=== PATIENT | female | born 1930 | race African-American/Black ===

== ENCOUNTER 2016-11-27 12:55 | Emergency (ER) | payer MEDICARE ==
[~2016-11-27] VITALS: Ht 162.6 cm; Wt 68.0 kg
[~2016-11-27 12:55] MED LIST: AMLO10 PO; ATOR20TA PO; BACT800T5 PO; BISA10SU PR; CEFU1TAB20 PO; GLUCTAB PO; LEVO50TA51 PO; LORA-474 PO; NAME10TA PO; OMEP20TA PO; PLAV75TA PO
[2016-11-27 12:57] VITALS: BP 180/77; PULSE 17; PULSE 96; RESP 17; TEMP 98.2; O2SAT 98
[2016-11-27] MEDS ORDERED: METF1000 PO (16:09)
[2016-11-27] MEDS ORDERED: LORA1TAB12 PO (16:14)
[2016-11-27] MEDS ORDERED: NAME10TA PO (16:14)
[2016-11-27] MEDS ORDERED: OMEP20TA PO (16:14)
[2016-11-27] MEDS ORDERED: AMLO10 PO (16:14)
[2016-11-27] MEDS ORDERED: PLAV75TA29 PO (16:14)
[2016-11-27] MEDS ORDERED: ATOR20TA15 PO (16:14)
[2016-11-27] MEDS ORDERED: LEVO50TA53 PO (16:14)
[2016-11-27] MEDS ORDERED: CIPR-9 PO (16:18)
--- NOTE | 2016-11-27 16:19 | PD ---
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 Patient states that she saw blood clot in her diaper 3 days ago. Patient denies any headache. Patient denies any chest pain or shortness of breath. Patient denies abdominal pain. Patient will denies any pelvic pain. Patient denies any rectal pain. Patient has history of TIA on Plavix. Patient also has history hypertension, diabetes, dyslipidemia. Patient status post hysterectomy. PFSH Past Medical History Hx Anticoagulant Therapy: Yes (PLAVIX) Blood Disorders: No Anxiety: Yes Cancer: No Cardiovascular Problems: Yes (murmer) Cerebrovascular Accident: Yes (TIA) Dementia: Yes Diabetes: Yes Patient Takes Glucophage: Yes Diminished Hearing: No Endocrine: Yes Gastrointestinal Disorders: No Genitourinary: No Hypertension: Yes Immune Disorder: No Musculoskeletal: No Neurologic: No Psychiatric: No Reproductive: No Respiratory: No Thyroid Disease: Yes (hypo) ?: Not Menopausal: Yes Past Surgical History AICD: No Arteriovenous Shunt: No Gynecologic Surgery: Yes (HYSTERECTOMY) Hysterectomy: Yes Insulin Pump: No Joint Replacement: No Oral Surgery: Yes (UPPER TEETH REMOVED) Pacemaker: No Other Surgery: Yes Social History Alcohol Use: No Tobacco Use: No Substance Use: No Allergies-Medications (Allergen,Severity, Reaction): Coded Allergies: No Known Allergies (Verified , 11/15/15) Reported Meds & Prescriptions Reported Meds & Active Scripts Active Bactrim DS (Sulfamethoxazole-Trimethoprim DS) 1 Tab Tab 1 Tab PO BID 5 Days Reported Plavix (Clopidogrel Bisulfate) 75 Mg Tab 75 Mg PO DAILY Atorvastatin 20 mg tab (Atorvastatin Calcium) 20 Mg Tab 20 Mg PO DAILY 30 Days Cefuroxime Axetil 500 Mg Tab 500 Mg PO BID Bisacodyl 10 Mg Sup 10 Mg RI DAILY PRN Metformin (Metformin HCl) 500 Mg Tab 1,000 Mg PO TAKE ONE TAB WITH BREAKFAST AND 2 WITH DINNER, Omeprazole 20 mg (Omeprazole) 20 Mg Tab 20 Mg PO DAILY Namenda (Memantine) 10 Mg Tab 10 Mg PO BIDAC Norvasc (Amlodipine Besylate) 10 Mg Tab 10 Mg PO DAILY Ativan (Lorazepam) 1 Mg Tab 1 Mg PO BIDPRN Levoxyl (Levothyroxine Sodium) 50 Mcg Tab 75 Mcg PO DAILY Review of Systems General / Constitutional: No: Fever Eyes: No: Visual changes HENT: No: Headaches Cardiovascular: No: Chest Pain or Discomfort Respiratory: No: Shortness of Breath Gastrointestinal: No: Abdominal Pain Genitourinary: No: Dysuria Musculoskeletal: No: Pain Skin: No Rash Neurologic: No: Weakness Psychiatric: No: Depression Endocrine: No: Polydipsia Hematologic/Lymphatic: No: Easy Bruising Physical Exam Narrative GENERAL: Well-nourished, well-developed patient. SKIN: Warm and dry. HEAD: Normocephalic. EYES: No scleral icterus. No injection or drainage. NECK: Supple, trachea midline. No JVD or lymphadenopathy. CARDIOVASCULAR: Regular rate and rhythm without murmurs, gallops, or rubs. RESPIRATORY: Breath sounds equal bilaterally. No accessory muscle use. GASTROINTESTINAL: Abdomen soft, non-tender, nondistended. MUSCULOSKELETAL: No cyanosis, or edema. BACK: Nontender without obvious deformity. No CVA tenderness. 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 Patient has a small tear posterior aspect of the rectal without active bleeding. Data Data Last Documented VS Vital Signs Date Time Temp Pulse Resp B/P Pulse Ox O2 Delivery O2 Flow Rate FiO2 11/27/16 12:57 98.2 96 17 180/77 98 MDM Medical Decision Making Medical Screen Exam Complete: Yes Emergency Medical Condition: Yes Differential Diagnosis Differential diagnosis including hemorrhagic cystitis, vaginal bleeding, rectal bleeding. Narrative Course 86-year-old female with rectal tear. Patient is on Plavix. No active bleeding now. Diagnosis Primary Impression: Rectal tear Patient Instructions: General Instructions Additional Instructions: Cipro as directed. Follow-up with personal physician. Return if persistent problem or worse. Med/Other Pt SpecificInfo: Prescription(s) given Scripts Ciprofloxacin (Cipro)500 Mg [id number] Mg PO BID #10 TAB Prov:Aquiles Valdes MD 11/27/16 Disposition: 01 DISCHARGE HOME Condition: Stable Aquiles Valdes MD Nov 27, 2016 16:19
== END 2016-11-27 16:28 | disposition home or self-care (01) ==
LOC: NEPD 12:55
DX: K62.5 Hemorrhage of anus and rectum (principal); Z86.73 Personal history of transient ischemic attack (TIA), and cerebral infarction without residual deficits; I10 Essential (primary) hypertension; E03.9 Hypothyroidism, unspecified; Z79.01 Long term (current) use of anticoagulants
CPT/HCPCS: 99282

== ENCOUNTER 2018-05-07 09:17 | Inpatient (IN) ==
[2018-05-08] MEDS ORDERED: Labetalol HCl Inj 100 MG/20 ML Vial IV.PUSH PRN
[2018-05-08] MEDS ORDERED: LORazepam 1 MG Tablet PO PRN
[2018-05-08] MEDS ORDERED: Dextrose 50% in Water 50 ML Vial IV.PUSH PRN (00:01)
[2018-05-08 03:24] LABS: Free T4 (Free Thyroxine) 1.38 ng/dL (0.76-1.46); Thyroid Stimulating Hormone 0.824 uIU/mL (0.358-3.740); Vitamin B12 140 pg/mL (193-986)
[2018-05-08 04:07] LABS: Creatine Kinase 82 U/L (26-192)
[2018-05-08] MEDS: Levothyroxine 50 MCG Tablet PO SCH (05:35)
[2018-05-08] MEDS: Sod Chloride 0.9% Inj 1,000 ML IV.SIG SCH ×3 (05:39→22:09)
[2018-05-08] MEDS: Insulin NovoLOG Aspart Correctional Sugar Inj SQ SCH ×4 (05:45→22:05)
[2018-05-08 08:55] LABS: Chol/HDL Ratio 6.45 Ratio; HDL Cholesterol 31.3 mg/dL (40.0-60.0)
[2018-05-08] MEDS: amLODIPine 10 MG Tablet PO SCH (10:01)
[2018-05-08] MEDS: Nitrofurantoin Monohydrate-Macrocrystal 100 MG Capsule PO SCH ×2 (10:01→22:06)
--- NOTE | 2018-05-08 11:46 | P.PNNEU ---
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 sr she has worsened overnoc Active Medications: Active Medications Generic Name Dose Route Start Last Admin Trade Name Rocco PRN Reason Stop Dose Admin Amlodipine Besylate 10 mg 05/08/18 09:00 05/08/18 10:01 Norvasc PO Not Given DAILY [facility] Aspirin 300 mg 05/08/18 11:24 Aspirin Supp RECTAL 05/08/18 11:25 ONCE ONE Aspirin 325 mg 05/08/18 09:00 05/08/18 10:00 Ecotrin PO Not Given DAILY [facility] Atorvastatin Calcium 20 mg 05/08/18 12:30 Lipitor PO HS [facility] Clopidogrel Bisulfate 75 mg 05/08/18 09:00 05/08/18 10:01 Plavix PO Not Given DAILY [facility] Dextrose 50 ml 05/08/18 00:01 D50w Vial IV.PUSH UNSCH PRN PER HYPOGLYCEMIA PROTOCOL Enoxaparin Sodium 30 mg 05/08/18 12:30 Lovenox Inj SQ Q24H [facility] Glucagon 1 mg 05/08/18 00:01 Glucagon Inj OTHER PRN PRN for Hypoglycemia Protocol Sodium Chloride 1,000 mls @ 75 mls/hr 05/08/18 00:00 05/08/18 05:39 Ns Inj IV.SIG 75 mls/hr .[id number] [facility] Administration Insulin Aspart 0 unit 05/08/18 00:01 05/08/18 09:23 Novolog Insulin Suppl Scale Inj SQ Not Given ACHS [facility] Protocol Labetalol HCl 10 mg 05/08/18 00:00 Trandate Inj IV.PUSH Q2H PRN SBP >220, DBP >120 Levothyroxine Sodium 50 mcg 05/08/18 06:00 05/08/18 05:35 Synthroid PO 50 mcg DAILY@0600 [facility] Administration Lorazepam 1 mg 05/08/18 00:00 Ativan PO HS PRN ANXIETY AND OR INSOMNIA Memantine 10 mg 05/08/18 09:00 05/08/18 10:01 Namenda PO Not Given BID [facility] Nitrofurantoin Macrocrystals 100 mg 05/08/18 09:00 05/08/18 10:01 [facility] Sodium Chloride 10 ml 05/08/18 09:00 05/08/18 10:01 Ns Flush IV.FLUSH Not Given BID [facility]EN Sodium Chloride 10 ml 05/08/18 00:00 Ns Flush IV.FLUSH UNSCH PRN FLUSH AFTER USING IV ACCESS Allergies/Adverse Reactions: Allergies Allergy/AdvReac Type Severity Reaction Status Date / Time No Known Allergies Allergy Unknown Uncoded 05/07/18 12:40 Physical Exam Vital signs: Vital Signs 05/08/18 00:49 05/08/18 04:40 05/08/18 08:00 Temperature 97.9 F 98 F 97.9 F Pulse Rate 80 87 77 Respiratory Rate 18 18 18 Blood Pressure 148/80 H 156/77 H 174/83 H Pulse Oximetry 98 98 100 05/08/18 09:14 Temperature Pulse Rate Respiratory Rate 18 Blood Pressure Pulse Oximetry Intake & Output 05/07/18 05/08/18 05/08/18 18:59 06:59 18:59 Intake Total 0 / 0 Balance 0 / 0 Intake: Oral 0 / 0 Other: # Incontinent Voids 6 # Bowel Movements 0 Narrative: She is awake but speech is severely dysarthric and now 0 out of 5 on the right upper and lower extremities she can move the left well. There is a right facial droop severe Objective Laboratory Results - last 24 hr 05/07/18 05/07/18 05/07/18 09:30 09:30 09:30 WBC RBC Hgb Hct MCV MCH MCHC RDW Plt Count MPV Neut % (Auto) Lymph % (Auto) [place] % (Auto) Eos % (Auto) Baso % (Auto) Neut # (Auto) Lymph # (Auto) [place] # (Auto) Eos # (Auto) Baso # (Auto) CBC Comment ESR PT 10.3 INR 1.0 APTT 25.9 Sodium 138 Potassium 4.1 Chloride 101 Carbon Dioxide 25.8 Anion Gap 11 BUN 13 Creatinine 0.94 Estimated GFR 68 L POC Glucose Random Glucose 132 H Calcium 8.9 Phosphorus 2.4 L Magnesium 1.7 Total Bilirubin 0.3 AST 31 ALT 36 Alkaline Phosphatase 88 Total Creatine Kinase 52 Troponin I LESS THAN 0.02 L B-Natriuretic Peptide 82 Total Protein 8.3 H Albumin 3.7 Triglycerides Cholesterol LDL Cholesterol, Calc HDL Cholesterol Cholesterol/HDL Ratio Vitamin B12 TSH Free T4 Urine Color Urine Turbidity Urine pH Ur Specific [place] Urine Protein Urine Glucose (UA) Urine Ketones Urine Occult Blood Urine Nitrite Urine Bilirubin Urine Urobilinogen Ur Leukocyte Esterase Urine RBC Urine WBC Ur Squamous Epith Cells Urine Bacteria Micro UA Comment 05/07/18 05/07/18 05/07/18 09:30 10:20 18:00 WBC 10.1 RBC 4.36 Hgb 11.7 Hct 34.9 L MCV 79.9 L MCH 26.8 L MCHC 33.5 RDW 14.6 Plt Count 299 MPV 8.3 Neut % (Auto) 68.3 Lymph % (Auto) 21.0 [place] % (Auto) 7.7 Eos % (Auto) 2.3 Baso % (Auto) 0.7 Neut # (Auto) 6.9 Lymph # (Auto) 2.1 [place] # (Auto) 0.8 Eos # (Auto) 0.2 Baso # (Auto) 0.1 CBC Comment DIFF FINAL ESR PT INR APTT Sodium Potassium Chloride Carbon Dioxide Anion Gap BUN Creatinine Estimated GFR POC Glucose Random Glucose Calcium Phosphorus Magnesium Total Bilirubin AST ALT Alkaline Phosphatase Total Creatine Kinase 90 Troponin I LESS THAN 0.02 L B-Natriuretic Peptide Total Protein Albumin Triglycerides Cholesterol LDL Cholesterol, Calc HDL Cholesterol Cholesterol/HDL Ratio Vitamin B12 TSH Free T4 Urine Color YELLOW Urine Turbidity HAZY H Urine pH 7.0 Ur Specific [place] 1.008 Urine Protein NEG Urine Glucose (UA) NEG Urine Ketones NEG Urine Occult Blood NEG Urine Nitrite POS H Urine Bilirubin NEG Urine Urobilinogen LESS THAN 2 Ur Leukocyte Esterase SMALL H Urine RBC 1 Urine WBC 6 H Ur Squamous Epith Cells 1 Urine Bacteria MANY H Micro UA Comment CATH-CULTURE IND 05/08/18 05/08/18 05/08/18 02:00 06:03 06:03 WBC RBC Hgb Hct MCV MCH MCHC RDW Plt Count MPV Neut % (Auto) Lymph % (Auto) [place] % (Auto) Eos % (Auto) Baso % (Auto) Neut # (Auto) Lymph # (Auto) [place] # (Auto) Eos # (Auto) Baso # (Auto) CBC Comment ESR 38 H PT INR APTT Sodium Potassium Chloride Carbon Dioxide Anion Gap BUN Creatinine Estimated GFR POC Glucose Random Glucose Calcium Phosphorus Magnesium Total Bilirubin AST ALT Alkaline Phosphatase Total Creatine Kinase 82 Troponin I Less than 0.02 L B-Natriuretic Peptide Total Protein Albumin Triglycerides 174 H Cholesterol 202 H LDL Cholesterol, Calc 136 H HDL Cholesterol 31.3 L Cholesterol/HDL Ratio 6.45 Vitamin B12 140 L TSH 0.824 Free T4 1.38 Urine Color Urine Turbidity Urine pH Ur Specific [place] Urine Protein Urine Glucose (UA) Urine Ketones Urine Occult Blood Urine Nitrite Urine Bilirubin Urine Urobilinogen Ur Leukocyte Esterase Urine RBC Urine WBC Ur Squamous Epith Cells Urine Bacteria Micro UA Comment 05/08/18 09:13 WBC RBC Hgb Hct MCV MCH MCHC RDW Plt Count MPV Neut % (Auto) Lymph % (Auto) [place] % (Auto) Eos % (Auto) Baso % (Auto) Neut # (Auto) Lymph # (Auto) [place] # (Auto) Eos # (Auto) Baso # (Auto) CBC Comment ESR PT INR APTT Sodium Potassium Chloride Carbon Dioxide Anion Gap BUN Creatinine Estimated GFR POC Glucose 142 H Random Glucose Calcium Phosphorus Magnesium Total Bilirubin AST ALT Alkaline Phosphatase Total Creatine Kinase Troponin I B-Natriuretic Peptide Total Protein Albumin Triglycerides Cholesterol LDL Cholesterol, Calc HDL Cholesterol Cholesterol/HDL Ratio Vitamin B12 TSH Free T4 Urine Color Urine Turbidity Urine pH Ur Specific [place] Urine Protein Urine Glucose (UA) Urine Ketones Urine Occult Blood Urine Nitrite Urine Bilirubin Urine Urobilinogen Ur Leukocyte Esterase Urine RBC Urine WBC Ur Squamous Epith Cells Urine Bacteria Micro UA Comment Review/Management - Review/Management Plan: Impression 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 Her B12 is low we will give her B12 shot and her LDL is low she needs to be on a statin but appears to be an aspiration risk at this time. I will follow-up her echo and Holter. I would keep her flat for today.
--- NOTE | 2018-05-08 12:55 | P.PNFP ---
<Rina Wick N - Last Filed: 05/08/18 13:18> Subjective Interval history: Vitals stable overnight. MRI showed tiny areas of probably subacute infarction of the bueno radiata. Nurse reports that patient is more lethargic this morning, still not able to take PO. Pt not able to respond to questions this morning and not cooperative with exam, speech was not understandable. Results - Labs Result diagrams: 05/07/18 09:30 05/07/18 09:30 Abnormal lab results 05/07/18 05/07/18 05/07/18 Range/Units 09:30 09:30 10:20 Hct 34.9 L (35.0-46.0) % MCV 79.9 L (80.0-100.0) FL MCH 26.8 L (27.0-34.0) PG ESR (0-30) mm/hr Estimated GFR 68 L (>89) ML/MIN POC Glucose (68-110) mg/dl Random Glucose 132 H (74-106) MG/DL Phosphorus 2.4 L (2.5-4.9) MG/DL Troponin I LESS THAN 0.02 L (0.02-0.05) NG/ML Total Protein 8.3 H (6.4-8.2) GM/DL Triglycerides (42-150) mg/dL Cholesterol (120-200) mg/dL LDL Cholesterol, Calc (0-99) mg/dL HDL Cholesterol (40.0-60.0) mg/dL Vitamin B12 (193-986) pg/mL Urine Turbidity HAZY H (CLEAR) Urine Nitrite POS H (NEG) Ur Leukocyte Esterase SMALL H (NEG) Urine WBC 6 H (0-5) /hpf Urine Bacteria MANY H (NONE) /hpf 05/07/18 05/08/18 05/08/18 Range/Units 18:00 02:00 06:03 Hct (35.0-46.0) % MCV (80.0-100.0) FL MCH (27.0-34.0) PG ESR (0-30) mm/hr Estimated GFR (>89) ML/MIN POC Glucose (68-110) mg/dl Random Glucose (74-106) MG/DL Phosphorus (2.5-4.9) MG/DL Troponin I LESS THAN 0.02 L Less than 0.02 L (0.02-0.05) NG/ML Total Protein (6.4-8.2) GM/DL Triglycerides 174 H (42-150) mg/dL Cholesterol 202 H (120-200) mg/dL LDL Cholesterol, Calc 136 H (0-99) mg/dL HDL Cholesterol 31.3 L (40.0-60.0) mg/dL Vitamin B12 140 L (193-986) pg/mL Urine Turbidity (CLEAR) Urine Nitrite (NEG) Ur Leukocyte Esterase (NEG) Urine WBC (0-5) /hpf Urine Bacteria (NONE) /hpf 05/08/18 05/08/18 05/08/18 Range/Units 06:03 09:13 12:45 Hct (35.0-46.0) % MCV (80.0-100.0) FL MCH (27.0-34.0) PG ESR 38 H (0-30) mm/hr Estimated GFR (>89) ML/MIN POC Glucose 142 H 131 H (68-110) mg/dl Random Glucose (74-106) MG/DL Phosphorus (2.5-4.9) MG/DL Troponin I (0.02-0.05) NG/ML Total Protein (6.4-8.2) GM/DL Triglycerides (42-150) mg/dL Cholesterol (120-200) mg/dL LDL Cholesterol, Calc (0-99) mg/dL HDL Cholesterol (40.0-60.0) mg/dL Vitamin B12 (193-986) pg/mL Urine Turbidity (CLEAR) Urine Nitrite (NEG) Ur Leukocyte Esterase (NEG) Urine WBC (0-5) /hpf Urine Bacteria (NONE) /hpf Short CBC 05/07/18 Range/Units 09:30 WBC 10.1 (4.0-11.0) TH/MM3 Hgb 11.7 (11.6-15.3) GM/DL Hct 34.9 L (35.0-46.0) % Plt Count 299 (150-450) TH/MM3 [facility] 05/07/18 09:30 Sodium 138 Potassium 4.1 Chloride 101 Carbon Dioxide 25.8 BUN 13 Creatinine 0.94 Calcium 8.9 Cardiac Enzymes 05/07/18 05/07/18 05/08/18 Range/Units 09:30 18:00 02:00 Total Creatine Kinase 52 90 82 (26-192) U/L Troponin I LESS THAN 0.02 L LESS THAN 0.02 L Less than 0.02 L (0.02-0.05) NG/ML Liver Function 05/07/18 Range/Units 09:30 Total Bilirubin 0.3 (0.2-1.0) MG/DL AST 31 (15-37) U/L ALT 36 (10-53) U/L Alkaline Phosphatase 88 (45-117) U/L Albumin 3.7 (3.4-5.0) GM/DL Urine 05/07/18 Range/Units 10:20 Urine Color YELLOW (YELLW/STRAW) Urine pH 7.0 (5.0-8.5) Ur Specific [place] 1.008 (1.002-1.035) Urine Protein NEG (NEG-TRACE) mg/dL Urine Glucose (UA) NEG (NEG) mg/dL Physical Exam Vital signs: Vital Signs 05/08/18 00:49 05/08/18 04:40 05/08/18 08:00 Temperature 97.9 F 98 F 97.9 F Pulse Rate 80 87 77 Respiratory Rate 18 18 18 Blood Pressure 148/80 H 156/77 H 174/83 H Pulse Oximetry 98 98 100 05/08/18 09:14 Temperature Pulse Rate Respiratory Rate 18 Blood Pressure Pulse Oximetry Intake & Output 05/07/18 05/08/18 05/08/18 18:59 06:59 18:59 Intake Total 0 / 0 Balance 0 / 0 Intake: Oral 0 / 0 Other: # Incontinent Voids 6 # Bowel Movements 0 Narrative: GENERAL: This is a drowsy, Black woman laying flat in bed. Awakened to initial stimuli on exam, does not respond to most questions. Occasionally gives one word answers that are difficult to understand. SKIN: Warm and dry. HEAD: Normocephalic. EYES: No scleral icterus. No injection or drainage. NECK: Supple, trachea midline. No JVD or lymphadenopathy. CARDIOVASCULAR: Regular rate and rhythm without murmurs, gallops, or rubs. RESPIRATORY: Breath sounds equal bilaterally. No accessory muscle use. GASTROINTESTINAL: Abdomen soft, non-tender, nondistended. MUSCULOSKELETAL: No cyanosis, or edema. BACK: Nontender without obvious deformity. No CVA tenderness. NEURO: Is able to grasp left hand. Not able to lift bilateral legs or hot frame tender with right hand. Right hand remains clasped to chest, is able to be extended but shows a clasp-knife response. Right sided facial droop noted with lack of nasolabial fold. Assessment and Plan - Assessment (1) Facial droop due to stroke Status: Acute (2) Right sided weakness Code(s): R53.1 - Weakness Status: Acute (3) UTI (urinary tract infection) Code(s): N39.0 - Urinary tract infection, site not specified Status: Acute (4) DM2 (diabetes mellitus, type 2) Code(s): E11.9 - Type 2 diabetes mellitus without complications Status: Acute (5) Hypothyroidism Code(s): E03.9 - Hypothyroidism, unspecified Status: Acute (6) History of CVA (cerebrovascular accident) Code(s): Z86.73 - Personal history of transient ischemic attack (TIA), and cerebral infarction without residual deficits Status: Acute (7) HTN (hypertension) Code(s): I10 - Essential (primary) hypertension Status: Acute (8) Anxiety Code(s): F41.9 - Anxiety disorder, unspecified Status: Acute (9) Dementia Code(s): F03.90 - Unspecified dementia without behavioral disturbance Status: Acute - Plan 88-year-old female with a history of Alzheimer's dementia, stroke, diabetes mellitus 2 admitted for right facial droop and right-sided weakness. Currently NPO. Will require treatment w/oral plavix and asa long-term and treatment of UTI when PO. Currently on ASA suppository. Neuro exam worsened today. Follow-up EEG, echo, and neurology recommendations. (1) Facial droop Status: Acute Plan: Neurology consulted MRI shows subacute lesions affecting corpus callosum on the left NPO, on IVF @70 mls/hr Neurology consulted: appreciate recs, plan to HOB flat, add aspirin to plavix ( asa supp for now due to NPO) Speech therapy consulted ACS r/o 2D echo of the heart ordered. Per previous documentation, patient had [place] [address] Chau and Dr[address] 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 Ejection fraction wnl. Had the bed flat for 12 hours, n.p.o. until passes speech eval and/or facial droop resolves Con't BP med when PO PT/OT consulted EEG ordered, f/u results (2) Right sided weakness ICD Codes: R53.1 - Weakness Status: Acute Plan: See above (3) UTI (urinary tract infection) ICD Codes: N39.0 - Urinary tract infection, site not specified Status: Acute Plan: Urine cx growing Gram - rods May need IV ceftriaxone for UTI treatment When no longer NPO, Macrobid 100 mg BID PO for a course of 5 days (4) DM2 (diabetes mellitus, type 2) ICD Codes: E11.9 - Type 2 diabetes mellitus without complications Status: Chronic Plan: Home medication is metformin Sliding scale insulin Accu-Cheks (5) Hypothyroidism ICD Codes: E03.9 - Hypothyroidism, unspecified Status: Chronic Plan: Continue home levothyroxine (6) History of CVA (cerebrovascular accident) ICD Codes: Z86.73 - Personal history of transient ischemic attack (TIA), and cerebral infarction without residual deficits Status: Chronic Plan: Continue home medications of Plavix, atorvastatin, amlodipine (7) HTN (hypertension) ICD Codes: I10 - Essential (primary) hypertension Status: Chronic Plan: See above plan (8) Anxiety ICD Codes: F41.9 - Anxiety disorder, unspecified Status: Chronic Plan: Controlled on lorazepam 1 mg p.o. at bedtime as needed for anxiety/ insomnia (home medication) Hold for now due to lethargy today (9) Dementia ICD Codes: F03.90 - Unspecified dementia without behavioral disturbance Status: Chronic Plan: Continue Namenda (home) (10) FEN Plan: Fluids: 70 MLS an hour IV maintenance Electrolytes: None Nutrition: N.p.o. until passes swallow study with speech DVT prophylaxis: Lovenox, SCDs DC pending clinical improvement, will likely need a SNF. <Scot Foster R - Last Filed: 05/09/18 07:43> Results - Labs Result diagrams: 05/07/18 09:30 05/07/18 09:30 Abnormal lab results 05/08/18 05/08/18 05/08/18 Range/Units 06:03 06:03 09:13 ESR 38 H (0-30) mm/hr ABG O2 Content (12.0-20.0) Vol % Hemoglobin (12.0-16.0) G/DL POC Glucose 142 H (68-110) mg/dl Triglycerides 174 H (42-150) mg/dL Cholesterol 202 H (120-200) mg/dL LDL Cholesterol, Calc 136 H (0-99) mg/dL HDL Cholesterol 31.3 L (40.0-60.0) mg/dL 05/08/18 05/08/18 05/08/18 Range/Units 12:45 17:13 18:36 ESR (0-30) mm/hr ABG O2 Content 21.9 H (12.0-20.0) Vol % Hemoglobin 16.8 H (12.0-16.0) G/DL POC Glucose 131 H 124 H (68-110) mg/dl Triglycerides (42-150) mg/dL Cholesterol (120-200) mg/dL LDL Cholesterol, Calc (0-99) mg/dL HDL Cholesterol (40.0-60.0) mg/dL 05/08/18 Range/Units 20:48 ESR (0-30) mm/hr ABG O2 Content (12.0-20.0) Vol % Hemoglobin (12.0-16.0) G/DL POC Glucose 120 H (68-110) mg/dl Triglycerides (42-150) mg/dL Cholesterol (120-200) mg/dL LDL Cholesterol, Calc (0-99) mg/dL HDL Cholesterol (40.0-60.0) mg/dL - Imaging Impressions Head MRI 05/08/18 00:00 CONCLUSION: Small evolving stroke in the left hemisphere Physical Exam Vital signs: Vital Signs 05/08/18 08:00 05/08/18 09:14 05/08/18 12:00 Temperature 97.9 F 98 F Pulse Rate 79 67 Respiratory Rate 18 18 18 Blood Pressure 174/83 H 179/79 H Pulse Oximetry 100 97 05/08/18 16:00 05/08/18 20:00 05/08/18 22:28 Temperature 98.1 F 98.8 F Pulse Rate 83 82 82 Respiratory Rate 18 19 Blood Pressure 162/79 H 145/80 H Pulse Oximetry 97 98 05/09/18 06:29 Temperature 98 F Pulse Rate 68 Respiratory Rate 17 Blood Pressure 157/74 H Pulse Oximetry 98 Intake & Output 05/08/18 05/09/18 05/09/18 18:59 06:59 18:59 Intake Total 1000 / 1000 200 / 200 Balance 1000 / 1000 200 / 200 Intake: IV 1000 / 1000 NS Inj 1,000 ML @ 75 mls/hr IV. 1000 / 1000 SIG .[id number] CADEN Rx#:[id number] Oral 200 / 200 Other: # Voids 2 # Incontinent Voids 4 # Bowel Movements 0 Assessment and Plan - Assessment (1) Facial droop due to stroke Status: Acute (2) Right sided weakness Code(s): R53.1 - Weakness Status: Acute (3) UTI (urinary tract infection) Code(s): N39.0 - Urinary tract infection, site not specified Status: Acute (4) DM2 (diabetes mellitus, type 2) Code(s): E11.9 - Type 2 diabetes mellitus without complications Status: Acute (5) Hypothyroidism Code(s): E03.9 - Hypothyroidism, unspecified Status: Acute (6) History of CVA (cerebrovascular accident) Code(s): Z86.73 - Personal history of transient ischemic attack (TIA), and cerebral infarction without residual deficits Status: Acute (7) HTN (hypertension) Code(s): I10 - Essential (primary) hypertension Status: Acute (8) Anxiety Code(s): F41.9 - Anxiety disorder, unspecified Status: Acute (9) Dementia Code(s): F03.90 - Unspecified dementia without behavioral disturbance Status: Acute - Attending Attestation The exam, history, and the medical decision-making described in the above note were completed with the assistance of the resident physician. I reviewed and agree with the findings presented. I attest that I had a [id number] encounter with the patient on the same day, and personally performed and documented my assessment and findings in the medical record.
[2018-05-08] MEDS ORDERED: Aspirin 300 MG Supp RECTAL ONE (13:00)
[2018-05-08] MEDS: Enoxaparin Inj 30 MG/0.3 ML Syringe SQ SCH (13:32)
--- NOTE | 2018-05-08 18:08 | MR ---
EXAM DATE: 05/08/2018 5:51 PM EDT AGE/SEX: 88 years / Female INDICATIONS: Right sided weakness. Worsening symptoms. CLINICAL DATA: This is the patient's initial encounter. Patient reports that signs and symptoms have been present for 2 days and indicates a pain score of 0/10. MEDICAL/SURGICAL HISTORY: Diabetes mellitus type II. Hypertension. Hysterectomy. COMPARISON: [facility] [place], MRI BRAIN W/O CONTRAST, 05/07/2018. . TECHNIQUE: Multiplanar, multisequence examination of the brain was performed without contrast. FINDINGS: Small coalescing area of restricted diffusion in the left bueno radiata. No evidence of hemorrhage o r mass. Stable old lacunar infarcts and symmetric atrophic change. Moderate chronic ischemic white ma tter change. Extracranial structures are stable and benign. CONCLUSION: Small evolving stroke in the left hemisphere Electronically signed by: David Pelletier MD 05/08/2018 6:07 PM EDT
[2018-05-08 18:47] LABS: ABG Base Excess 0.6 mmol/L (-2-2); ABG PCO2 38 mmHg (38-42); ABG PO2 80 mmHG (61-120)
--- NOTE | 2018-05-09 07:34 | MG ---
cc: Mulugeta Dial MD EEG NUMBER: [id number] HISTORY: Left-sided stroke, right-sided weakness. MEDICATIONS: Plavix, Lovenox. DESCRIPTION: Some diffuse 6-7 Hz rhythms are noted. A little bit of slowing is seen in the left central head region in addition. No epileptiform or seizure activity is noted. Hyperventilation is not performed. A sharp wave is seen over the left central temporal head region at Epoch 87, about 4 of them, but this appears to be within a normal rhythm and does not appear to be particularly epileptiform, although there is a phase reversing wave again over the left T3 at Epoch 106. No prolonged seizure activity is seen. Photic stimulation performed without significant posterior driving. IMPRESSION: A little bit of sharps on the left side. No prolonged seizure. Clinical correlation is needed. Mulugeta Dial MD DJM/DL , 07:15 AM , 07:33 AM
--- NOTE | 2018-05-09 07:50 | P.PNNEU ---
Subjective Subjective Comments: No acute events reported No headache No chest pain No dyspnea Active Medications: Active Medications Generic Name Dose Route Start Last Admin Trade Name Freq PRN Reason Stop Dose Admin Amlodipine Besylate 10 mg 05/08/18 09:00 05/08/18 10:01 Norvasc PO Not Given DAILY [facility] Aspirin 300 mg 05/09/18 09:00 Aspirin Supp RECTAL DAILY [facility] Aspirin 325 mg 05/08/18 09:00 05/08/18 10:00 Ecotrin PO Not Given DAILY [facility] Atorvastatin Calcium 20 mg 05/08/18 12:30 05/08/18 22:06 Lipitor PO Not Given HS [facility] Clopidogrel Bisulfate 75 mg 05/08/18 09:00 05/08/18 10:01 Plavix PO Not Given DAILY [facility] Dextrose 50 ml 05/08/18 00:01 D50w Vial IV.PUSH UNSCH PRN PER HYPOGLYCEMIA PROTOCOL Enalaprilat 1.25 mg 05/08/18 13:19 Vasotec Inj IV.PUSH Q6H PRN SBP>180, DBP>110 Enoxaparin Sodium 30 mg 05/08/18 12:30 05/08/18 13:32 Lovenox Inj SQ 30 mg Q24H [facility] Administration Glucagon 1 mg 05/08/18 00:01 Glucagon Inj OTHER PRN PRN for Hypoglycemia Protocol Sodium Chloride 1,000 mls @ 75 mls/hr 05/08/18 00:00 05/08/18 22:09 Ns Inj IV.SIG 75 mls/hr .[id number] [facility] Administration Insulin Aspart 0 unit 05/08/18 00:01 05/08/18 22:05 Novolog Insulin Suppl Scale Inj SQ Not Given ACHS [facility] Protocol Labetalol HCl 10 mg 05/08/18 00:00 Trandate Inj IV.PUSH Q2H PRN SBP >220, DBP >120 Levothyroxine Sodium 50 mcg 05/08/18 06:00 05/08/18 05:35 Synthroid PO 50 mcg DAILY@0600 [facility] Administration Memantine 10 mg 05/08/18 09:00 05/08/18 22:06 Namenda PO Not Given BID [facility] Nitrofurantoin Macrocrystals 100 mg 05/08/18 09:00 05/08/18 22:06 [facility] S[facility] Chlor[facility] 10 ml 05/08/18 09:00 05/08/18 22:07 Ns Flush IV.FLUSH Not Given BID [facility] Sodium Chloride 10 ml 05/08/18 00:00 Ns Flush IV.FLUSH UNSCH PRN FLUSH AFTER USING IV ACCESS Allergies/Adverse Reactions: Allergies Allergy/AdvReac Type Severity Reaction Status Date / Time No Known Allergies Allergy Unknown Uncoded 05/07/18 12:40 Physical Exam Vital signs: Vital Signs 05/08/18 08:00 05/08/18 09:14 05/08/18 12:00 Temperature 97.9 F 98 F Pulse Rate 79 67 Respiratory Rate 18 18 18 Blood Pressure 174/83 H 179/79 H Pulse Oximetry 100 97 05/08/18 16:00 05/08/18 20:00 05/08/18 22:28 Temperature 98.1 F 98.8 F Pulse Rate 83 82 82 Respiratory Rate 18 19 Blood Pressure 162/79 H 145/80 H Pulse Oximetry 97 98 05/09/18 06:29 Temperature 98 F Pulse Rate 68 Respiratory Rate 17 Blood Pressure 157/74 H Pulse Oximetry 98 Intake & Output 05/08/18 05/09/18 05/09/18 18:59 06:59 18:59 Intake Total 1000 / 1000 200 / 200 Balance 1000 / 1000 200 / 200 Intake: IV 1000 / 1000 NS Inj 1,000 ML @ 75 mls/hr IV. 1000 / 1000 SIG .[id number] [facility] Rx#:[id number] Oral 200 / 200 Other: # Voids 2 # Incontinent Voids 4 # Bowel Movements 0 Narrative: much more awake dysarthric can withdraw rle marked inc tone rue not moving can stick out tongue for me r droop severe Objective Laboratory Results - last 24 hr 05/08/18 05/08/18 05/08/18 06:03 06:03 09:13 ESR 38 H Puncture Site Patient Temperature O2 Saturation ABG pH ABG pCO2 ABG pO2 ABG HCO3 ABG O2 Content ABG Base Excess ABG Methemoglobin Jaleel Test Cap Carboxyhemoglobin Hemoglobin Inspired O2 Critical Value POC Glucose 142 H Triglycerides 174 H Cholesterol 202 H LDL Cholesterol, Calc 136 H HDL Cholesterol 31.3 L Cholesterol/HDL Ratio 6.45 05/08/18 05/08/18 05/08/18 12:45 17:13 18:36 ESR Puncture Site Right radial Patient Temperature 98.6 O2 Saturation 93 ABG pH 7.42 ABG pCO2 38 ABG pO2 80 ABG HCO3 25 ABG O2 Content 21.9 H ABG Base Excess 0.6 ABG Methemoglobin 1.2 Jaleel Test Present Cap Carboxyhemoglobin 1.0 Hemoglobin 16.8 H Inspired O2 21 Critical Value No POC Glucose 131 H 124 H Triglycerides Cholesterol LDL Cholesterol, Calc HDL Cholesterol Cholesterol/HDL Ratio 05/08/18 20:48 ESR Puncture Site Patient Temperature O2 Saturation ABG pH ABG pCO2 ABG pO2 ABG HCO3 ABG O2 Content ABG Base Excess ABG Methemoglobin Jaleel Test Cap Carboxyhemoglobin Hemoglobin Inspired O2 Critical Value POC Glucose 120 H Triglycerides Cholesterol LDL Cholesterol, Calc HDL Cholesterol Cholesterol/HDL Ratio Review/Management - Review/Management Plan: Impression 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 Her B12 is low we will give her B12 shot and her LDL is low she needs to be on a statin but appears to be an aspiration risk at this time. I will follow-up her echo and Holter. I would keep her flat for today. 05/09/18 looks beter unclear if got ativan few noc ago i dced it mri no major change eeg some slight left sharps but considering lethargy recently no aed no clinical sz oob today ok
[2018-05-09] MEDS ORDERED: Aspirin 300 MG Supp RECTAL PRN (09:00)
[2018-05-09] MEDS: amLODIPine 10 MG Tablet PO SCH (09:19)
[2018-05-09] MEDS: Nitrofurantoin Monohydrate-Macrocrystal 100 MG Capsule PO SCH ×2 (09:19→18:03)
[2018-05-09] MEDS: Levothyroxine 50 MCG Tablet PO SCH (09:20)
[2018-05-09] MEDS: Insulin NovoLOG Aspart Correctional Sugar Inj SQ SCH ×4 (09:36→23:39)
--- NOTE | 2018-05-09 09:46 | P.PN ---
Subjective Interval history: This patient was seen at bedside this morning and reports to be doing "good". Overnight she presented with regressive mental status. The patient was seen by the call team and neurology was contacted, an MRI and ABG were ordered. This morning the patient is more interactive than yesterday and although she cannot speak clearly is still able to answer questions. She told the team to have a great day as well asked where her was. Nurse reported speaking with who reported that she is currently at baseline. I spoke with the personally via phone and he confirmed that her motor function is significantly impacted by her recent stroke but her mental status is very close to baseline. She denies any pain, nausea, or vomiting. Physical Exam Vital signs: Vital Signs 05/08/18 12:00 05/08/18 16:00 05/08/18 20:00 Temperature 98 F 98.1 F Pulse Rate 67 83 82 Respiratory Rate 18 18 Blood Pressure 179/79 H 162/79 H Pulse Oximetry 97 97 05/08/18 22:28 05/09/18 06:29 05/09/18 08:51 Temperature 98.8 F 98 F 98.2 F Pulse Rate 82 68 79 Respiratory Rate 19 17 20 Blood Pressure 145/80 H 157/74 H 159/83 H Pulse Oximetry 98 98 98 Intake & Output 05/08/18 05/09/18 05/09/18 18:59 06:59 18:59 Intake Total 1000 / 1000 200 / 200 Balance 1000 / 1000 200 / 200 Intake: IV 1000 / 1000 NS Inj 1,000 ML @ 75 mls/hr IV. 1000 / 1000 SIG .[id number] [facility] Rx#:[id number] Oral 200 / 200 Other: # Voids 2 # Incontinent Voids 4 # Bowel Movements 0 - Constitutional no acute distress, cooperative - Routine HEENT Exam Head: Present: normocephalic, atraumatic - Routine Respiratory Exam Present: prolonged expiratory phase, wheezes. Absent: accessory muscle use, respiratory distress, rhonchi, stridor Comments: Wheezing in upper left lung - Routine Cardiovascular Exam Present: RRR, S1, S2. Absent: murmur, gallop, rubs - Routine Abdominal Exam Present: soft, normoactive bowel sounds. Absent: tenderness, distended, rebound , guarding, organomegaly - Detailed Abdominal Exam Palpation/Percussion: Absent: hepatomegaly, splenomegaly - Routine Extremities Exam Present: pulses intact. Absent: clubbing, edema, tenderness - Routine Skin Exam Present: intact, dry. Absent: erythema - Routine Neurological Exam Present: alert, motor deficit, altered mental status, hearing grossly intact, facial asymmetry. Absent: moving all extremities, normal speech Right facial droop with loss of nasolabial fold - Detailed Neurological Exam Brainstem reflexes: Present decorticate posturing (Right upper extremity. Right fist closed and held to chest at rest.) Cranial nerves: Abnormal CN II (Patient agreed to track with her eyes but could not in any direction. ) Speech: Present: expressive aphasia, slurred Neuro motor strength exam: LLE 3/5 (Able to raise leg a couple inches off of bed against gravity but not against resistance. 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 ), RUE 1/5 - Detailed Neurological Exam: Coma Scale Eye Opening: Spontaneous Verbal Response: Sounds Motor Response: Obey commands [place] Coma Scale Total: 12 - Routine Psychiatric Exam Present: unable to assess Results - Labs CBC & Chem 7: 05/10/18 09:16 05/10/18 09:16 Laboratory Results - last 24 hr 05/08/18 05/08/18 05/08/18 06:03 12:45 17:13 ESR 38 H Puncture Site Patient Temperature O2 Saturation ABG pH ABG pCO2 ABG pO2 ABG HCO3 ABG O2 Content ABG Base Excess ABG Methemoglobin Jaleel Test Cap Carboxyhemoglobin Hemoglobin Inspired O2 Critical Value POC Glucose 131 H 124 H 05/08/18 05/08/18 05/09/18 18:36 20:48 07:54 ESR Puncture Site Right radial Patient Temperature 98.6 O2 Saturation 93 ABG pH 7.42 ABG pCO2 38 ABG pO2 80 ABG HCO3 25 ABG O2 Content 21.9 H ABG Base Excess 0.6 ABG Methemoglobin 1.2 Jaleel Test Present Cap Carboxyhemoglobin 1.0 Hemoglobin 16.8 H Inspired O2 21 Critical Value No POC Glucose 120 H 120 H - Imaging Impressions Head MRI 05/08/18 00:00 CONCLUSION: Small evolving stroke in the left hemisphere Head MRI 05/09/18 Conclusion: No notable changes from previous MRI. EEG 05/09/18 IMPRESSION: Per neurology a small amount of "sharps" on the left side. No prolonged seizure. - ABG Attestation: I personally reviewed and interpreted this ABG as follows: Assessment and Plan - Assessment (1) Facial droop due to stroke Status: Acute (2) Right sided weakness Code(s): R53.1 - Weakness Status: Acute (3) UTI (urinary tract infection) Code(s): N39.0 - Urinary tract infection, site not specified Status: Acute Plan: Patient was diagnosed with UTI via urinalysis. - Continue Macrobid (4) DM2 (diabetes mellitus, type 2) Code(s): E11.9 - Type 2 diabetes mellitus without complications Status: Acute Plan: This patients bedside POC glucose levels have been between 142 to 120 with a glucose level of 133 this morning. - Continue sliding scale insulin (5) Hypothyroidism Code(s): E03.9 - Hypothyroidism, unspecified Status: Acute Plan: - Continue Levothyroxine 50 mcg (6) History of CVA (cerebrovascular accident) Code(s): Z86.73 - Personal history of transient ischemic attack (TIA), and cerebral infarction without residual deficits Status: Acute (7) HTN (hypertension) Code(s): I10 - Essential (primary) hypertension Status: Acute Plan: This patient has exhibited increasing blood pressure over the last 24 hours with the last reading being at 178/ 81. - If BP is greater than or equal to 180/ 100 administer clonidine PRN - Continue Amlodipine (8) Anxiety Code(s): F41.9 - Anxiety disorder, unspecified Status: Acute (9) Dementia Code(s): F03.90 - Unspecified dementia without behavioral disturbance Status: Acute Plan: Spoke with patient's who believes that the patient is at or very close to baseline mental status. - Continue Namenda - Attending Attestation CASE DISCUSSED WITH RESIDENT PHYSICIANS. I HAVE READ AND AGREE WITH ABOVE NOTE AND PLAN DISCUSSED WITH ME.
[2018-05-09] MEDS: Enoxaparin Inj 30 MG/0.3 ML Syringe SQ SCH (12:00)
[2018-05-09 13:51] LABS: Anti-Nuclear Antibody Screen Neg (Neg)
--- NOTE | 2018-05-09 15:03 | ECHRPT ---
Indication: CVA/TIA CONCLUSIONS Normal left ventricular size. Moderate concentric left ventricular hypertrophy. The left ventricular systolic function is hyperdynamic with an estimated ejection fraction in the ra nge of 65- 70%. Mitral annular calcification is present. Trace mitral valve regurgitation. Aortic valve sclerosis is present. The estimated pulmonary arterial pressure is 37mmHg. A small to moderate sized posterior pericardial effusion. BP: / HR: Rhythm: MEASUREMENTS (Male / Female) Normal Values Technical Quality: 2D ECHO LV Diastolic Diameter PLAX 3.0 cm 4.2 - 5.9 / 3.9 - 5.3 cm LV Systolic Diameter PLAX 2.0 cm IVS Diastolic Thickness 2.0 cm 0.6 - 1.0 / 0.6 - 0.9 cm LVPW Diastolic Thickness 1.0 cm 0.6 - 1.0 / 0.6 - 0.9 cm LV Relative Wall Thickness 1.0 RV Internal Dim ED PLAX 1.9 cm LA Systolic Diameter LX 3.8 cm 3.0 - 4.0 / 2.7 - 3.8 cm M-MODE Aortic Root Diameter MM 3.0 cm AV Cusp Separation MM 1.9 cm DOPPLER Mitral E Point Velocity 78.4 cm/s Mitral A Point Velocity 109.0 cm/s Mitral E to A Ratio 0.7 TR Peak Velocity 261.0 cm/s TR Peak Gradient 27.2 mmHg Right Atrial Pressure 10.0 mmHg Pulmonary Artery Systolic Pressu 37.2 mmHg Right Ventricular Systolic Press 37.2 mmHg FINDINGS LEFT VENTRICLE Normal left ventricular size. Moderate concentric left ventricular hypertrophy. The left ventricular systolic function is hyperdynamic with an estimated ejection fraction in the ra nge of 65- 70%. RIGHT VENTRICLE Normal right ventricular size and systolic function. LEFT ATRIUM The left atrial size is normal. RIGHT ATRIUM The right atrial size is normal. ATRIAL SEPTUM Normal atrial septal thickness without atrial level shunting by limited color doppler interrogation. AORTA The aortic root and proximal ascending aorta are normal in size on limited imaging. MITRAL VALVE Mitral annular calcification is present. Trace mitral valve regurgitation. AORTIC VALVE Aortic valve sclerosis is present. TRICUSPID VALVE The estimated pulmonary arterial pressure is 37mmHg. PULMONARY VALVE No pulmonary valve regurgitation or stenosis. VESSELS The inferior vena cava is normal in size. PERICARDIUM A small to moderate sized posterior pericardial effusion. Dwight Barnett MD, FACC (Electronically Signed) Final Date:09 May 2018 15:02
[2018-05-09] MEDS: Sod Chloride 0.9% Inj 1,000 ML IV.SIG SCH ×2 (18:02→23:33)
[2018-05-10] MEDS: Sod Chloride 0.9% Inj 1,000 ML IV.SIG SCH ×2 (06:28→10:00)
[2018-05-10] MEDS: Levothyroxine 50 MCG Tablet PO SCH (06:29)
--- NOTE | 2018-05-10 08:09 | P.PNNEU ---
Subjective Subjective Comments: No acute events reported No headache No chest pain No dyspnea Active Medications: Active Medications Generic Name Dose Route Start Last Admin Trade Name Freq PRN Reason Stop Dose Admin Amlodipine Besylate 10 mg 05/08/18 09:00 05/09/18 09:19 Norvasc PO 10 mg DAILY [facility] Administration Aspirin 325 mg 05/08/18 09:00 05/09/18 09:18 Ecotrin PO 325 mg DAILY [facility] Administration Atorvastatin Calcium 20 mg 05/08/18 12:30 05/09/18 23:39 Lipitor PO 20 mg HS [facility] Administration Clonidine HCl 0.1 mg 05/09/18 14:00 Catapres PO Q6H PRN SEE LABEL COMMENTS Clopidogrel Bisulfate 75 mg 05/08/18 09:00 05/09/18 09:18 Plavix PO 75 mg DAILY [facility] Administration Dextrose 50 ml 05/08/18 00:01 D50w Vial IV.PUSH UNSCH PRN PER HYPOGLYCEMIA PROTOCOL Enalaprilat 1.25 mg 05/08/18 13:19 Vasotec Inj IV.PUSH Q6H PRN SBP>180, DBP>110 Enoxaparin Sodium 30 mg 05/08/18 12:30 05/09/18 12:00 Lovenox Inj SQ 30 mg Q24H [facility] Administration Glucagon 1 mg 05/08/18 00:01 Glucagon Inj OTHER PRN PRN for Hypoglycemia Protocol Sodium Chloride 1,000 mls @ 75 mls/hr 05/08/18 00:00 05/10/18 06:28 Ns Inj IV.SIG Not Given .[id number] [facility] Insulin Aspart 0 unit 05/08/18 00:01 05/09/18 23:39 Novolog Insulin Suppl Scale Inj SQ 1 unit ACHS [facility] Administration Protocol Levothyroxine Sodium 50 mcg 05/08/18 06:00 05/10/18 06:29 Synthroid PO 50 mcg DAILY@0600 [facility] Administration Memantine 10 mg 05/08/18 09:00 05/09/18 23:38 Namenda PO 10 mg BID [facility] Administration Nitrofurantoin Macrocrystals 100 mg 05/08/18 09:00 05/09/18 18:03 Macrobid PO 100 mg BIDPC [facility] Administration Sodium Chloride 10 ml 05/08/18 09:00 05/09/18 23:39 Ns Flush IV.FLUSH 10 ml BID [facility] Administration Sodium Chloride 10 ml 05/08/18 00:00 Ns Flush IV.FLUSH UNSCH PRN FLUSH AFTER USING IV ACCESS Allergies/Adverse Reactions: Allergies Allergy/AdvReac Type Severity Reaction Status Date / Time No Known Allergies Allergy Unknown Uncoded 05/07/18 12:40 Physical Exam Vital signs: Vital Signs 05/09/18 08:51 05/09/18 12:25 05/09/18 16:00 Temperature 98.2 F 98.8 F 97.8 F Pulse Rate 79 81 88 Respiratory Rate 20 20 20 Blood Pressure 159/83 H 178/81 H 149/75 H Pulse Oximetry 98 97 98 05/09/18 20:00 05/10/18 00:00 05/10/18 04:00 Temperature 98.3 F 97.9 F 97.9 F Pulse Rate 82 93 H 81 Respiratory Rate 18 18 18 Blood Pressure 163/79 H 184/85 H 160/80 H Pulse Oximetry 97 98 99 Intake & Output 05/09/18 05/10/18 05/10/18 18:59 06:59 18:59 Intake Total 1000 / 1000 1820 / 1820 Balance 1000 / 1000 1820 / 1820 Weight 68.7 kg Intake: IV 1000 / 1000 1000 / 1000 NS Inj 1,000 ML @ 75 mls/hr IV. 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 Her B12 is low we will give her B12 shot and her LDL is low she needs to be on a statin but appears to be an aspiration risk at this time. I will follow-up her echo and Holter. I would keep her flat for today. 7/2/18 looks beter unclear if got ativan few noc ago i dced it mri no major change eeg some slight left sharps but considering lethargy recently no aed no clinical sz oob today ok 05/10/18 stable neuro she will do well and look a lot better in one month after rehab oob still await echo and holter result ow ready for rehab
[2018-05-10] MEDS: amLODIPine 10 MG Tablet PO SCH (09:29)
[2018-05-10] MEDS: Nitrofurantoin Monohydrate-Macrocrystal 100 MG Capsule PO SCH ×2 (09:30→17:58)
[2018-05-10] MEDS: Insulin NovoLOG Aspart Correctional Sugar Inj SQ SCH ×3 (09:31→17:58)
[2018-05-10 10:02] LABS: Hematocrit 38.3 % (35.0-46.0); Hemoglobin 13.1 gm/dL (11.6-15.3); Mean Corpuscular HGB Conc 34.1 % (32.0-36.0); Mean Corpuscular Hemoglobin 27.2 pg (27.0-34.0); Mean Corpuscular Volume 79.6 fL (80.0-100.0); Mean Platelet Volume 8.3 fL (7.0-11.0); Platelet Count 285 th/mm3 (150-450); Red Blood Count 4.82 mil/mm3 (4.00-5.30); Red Cell Distribution Width 14.5 % (11.6-17.2); White Blood Count 8.7 th/mm3 (4.0-11.0)
[2018-05-10 10:16] LABS: Calcium 8.9 mg/dL (8.5-10.1); Carbon Dioxide 23.9 meq/L (21.0-32.0); Potassium 3.3 meq/L (3.5-5.1)
--- NOTE | 2018-05-10 10:20 | P.PNFP ---
Subjective Interval history: Patient was seen at bedside this morning and reports do being "good". This patient had no overnight events. Patient is much more conversational this morning and spoke much more clearly than she did yesterday. She was appropriate and conversational. She denies any pain, nausea, or vomiting. She had no questions at the time of the exam. <Pratik Holcomb O - 05/10/18 17:46> Results - Labs Result diagrams: 05/10/18 09:16 05/11/18 04:25 <Scot Foster R - 05/11/18 12:50> Abnormal lab results 05/10/18 05/10/18 05/11/18 Range/Units 17:18 20:37 04:25 Carbon Dioxide 19.0 L (21.0-32.0) meq/L Estimated GFR 79 L (>89) mL/min POC Glucose 176 H 194 H (68-110) mg/dl Random Glucose 151 H (74-106) mg/dL 05/11/18 05/11/18 Range/Units 08:09 11:46 Carbon Dioxide (21.0-32.0) meq/L Estimated GFR (>89) mL/min POC Glucose 138 H 173 H (68-110) mg/dl Random Glucose (74-106) mg/dL BMP 05/11/18 04:25 Sodium 139 Potassium 5.1 D Chloride 107 Carbon Dioxide 19.0 L BUN 7 Creatinine 0.83 Calcium 8.9 <Scot Foster R - 05/11/18 12:50> Abnormal lab results 05/09/18 05/09/18 05/09/18 Range/Units 12:00 18:02 23:27 MCV (80.0-100.0) fL POC Glucose 133 H 130 H 189 H (68-110) mg/dl 05/10/18 05/10/18 Range/Units 07:45 09:16 MCV 79.6 L (80.0-100.0) fL POC Glucose 171 H (68-110) mg/dl Short CBC 05/10/18 Range/Units 09:16 WBC 8.7 (4.0-11.0) th/mm3 Hgb 13.1 (11.6-15.3) gm/dL Hct 38.3 (35.0-46.0) % Plt Count 285 (150-450) th/mm3 <Pratik Holcomb O - 05/10/18 10:20> - Imaging Echocardiogram 05/09/18: CONCLUSIONS Normal left ventricular size. Moderate concentric left ventricular hypertrophy. The left ventricular systolic function is hyperdynamic with an estimated ejection fraction in the range of 65- 70%. Mitral annular calcification is present. Trace mitral valve regurgitation. Aortic valve sclerosis is present. The estimated pulmonary arterial pressure is 37mmHg. A small to moderate sized posterior pericardial effusion. <Pratik Holcomb Paul - 05/10/18 10:54> Physical Exam Vital signs: Vital Signs 05/10/18 16:00 05/10/18 20:00 05/11/18 00:00 Temperature 98.4 F 98.8 F 97.6 F Pulse Rate 72 83 88 Respiratory Rate 16 16 16 Blood Pressure 170/80 H 175/83 H 155/75 H Pulse Oximetry 100 99 99 05/11/18 04:00 05/11/18 08:00 Temperature 97.7 F 98.5 F Pulse Rate 82 Respiratory Rate 18 18 Blood Pressure 165/86 H 181/82 H Pulse Oximetry 98 98 Intake & Output 05/10/18 05/11/18 05/11/18 18:59 06:59 18:59 Intake Total 1000 / 1000 1000 / 1000 Output Total 500 / 500 Balance 1000 / 1000 500 / 500 Weight 68.2 kg Intake: IV 1000 / 1000 1000 / 1000 NS Inj 1,000 ML @ 75 mls/hr IV. 1000 / 1000 1000 / 1000 SIG .[id number] CADEN Rx#:[id number] Output: Urine 500 / 500 Other: # Voids 1 <Scot Foster R - 05/11/18 12:50> Vital Signs 05/09/18 12:25 05/09/18 16:00 05/09/18 20:00 Temperature 98.8 F 97.8 F 98.3 F Pulse Rate 81 88 82 Respiratory Rate 20 20 18 Blood Pressure 178/81 H 149/75 H 163/79 H Pulse Oximetry 97 98 97 05/10/18 00:00 05/10/18 04:00 05/10/18 08:00 Temperature 97.9 F 97.9 F 97.9 F Pulse Rate 93 H 81 81 Respiratory Rate 18 18 16 Blood Pressure 184/85 H 160/80 H 167/81 H Pulse Oximetry 98 99 99 Intake & Output 05/09/18 05/10/18 05/10/18 18:59 06:59 18:59 Intake Total 1000 / 1000 1820 / 1820 1000 / 1000 Balance 1000 / 1000 1820 / 1820 1000 / 1000 Weight 68.7 kg Intake: IV 1000 / 1000 1000 / 1000 1000 / 1000 NS Inj 1,000 ML @ 75 mls/hr IV. 1000 / 1000 1000 / 1000 1000 / 1000 SIG .[id number] CADEN Rx#:[id number] Oral 120 / 120 Other 700 / 700 Other: # Incontinent Voids 3 # Bowel Movements 1 <Pratik Holcomb 05/10/18 10:54> - Constitutional no acute distress, cooperative <Pratik Holcomb 05/10/18 10:54> - Routine HEENT Exam Head: Present: normocephalic, atraumatic <Pratik Holcomb 05/10/18 10:54> Eye: Present: EOMI (Some difficulty tracking to the right but is able to track with time.) <AichaPratik Paul 05/10/18 10:54> - Routine Respiratory Exam Present: CTA bilaterally. Absent: respiratory distress, rhonchi, stridor, wheezes, crackles <Pratik Holcomb 05/10/18 10:54> - Routine Cardiovascular Exam Present: RRR, S1, S2. Absent: murmur, gallop, rubs <Pratik Holcomb 05/10/18 10:54> - Routine Abdominal Exam Present: soft, normoactive bowel sounds. Absent: tenderness, distended, rebound , guarding, organomegaly <HolcombPratik Paul 05/10/18 10:54> - Detailed Abdominal Exam Bowel sounds: hypoactive <Pratik Holcomb 05/10/18 10:54> - Routine Extremities Exam Present: pulses intact (DP pulses 2+ on the left 1+ on the right). Absent: cyanosis, clubbing, edema <Pratik Holcomb 05/10/18 10:54> - Routine Neurological Exam Present: alert, motor deficit (Little to no motor movement in upper and lower extremeties), facial asymmetry (Right sided facial droop with loss of nasalabial fold). Absent: oriented X3 (Oriented X2 to self and place), CN II- XII intact (CN 11 could not be assessed) <Pratik Holcomb 05/10/18 10:54> - Detailed Neurological Exam: Coma Scale Eye Opening: Spontaneous <Pratik Holcomb 05/10/18 10:54> Verbal Response: Oriented <Pratik Holcomb 05/10/18 10:54> Motor Response: Obey commands <Pratik Holcomb 05/10/18 10:54> [place] Coma Scale Total: 15 <Pratik Holcomb 05/10/18 17:46> - Routine Psychiatric Exam Present: normal affect. Absent: normal thought process <Pratik Holcomb 05/10 10:54> Assessment and Plan - Assessment (1) CVA (cerebral vascular accident) Code(s): I63.9 - Cerebral infarction, unspecified Status: Acute (2) UTI (urinary tract infection) Code(s): N39.0 - Urinary tract infection, site not specified Status: Acute (3) DM2 (diabetes mellitus, type 2) Code(s): E11.9 - Type 2 diabetes mellitus without complications Status: Chronic (4) Hypothyroidism Code(s): E03.9 - Hypothyroidism, unspecified Status: Chronic (5) History of CVA (cerebrovascular accident) Code(s): Z86.73 - Personal history of transient ischemic attack (TIA), and cerebral infarction without residual deficits Status: Chronic (6) HTN (hypertension) Code(s): I10 - Essential (primary) hypertension Status: Acute (7) Anxiety Code(s): F41.9 - Anxiety disorder, unspecified Status: Chronic (8) Dementia Code(s): F03.90 - Unspecified dementia without behavioral disturbance Status: Chronic <Scot Foster R - 05/11/18 12:50> (1) CVA (cerebral vascular accident) Code(s): I63.9 - Cerebral infarction, unspecified Status: Acute Plan: 88-year-old female with a history of Alzheimer's dementia, stroke, diabetes mellitus 2 admitted for right facial droop and right-sided weakness. This patient has had significant loss of motor function on the right side of her body post recent CVA but is improving in ability to speak as compared to yesterday. She is currently being followed by Neuro who are awaiting echo and holter monitor results. The echo showed no acute pathology requiring intervention and the holter monitor has not been read yet by cardiology. Upon results we will establish appropriate anticoagulation and pursue discharge with outpatient rehabilitation. (2) UTI (urinary tract infection) Code(s): N39.0 - Urinary tract infection, site not specified Status: Acute Plan: Patient was diagnosed with UTI via urinalysis. - Continue Macrobid for total of 5 days (3) DM2 (diabetes mellitus, type 2) Code(s): E11.9 - Type 2 diabetes mellitus without complications Status: Chronic Plan: This patients bedside POC glucose levels have been between 142 to 120 with a glucose level of 171 this morning. HA1C from 05/07/18 was 7.6. - Continue sliding scale insulin - Follow up with outpatient provider (4) Hypothyroidism Code(s): E03.9 - Hypothyroidism, unspecified Status: Chronic Plan: - Continue Levothyroxine 50 mcg and follow up with outpatient PCP (5) History of CVA (cerebrovascular accident) Code(s): Z86.73 - Personal history of transient ischemic attack (TIA), and cerebral infarction without residual deficits Status: Chronic Plan: Personal history of transient ischemic attack (TIA), and cerebral infarction in 2010 without residual deficits (6) HTN (hypertension) Code(s): I10 - Essential (primary) hypertension Status: Acute Plan: This patient has exhibited increasing blood pressure over the last 24 hours with the last reading being at 178/ 81. - If BP is greater than or equal to 180/ 100 administer clonidine PRN - Continue Amlodipine (7) Anxiety Code(s): F41.9 - Anxiety disorder, unspecified Status: Chronic Plan: Home medication is 1mg ativan at night. Due to CVA and fall risk hold while inpatient. (8) Dementia Code(s): F03.90 - Unspecified dementia without behavioral disturbance Status: Chronic Plan: Spoke with patient's who believes that the patient is at or very close to baseline mental status. - Continue Namenda <Pratik Holcomb O - 05/10/18 17:43> - Attending Attestation The evaluation, assessment and plan was discussed with the resident physician and I am in agreement with continued medical care as documented in this encounter. <Scot Foster R - 05/11/18 12:50> <Pratik Holcomb Filed: 05/10/18 17:43> (8) Dementia Qualifiers: Dementia type: Alzheimer's disease <Pratik Holcomb Emmanuel Filed: 05/10/18 17:43> (8) Dementia Qualifiers: Dementia type: Alzheimer's disease
[2018-05-10] MEDS: Enoxaparin Inj 30 MG/0.3 ML Syringe SQ SCH (12:37)
[2018-05-10] MEDS ORDERED: Potassium Chloride 20 MEQ Pwd Pkt NG/OG ONE (13:24)
--- NOTE | 2018-05-10 16:08 | P.DIET ---
Nutritional Evaluation Type of nutrition evaluation: initial Nutrition screening: Poor PO Intake Screening comments: Ht obtained from previous admission: 64 inches Subjective Subjective Comments: Eating ~25%. Objective - Objective % IBW: 126 Body Weight Used for Calculations: Actual (68.7) Energy Needs - Lower Range (kCal/kg): 25 Energy Needs - Upper Range (kCal/kg): 30 Lower Limit kCal/kg (kCals): 1,718 Upper Limit kCal/kg (kCals): 2,061 Lower Limit Protein Factor (Grams per Kg): 1.0 Upper Limit Protein Factor (Grams per Kg): 1.5 Lower Protein Needs (Protein): 69 Upper Protein Needs (Protein): 103 Fluid Factor (ml/kg): 30 Estimated Fluid Needs (ml): 2,061 Dietitian Reviewed in Medical Record: Current diet, Curent medications, Intake & Output, Labs, Medical history Diet Order: Pureed, Honey thickened liquids, Heart Healthy Oral Diet Intake Amount: Poor <50% Speech Therapy Recommendations: Yes (ST Following for dysphagia) Objective Comments: Hx includes Alzheimers Dementia, Stroke, DM2 Meds include synthroid Labs: HgA1c 7.6 Assessment Assessment: Pt is at high nutrition risk 2' to poor po intake, advanced age and the need for altered textured foods. Pt presents at 126% of her IBW but is only eating ~ 25%. Will send Glucerna N[place]es on trays; each 8 oz serving provides 220 kcals and 10 gms protien. If a CHO controlled diet is warranted 2' to hx of DM with a HgA1c of 7.6, recommend 1800 ADA. Recommendations: 1. D/C Heart Healthy restriction 2. Glucerna Shakes tid. RD will onitor acceptance. Dietitian to Monitor: Lab values, Glucose level, Supplement acceptance, Intake & Output, Diet tolerance, Weight change, PO Intake, Swallow recommendations, Medical course
[2018-05-11] MEDS: Sod Chloride 0.9% Inj 1,000 ML IV.SIG SCH ×2 (00:28→08:22)
[2018-05-11] MEDS: Insulin NovoLOG Aspart Correctional Sugar Inj SQ SCH ×3 (00:29→13:06)
[2018-05-11 05:19] LABS: Calcium 8.9 mg/dL (8.5-10.1); Potassium 5.1 meq/L (3.5-5.1)
[2018-05-11] MEDS: Levothyroxine 50 MCG Tablet PO SCH (06:11)
[2018-05-11] MEDS: Nitrofurantoin Monohydrate-Macrocrystal 100 MG Capsule PO SCH (08:12)
[2018-05-11] MEDS: amLODIPine 10 MG Tablet PO SCH (08:13)
--- NOTE | 2018-05-11 09:32 | P.PNNEU ---
Subjective Subjective Comments: No acute events reported No headache No chest pain No dyspnea Active Medications: Active Medications Generic Name Dose Route Start Last Admin Trade Name Freq PRN Reason Stop Dose Admin Amlodipine Besylate 10 mg 05/08/18 09:00 05/11/18 08:13 Norvasc PO 10 mg DAILY CADEN Administration Aspirin 325 mg 05/08/18 09:00 05/11/18 08:12 Ecotrin PO 325 mg DAILY CADEN Administration Atorvastatin Calcium 20 mg 05/08/18 12:30 05/11/18 00:27 Lipitor PO 20 mg HS CADEN Administration Clonidine HCl 0.1 mg 05/09/18 14:00 Catapres PO Q6H PRN SEE LABEL COMMENTS Clopidogrel Bisulfate 75 mg 05/08/18 09:00 05/11/18 08:12 Plavix PO 75 mg DAILY CADEN Administration Dextrose 50 ml 05/08/18 00:01 D50w Vial IV.PUSH UNSCH PRN PER HYPOGLYCEMIA PROTOCOL Enalaprilat 1.25 mg 05/08/18 13:19 Vasotec Inj IV.PUSH Q6H PRN SBP>180, DBP>110 Enoxaparin Sodium 30 mg 05/08/18 12:30 05/10/18 12:37 Lovenox Inj SQ 30 mg Q24H CADEN Administration Glucagon 1 mg 05/08/18 00:01 Glucagon Inj OTHER PRN PRN for Hypoglycemia Protocol Sodium Chloride 1,000 mls @ 75 mls/hr 05/08/18 00:00 05/11/18 08:22 Ns Inj IV.SIG Not Given .[id number] [facility] Insulin Aspart 0 unit 05/08/18 00:01 05/11/18 08:16 Novolog Insulin Suppl Scale Inj SQ Not Given ACHS [facility] Protocol Levothyroxine Sodium 50 mcg 05/08/18 06:00 05/11/18 06:11 Synthroid PO 50 mcg DAILY@0600 CADEN Administration Memantine 10 mg 05/08/18 09:00 05/11/18 08:12 Namenda PO 10 mg BID CADEN Administration Nitrofurantoin Macrocrystals 100 mg 05/08/18 09:00 05/11/18 08:12 Macrobid PO 05/13/18 23:59 100 mg BIDPC CADEN Administration Sodium Chloride 10 ml 05/08/18 09:00 05/11/18 08:13 Ns Flush IV.FLUSH 10 ml BID CADEN Administration Sodium Chloride 10 ml 05/08/18 00:00 Ns Flush IV.FLUSH UNSCH PRN FLUSH AFTER USING IV ACCESS Allergies/Adverse Reactions: Allergies Allergy/AdvReac Type Severity Reaction Status Date / Time No Known Allergies Allergy Unknown Uncoded 05/07/18 12:40 Physical Exam Vital signs: Vital Signs 05/10/18 12:00 05/10/18 16:00 05/10/18 20:00 Temperature 98.7 F 98.4 F 98.8 F Pulse Rate 81 72 83 Respiratory Rate 16 16 16 Blood Pressure 165/78 H 170/80 H 175/83 H Pulse Oximetry 98 100 99 05/11/18 00:00 05/11/18 04:00 05/11/18 08:00 Temperature 97.6 F 97.7 F 98.5 F Pulse Rate 88 86 Respiratory Rate 16 18 18 Blood Pressure 155/75 H 165/86 H 181/82 H Pulse Oximetry 99 98 98 Intake & Output 05/10/18 05/11/18 05/11/18 18:59 06:59 18:59 Intake Total 1000 / 1000 1000 / 1000 Output Total 500 / 500 Balance 1000 / 1000 500 / 500 Weight 68.2 kg Intake: IV 1000 / 1000 1000 / 1000 NS Inj 1,000 ML @ 75 mls/hr IV. 1000 / 1000 1000 / 1000 SIG .[id number] CADEN Rx#:[id number] Output: Urine 500 / 500 Other: # Voids 1 Narrative: r droop not aphasic notwiggle r fingers today but can r foot some Objective Laboratory Results - last 24 hr 05/10/18 05/10/18 05/10/18 09:16 09:16 11:47 WBC 8.7 RBC 4.82 Hgb 13.1 Hct 38.3 MCV 79.6 L MCH 27.2 MCHC 34.1 RDW 14.5 Plt Count 285 MPV 8.3 Sodium 139 Potassium 3.3 L Chloride 104 Carbon Dioxide 23.9 Anion Gap 11 BUN 8 Creatinine 0.79 Estimated GFR 83 L POC Glucose 166 H Random Glucose 135 H Calcium 8.9 05/10/18 05/10/18 05/11/18 17:18 20:37 04:25 WBC RBC Hgb Hct MCV MCH MCHC RDW Plt Count MPV Sodium 139 Potassium 5.1 D Chloride 107 Carbon Dioxide 19.0 L Anion Gap 13 BUN 7 Creatinine 0.83 Estimated GFR 79 L POC Glucose 176 H 194 H Random Glucose 151 H Calcium 8.9 05/11/18 08:09 WBC RBC Hgb Hct MCV MCH MCHC RDW Plt Count MPV Sodium Potassium Chloride Carbon Dioxide Anion Gap BUN Creatinine Estimated GFR POC Glucose 138 H Random Glucose Calcium Review/Management - Review/Management Plan: 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 Her B12 is low we will give her B12 shot and her LDL is low she needs to be on a statin but appears to be an aspiration risk at this time. I will follow-up her echo and Holter. I would keep her flat for today. 05/09/18 looks beter unclear if got ativan few noc ago i dced it mri no major change eeg some slight left sharps but considering lethargy recently no aed no clinical sz oob today ok 05/10/18 stable neuro she will do well and look a lot better in one month after rehab oob still await echo and holter result ow ready for rehab 05/11/18 r hand not moving this am but suspect it is on and off ready for rehab oob echo neg holter pend plavix and asa and statin
--- NOTE | 2018-05-11 12:35 | P.PNFP ---
Subjective Interval history: Patient was seen at bedside this morning and reports to be doing "good". This patient had no acute events overnight. Patient continues to show improvement in both alertness and interactive. She was seen this morning lying in bed and watching TV which is in mark contrast to her affect 2 days ago where she was minimally verbally responsive and appeared to stare off with no purposeful verbal responses. She denies any pain, nausea, or vomiting. She had no questions at the time of the exam. <Pratik Holcomb - 05/11/18 13:02> Results - Labs Result diagrams: 05/10/18 09:16 05/11/18 04:25 <Scot Foster - 05/12/18 14:07> Abnormal lab results 05/10/18 05/10/18 05/11/18 Range/Units 17:18 20:37 04:25 Carbon Dioxide 19.0 L (21.0-32.0) meq/L Estimated GFR 79 L (>89) mL/min POC Glucose 176 H 194 H (68-110) mg/dl Random Glucose 151 H (74-106) mg/dL 05/11/18 05/11/18 Range/Units 08:09 11:46 Carbon Dioxide (21.0-32.0) meq/L Estimated GFR (>89) mL/min POC Glucose 138 H 173 H (68-110) mg/dl Random Glucose (74-106) mg/dL BMP 05/11/18 04:25 Sodium 139 Potassium 5.1 D Chloride 107 Carbon Dioxide 19.0 L BUN 7 Creatinine 0.83 Calcium 8.9 <Pratik Holcomb - 05/11/18 12:35> - Imaging Echocardiogram 05/09/18: CONCLUSIONS Normal left ventricular size. Moderate concentric left ventricular hypertrophy. The left ventricular systolic function is hyperdynamic with an estimated ejection fraction in the range of 65- 70%. Mitral annular calcification is present. Trace mitral valve regurgitation. Aortic valve sclerosis is present. The estimated pulmonary arterial pressure is 37mmHg. A small to moderate sized posterior pericardial effusion. <Pratik Holcomb - 05/11/18 12:35> Physical Exam Vital signs: Vital Signs 05/10/18 16:00 05/10/18 20:00 05/11/18 00:00 Temperature 98.4 F 98.8 F 97.6 F Pulse Rate 72 83 88 Respiratory Rate 16 16 16 Blood Pressure 170/80 H 175/83 H 155/75 H Pulse Oximetry 100 99 99 05/11/18 04:00 05/11/18 08:00 Temperature 97.7 F 98.5 F Pulse Rate 82 Respiratory Rate 18 18 Blood Pressure 165/86 H 181/82 H Pulse Oximetry 98 98 Intake & Output 05/10/18 05/11/18 05/11/18 18:59 06:59 18:59 Intake Total 1000 / 1000 1000 / 1000 Output Total 500 / 500 Balance 1000 / 1000 500 / 500 Weight 68.2 kg Intake: IV 1000 / 1000 1000 / 1000 NS Inj 1,000 ML @ 75 mls/hr IV. 1000 / 1000 1000 / 1000 SIG .[id number] CADEN Rx#:[id number] Output: Urine 500 / 500 Other: # Voids 1 <HolcombPratik [facility] 05/11/18 12:35> - Constitutional no acute distress, cooperative <HolcombPratik [facility] 05/11/18 12:35> - Routine HEENT Exam Head: Present: normocephalic, atraumatic <HolcombPratik [facility] 05/11/18 12:35> Eye: Present: EOMI, PERRL. Absent: conjunctival icterus, scleral injection < HolcombPratik [facility] 05/11/18 12:35> - Routine Respiratory Exam Present: CTA bilaterally. Absent: accessory muscle use, decreased breath sounds , rhonchi, stridor, wheezes, crackles [facility] 12:35> - Routine Cardiovascular Exam Present: RRR, S1, S2. Absent: murmur, gallop, rubs [facility] 05/11/18 12:35> - Routine Abdominal Exam Present: soft. Absent: tenderness, distended, rebound, guarding <HolcombPratik [facility] 05/11/18 12:35> - Routine Extremities Exam Absent: cyanosis, clubbing, edema <HolcombPratik [facility] 05/11/18 12:35> - Routine Skin Exam Present: intact, dry. Absent: cyanosis, erythema, jaundice <Pratik Holcomb [facility] 05/11/18 12:35> - Routine Neurological Exam Present: alert, motor deficit, altered mental status (Patient suffers from alzheimers dementia ), facial asymmetry. Absent: oriented X3 (Oriented X2 to self and location), CN II-XII intact, moving all extremities, normal tone < Pratik Holcomb 05/11/18 12:35> - Detailed Neurological Exam Cranial nerves: Normal CN II, Normal CN III, Normal CN IV, Normal CN , Normal CN XII, Abnormal right CN V (Right sided facial droop), Abnormal right CN VII <Pratik Holcomb 05/11/18 12:35> - Detailed Neurological Exam: Coma Scale Eye Opening: Spontaneous <Pratik Holcomb 05/11/18 12:35> Verbal Response: Oriented <Pratik Holcomb 05/11/18 12:35> Motor Response: Obey commands <Pratik Holcomb 05/11/18 12:35> [place] Coma Scale Total: 15 <Pratik Holcomb 05/11/18 19:02> Assessment and Plan - Assessment (1) CVA (cerebral vascular accident) Code(s): I63.9 - Cerebral infarction, unspecified Status: Acute (2) UTI (urinary tract infection) Code(s): N39.0 - Urinary tract infection, site not specified Status: Acute (3) DM2 (diabetes mellitus, type 2) Code(s): E11.9 - Type 2 diabetes mellitus without complications Status: Chronic (4) Hypothyroidism Code(s): E03.9 - Hypothyroidism, unspecified Status: Chronic (5) History of CVA (cerebrovascular accident) Code(s): Z86.73 - Personal history of transient ischemic attack (TIA), and cerebral infarction without residual deficits Status: Chronic (6) HTN (hypertension) Code(s): I10 - Essential (primary) hypertension Status: Acute (7) Anxiety Code(s): F41.9 - Anxiety disorder, unspecified Status: Chronic (8) Dementia Code(s): F03.90 - Unspecified dementia without behavioral disturbance Status: Chronic <Scot Foster - 05/12/18 14:07> (1) CVA (cerebral vascular accident) Code(s): I63.9 - Cerebral infarction, unspecified Status: Acute Plan: 88-year-old female with a history of Alzheimer's dementia, stroke, diabetes mellitus 2 admitted for right facial droop and right-sided weakness. This patient has had significant loss of motor function on the right side of her body post recent CVA but is improving in ability to speak as compared to yesterday. She is currently being followed by Neuro who has cleared her for discharge. Patient will be discharge to rehabilitation. - Discharge as planned to rehabilitation - Per Neurology - DC ASA - Continue Plavix and Lovenox - Follow up with neuro in 4 weeks outpatient (2) UTI (urinary tract infection) Code(s): N39.0 - Urinary tract infection, site not specified Status: Acute Plan: Patient was diagnosed with UTI via urinalysis. Culture positive for E. Coli. - Continue Macrobid until May 13 for a total course of 5 days (3) DM2 (diabetes mellitus, type 2) Code(s): E11.9 - Type 2 diabetes mellitus without complications Status: Chronic Plan: This patients bedside POC glucose levels have been between 120 to 194 with a glucose level of 173 at 11:59 this morning. HA1C from 05/07/18 was 7.6. - Continue home medications upon discharge (4) Hypothyroidism Code(s): E03.9 - Hypothyroidism, unspecified Status: Chronic Plan: - Continue Levothyroxine 50 mcg and follow up with outpatient PCP (5) History of CVA (cerebrovascular accident) Code(s): Z86.73 - Personal history of transient ischemic attack (TIA), and cerebral infarction without residual deficits Status: Chronic Plan: Personal history of transient ischemic attack (TIA), and cerebral infarction in 2010 without residual deficits (6) HTN (hypertension) Code(s): I10 - Essential (primary) hypertension Status: Acute Plan: This patient has exhibited increasing blood pressure over the last 24 hours with the last reading being at 178/ 81. - If BP is greater than or equal to 180/ 100 administer clonidine PRN - Continue outpatient medications upon discharge (7) Anxiety Code(s): F41.9 - Anxiety disorder, unspecified Status: Chronic Plan: Home medication is 1mg ativan at night. Due to CVA and fall risk hold while inpatient. - Continue home medications when discharged. (8) Dementia Code(s): F03.90 - Unspecified dementia without behavioral disturbance Status: Chronic Plan: Spoke with patient's who believes that the patient is at or very close to baseline mental status. - Continue Namenda <Pratik Holcomb - 05/11/18 18:54> - Attending Attestation Case reviewed and discussed with the resident team. Agree with plan of care as discussed with me and documented in the resident note. <Scot Foster - 05/12/18 14:07> <Pratik Holcomb Filed: 05/11/18 18:54> (8) Dementia Qualifiers: Dementia type: Alzheimer's disease <Scot Foster Filed: 05/12/18 14:07> (8) Dementia Qualifiers: Dementia type: Alzheimer's disease <Pratik Holcomb Filed: 05/11/18 18:54> (8) Dementia Qualifiers: Dementia type: Alzheimer's disease <Scot Foster Filed: 05/12/18 14:07> (8) Dementia Qualifiers: Dementia type: Alzheimer's disease
[2018-05-11] MEDS: Enoxaparin Inj 30 MG/0.3 ML Syringe SQ SCH (13:04)
--- NOTE | 2018-05-11 19:42 | P.DS ---
Date of admission: 05/07/18 14:29 Primary care physician: No Primary Care Physician Attending physician on discharge: Scot Foster Anticipated date of discharge: 05/11/18 Brief History from admission: This patient is an 88 year old F with a history of Alzheimer's dementia, stroke , diabetes mellitus 2 admitted for right facial droop and right-sided weakness on 05/07/18. On the morning of admission the patient was found on the ground by . At the time it was noted that she was weaker on the right side w/right sided facial droop and speech slurring +urinary incontinence, no tongue biting, numbness or tingling, headache, dysphagia, or signs of injury/trauma. No seizure was observed DS: Diagnosis - Discharge Diagnosis (1) CVA (cerebral vascular accident) Status: Acute (2) UTI (urinary tract infection) Status: Acute (3) DM2 (diabetes mellitus, type 2) Status: Chronic (4) Hypothyroidism Status: Chronic (5) History of CVA (cerebrovascular accident) Status: Chronic (6) HTN (hypertension) Status: Acute (7) Anxiety Status: Chronic (8) Dementia Status: Chronic DS: Medications - Discharge Medications Prescriptions: clopidogrel [Plavix] 75 mg PO DAILY 30 Days #30 tab metformin 1,000 mg PO BID #60 tab DS: Summary Hospital Course: This patient is an 88 year old F with a history of Alzheimer's dementia, stroke , diabetes mellitus 2 admitted for right facial droop and right-sided weakness on and admitted for CVA on 05/07/18. In the ED neurology was consulted and she received aspirin 325 mg x1 and was started on plavix. Of note patient did not receive TPA and was last seen at baseline motor function the night prior to event. While inpatient the patient has been followed by Dr. Dial. Troponins were less than 0.02 serially. Over the course of her hospital stay the patients mental status continued to improve as well as her ability to speak and communicate. During her hospital stay she was found to have positive urine nitrites and leukocyte esterase as well as a urine culture that grew gram negative rods and was started on a 5 day course of macrobid. Patient to follow up outpatient with Dr. Dial in 4 weeks. Patient was hemodynamically stable at discharge and was discharged to rehab facility. Imaging: CT head showed no internal bleeding. Carotid ultrasound was negative. Cervical CT negative. MRA [place] of [place] was interpreted as normal. MRI showed small infarcts, left periventricular slightly hyperintense Echocardiogram that showed an EF of 65-70%. Mitral annular calcification is present. Trace mitral valve regurgitation. Aortic valve sclerosis is present. A small to moderate sized posterior pericardial effusion. EEG showed no prolonged seizure activity. - Time Spent with Patient Total time spent providing and/or coordinating discharge services: Exam Vital signs: Vital Signs 05/10/18 20:00 05/11/18 00:00 05/11/18 04:00 Temperature 98.8 F 97.6 F 97.7 F Pulse Rate 83 88 Respiratory Rate 16 16 18 Blood Pressure 175/83 H 155/75 H 165/86 H Pulse Oximetry 99 99 98 05/11/18 08:00 05/11/18 12:00 Temperature 98.5 F 97.6 F Pulse Rate 82 77 Respiratory Rate 18 18 Blood Pressure 181/82 H 149/70 H Pulse Oximetry 98 98 Intake & Output 05/11/18 05/11/18 05/12/18 06:59 18:59 06:59 Intake Total 1000 / 1000 Output Total 500 / 500 Balance 500 / 500 Weight 68.2 kg Intake: IV 1000 / 1000 NS Inj 1,000 ML @ 75 mls/hr IV. 1000 / 1000 SIG .[id number] CADEN Rx#:[id number] Output: Urine 500 / 500 Other: # Voids 1 - Constitutional no acute distress, obese, cooperative - Routine HEENT Exam Head: Present: normocephalic, atraumatic Eye: Present: EOMI, PERRL. Absent: conjunctival icterus - Routine Respiratory Exam Present: CTA bilaterally. Absent: decreased breath sounds, rales, respiratory distress, rhonchi, stridor, wheezes, crackles - Routine Cardiovascular Exam Present: RRR, S1, S2. Absent: murmur, gallop, rubs - Routine Abdominal Exam Present: soft, normoactive bowel sounds. Absent: tenderness, distended, rebound , guarding - Routine Extremities Exam Absent: cyanosis, clubbing, edema - Routine Neurological Exam Present: alert, altered mental status. Absent: oriented X3, CN II-XII intact, motor deficit, moving all extremities Oriented X2 to self and location, Patient suffers from alzheimers dementia - Detailed Neurological Exam Cranial nerves: Normal CN II, Normal CN III, Normal CN IV, Normal CN , Normal CN XII, Abnormal CN V (Right sided facial droop), Abnormal CN VII Speech: Present: slurred Neuro motor strength exam: LLE 5/5, RLE 0/5 Cerebellar function: Abnormal finger to nose - Detailed Neurological Exam: Coma Scale Eye Opening: Spontaneous Verbal Response: Oriented Motor Response: Obey commands Sophy Coma Scale Total: 15 - Routine Psychiatric Exam Present: normal affect, unable to assess - Detailed Psychiatric Exam Speech and movement: Present: slurred speech Results Procedures completed during hospitalization: No procedure completed during inpatient stay Labs on day of discharge: Labs from last 24 hours 05/11/18 05/11/18 05/11/18 11:46 08:09 04:25 Sodium 139 Potassium 5.1 D Chloride 107 Carbon Dioxide 19.0 L Anion Gap 13 BUN 7 Creatinine 0.83 Estimated GFR 79 L POC Glucose 173 H 138 H Random Glucose 151 H Calcium 8.9 Methylmalonic Acid 05/10/18 05/08/18 20:37 06:03 Sodium Potassium Chloride Carbon Dioxide Anion Gap BUN Creatinine Estimated GFR POC Glucose 194 H Random Glucose Calcium Methylmalonic Acid 0.21 - Impressions ITS Impressions Head MRI 05/08/18 00:00 CONCLUSION: Small evolving stroke in the left hemisphere 05/07 CT head showed no internal bleeding. Carotid ultrasound was negative. Cervical CT negative. MRA [place] was interpreted as normal. 05/08 MRI showed small infarcts, left periventricular slightly hyperintense 05/09 Echocardiogram that showed an EF of 65-70%. Mitral annular calcification is present. Trace mitral valve regurgitation. Aortic valve sclerosis is present. A small to moderate sized posterior pericardial effusion. EEG showed no prolonged seizure activity. Discharge Plan - Discharge Disposition Patient Disposition: 62 Rehab Inpatient - Discharge Condition Condition: Stable - Discharge Order Discharge Orders: Discharge Order (Routine); Ordered 05/11/18 Ordered By: Kami Grey - Discharge Details Anticipated Discharge Date: 05/11/18 - Physicians Team Primary Care Provider: Primary Care Melissai,Marlys Attending Provider: Scot Foster Other Providers: Mulugeta Dial MD ; Rina Wick MD, R1 ; Bebo Casanova MD - Rxs /Orders / Referrals /Forms Prescriptions: New amlodipine [Norvasc] 10 mg Tablet 10 mg PO DAILY Qty: 0 RF: 0 atorvastatin 20 mg Tablet 20 mg PO HS Qty: 0 RF: 0 clopidogrel [Plavix] 75 mg Tablet 75 mg PO DAILY 30 Days Qty: 30 RF: 0 enoxaparin [Lovenox] 30 mg/0.3 mL Syringe 30 mg Sub-Q Q24H Qty: 0 RF: 0 levothyroxine [Synthroid] 50 mcg Tablet 50 mcg PO DAILY@0600 RF: 0 memantine [Namenda] 10 mg Tablet 10 mg PO BID RF: 0 metformin 1,000 mg Tablet 1,000 mg PO BID Qty: 60 RF: 0 Referrals: Mulugeta Dial MD [Physician] - 06/08/18 (f/u with neurology in 4 wks) Primary Care Marlys Toth [Primary Care Provider] - 05/18/18 (f/u with pcp within 1 wk) - Post Discharge Care Plan Care Plan Goals: Discharge Care Plan Goals for Stroke You have been diagnosed with or have a high risk for a stroke, or a TIA ( transient ischemic attack). During a stroke, blood stops flowing to part of your brain. This can damage areas in the brain that control other parts of the body. Symptoms after a stroke depend on which part of the brain has been affected. Directions to Meet your Goals: 1. Diet: Based on your situation, your doctor will direct you to make changes in your diet. Some of the changes may include: * Reducing the amount of fat and cholesterol you eat * Don't add salt to your food. * Eat more fresh vegetables and fruits * Eat more lean proteins, such as fish, poultry, and beans and peas (legumes). Cut down on red meat & processed meats * Use low-fat dairy products * Limit vegetable oils and nut oils. Avoid any food that has hydrogenated listed in its ingredients. * Limit sweets and processed foods such as chips, cookies, and baked goods 2. Prevent Falls/Injury: You may be at risk of falling. Activity: * Keep your surrounding clutter free to help you walk more easily. * Your doctor and therapist may decide if you need an assistive device to walk safely. Shower/Bathing: * Test the water temperature with a hand or foot that was not affected by the stroke. * Use grab bars, a shower seat, a hand-held showerhead, and a long-handled brush. Getting Dressed: * Dress while sitting, starting with the affected side or limb. * Wear shirts that pull easily over your head. Wear pants or skirts with elastic waistbands. * Use zippers with loops attached to the pull tabs. 3. Lifestyle Modifications: * Take your medicines exactly as prescribed. Dont skip doses. * Begin an exercise program as directed by your doctor. You can benefit from simple activities such as walking or gardening. * Limit how much alcohol you drink. Men should have no more than 2 alcoholic drinks a day. Women should limit themselves to 1 alcoholic drink per day. * Know your cholesterol level. Follow your doctor's recommendations about how to keep cholesterol under control. * If you are a smoker, quit now. Joining a stop-smoking program will improve your chances of success. Ask your doctor for medicines or other methods to help you quit. * Learn stress management techniques to help you deal with stress in your home and work life. 4. Stroke Risk Factors: Once youve had a stroke, youre at greater risk for another one. Listed below are some other factors that can increase your risk for a stroke: * High blood pressure and High Cholesterol * Cigarette or cigar smoking * Diabetes * Carotid or other artery disease * Atrial fibrillation, atrial flutter, or other heart disease * Not being physically active * Obesity * Certain blood disorders such as sickle cell anemia * Drinking too much alcohol * Abusing street drugs * Race * Gender * Family history of stroke * Diet high in salty, fried, or greasy foods 5. Follow-up: * Keep your medical appointments. Close follow-up is important to stroke rehabilitation and recovery. * Some medicines require blood tests to check for progress or problems. Keep follow-up appointments for any blood tests ordered by your providers. Call 911 right away if you have: Weakness, tingling, or loss of feeling on one side of your face or body Sudden double vision or trouble seeing in one or both eyes Sudden trouble talking or slurred speech Trouble understanding others Sudden, severe headache Dizziness, loss of balance, or a sense of falling Blackouts or seizures F.A.S.T. is an easy way to remember the signs of stroke. When you see these signs, you know that you need to call 911 fast. F.A.S.T. stands for: * F is for face drooping. One side of the face is drooping or numb. When the person smiles, the smile is uneven. * A is for arm weakness. One arm is weak or numb. When the person lifts both arms at the same time, one arm may drift downward. * S is for speech difficulty. You may notice slurred speech or trouble speaking. The person can't repeat a simple sentence correctly when asked. * T is for time to call 911. If someone shows any of these symptoms, even if they go away, call 911 right away. Make note of the time the symptoms first appeared.
--- NOTE | 2018-05-13 09:33 | HM ---
Date Performed: 05/08/2018 Time Performed: 15:21:00 HOOKUP DATE: 05/08/18 03:21:00 PM Sun ANALYSIS START TIME: 05/08/2018 3:26:00 PM ANALYSIS END TIME: 05/09/2018 2:15:06 PM PATIENT AGE: 88 PATIENT HEIGHT PATIENT WEIGHT DRUG LIST PATIENT DIAGNOSIS: stroke TEST NARRATIVE: The patient's average heart rate was 79 BPM. Heart rates greater than 120 B PM were noted < 1% of the time. No episodes of bradycardia were noted. No pauses exceeding 2.0 s econds were noted. 399 ventricular ectopics, which represented < 1% of the total beat count, were noted. The highest ventricular ectopic frequency occurred from 04:00 AM to 05:00 AM Mon. During th is time 141 VE(s) occurred. Ventricular ectopics were observed as 395 isolated beat(s) and as 2 coup let(s). No runs were noted. 8355 supraventricular ectopics, which represented 8% of the total be at count, were noted. The highest supraventricular ectopic frequency occurred from 03:00 AM to 04:00 AM Mon. During this time 1174 SVE(s) occurred. No episodes of ST depression (defined as -1.0 mm or more) were noted in channel 1. No episodes of ST depression (defined as -1.0 mm or more) were no gokul in channel 2. No episodes of ST depression (defined as -1.0 mm or more) were noted in channel 3. TEST INTERPRETATION: Sinus rhythm Frequent PACs Multiple runs of nonsustained atrial tachycardia Frequent PVCs Signed by : Louie Chau
== END 2018-05-11 14:41 ==
LOC: NEDA 14:29 → N05 16:21
PROVIDERS: ADMIT Family Medicine; ATTEND Family Medicine

== ENCOUNTER 2018-05-18 14:03 | Inpatient (IN) ==
[2018-05-18] MEDS: Sod Chloride 0.9% Inj 1,000 ML IV.CONT SCH (15:00)
--- NOTE | 2018-05-18 15:09 | ED ---
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 The states the patient recently suffered a stroke and was seen at [facility] at the beginning of May for her stroke. The patient was discharged to the retirement on May 12. The patient was able to swallow and tolerate oral intake at that time, however, the states the patient will no longer swallow. The patient states she will place food in her mouth, however, will not swallow it and it pulls on the left side of the mouth. He states the patient has had poor intake for the last 2 days. The patient is a somewhat limited historian, appears to have receptive aphasia, has difficulty follow commands, does not respond appropriately to questioning. She has obvious right-sided deficits and right-sided facial droop. Home Medications Medication Instructions Recorded Confirmed bisacodyl [Dulcolax (bisacodyl)] 10 mg VT DAILY PRN 05/18/18 05/18/18 insulin lispro [Humalog U-100 1 sliding scale dose SUB-Q UD 05/18/18 05/18/18 Insulin] Previous Rx's Medication Instructions Recorded amlodipine [Norvasc] 10 mg PO DAILY #0 tab 05/11/18 atorvastatin 20 mg PO HS #0 tab 05/11/18 clopidogrel [Plavix] 75 mg PO DAILY 30 Days #30 tab 05/11/18 enoxaparin [Lovenox] 30 mg SUB-Q Q24H #0 ml 05/11/18 levothyroxine [Synthroid] 50 mcg PO DAILY@0600 tab 05/11/18 memantine [Namenda] 10 mg PO BID tab 05/11/18 metformin 1,000 mg PO BID #60 tab 05/11/18 Allergies Allergy/AdvReac Type Severity Reaction Status Date / Time No Known Allergies Allergy Verified 05/18/18 14:14 Review of Systems ROS Unobtainable unobtainable due to mental status and other Except as stated in HPI: all other systems reviewed are negative Gastrointestinal Reports dysphagia PMFSH Medical History Medical History Anxiety (Acute) Cerebral infarct (Acute) Constipation (Acute) Dementia (Acute) Diabetes (Acute) History of hysterectomy (Acute) Hyperlipidemia (Acute) Hypothyroidism (Acute) TIA (transient ischemic attack) (Acute) Social History Social History Substance History: No History of Abuse Smoking Status: Never smoker How Often Do You Have a Drink Containing Alcohol: Never Recent Travel in [facility] within the Last 8 Weeks: No Recent Out of Country Travel within the Last 8 Weeks: No Immunization History Tetanus Immunization: Unsure Hx Influenza Vaccine This Season: Unable to Assess Exam Narrative Exam Narrative: GENERAL: Awake, alert, nontoxic-appearing 88-year-old female who appears her stated age and is in no acute respiratory distress. SKIN: Focused skin assessment warm/dry. HEAD: Atraumatic. Normocephalic. EYES: No injection or drainage. ENT: No nasal bleeding or discharge. Mucous membranes pink and moist. NECK: Trachea midline. No JVD. CARDIOVASCULAR: Regular rate and rhythm. No murmur appreciated. RESPIRATORY: No accessory muscle use. Clear to auscultation. Breath sounds equal bilaterally. GASTROINTESTINAL: Abdomen soft, non-tender, nondistended. MUSCULOSKELETAL: No obvious deformities. No clubbing. No cyanosis. No edema. NEUROLOGICAL: Awake and alert. Right facial droop. Response no, but does not respond appropriately to verbal communication. Is able to move the left upper extremity and the left lower extremity. Does not move the right lower extremity or right upper extremity. PSYCHIATRIC: Appropriate mood and affect; insight and judgment normal. Course Initial Documented Vital Signs Temperature 97.9 F 05/18/18 14:11 Pulse Rate 90 05/18/18 14:11 Respiratory Rate 20 05/18/18 14:11 Blood Pressure 183/81 H 05/18/18 14:11 Pulse Oximetry 99 05/18/18 14:11 Last Documented Vital Signs Temperature 97.9 F 05/18/18 14:11 Pulse Rate 96 H 05/18/18 15:19 Respiratory Rate 18 05/18/18 15:19 Blood Pressure 163/77 H 05/18/18 15:19 Pulse Oximetry 96 05/18/18 15:19 Medical Decision Making MDM Narrative Medical decision making narrative: IV was established, labs are drawn and sent, and the patient was placed on cardiac telemetry monitoring and continuous pulse oximetry monitoring. EKG was ordered and interpreted. UA was sent to lab. I had a discussion with the patient's at bedside regarding possible swallow eval and the possibility of poor nutritional intake. I had a discussion with the patient's and the patient regarding possible gastrostomy tube placement. We did have a discussion and I did state that the patient may not improve with a gastrostomy tube and it may not improve the quality of her life or prolong her life. However, the states he would want a gastrostomy tube if indicated. Therefore, the patient will be a 23-hour observation for formal speech eval and evaluation for possible gastrostomy tube placement if warranted and indicated. I discussed the patient with Dr. Arredondo who agrees with admission. Differential Diagnosis Differential Diagnosis: Differential diagnosis includes dysphagia, aspiration, CVA sequela, poor nutritional intake, failure to thrive, dehydration, electrolyte abnormality, hypoalbuminemia. Lab Data Lab results reviewed: Yes I reviewed the patient's lab results. Lab results narrative: The patient's BUN is elevated at 28, creatinine 0.69, prerenal azotemia associated with dehydration. White count is mildly elevated at 15.4, most likely secondary to hemoconcentration. UA reveals ketones, consistent with dehydration. Result diagrams: 05/18/18 15:00 05/18/18 15:00 Lab Results 05/18/18 05/18/18 05/18/18 Range/Units 15:00 15:00 15:00 WBC 15.4 H (4.0-11.0) th/mm3 RBC 4.45 (4.00-5.30) mil/mm3 Hgb 12.0 (11.6-15.3) gm/dL Hct 35.7 (35.0-46.0) % MCV 80.1 (80.0-100.0) fL MCH 26.8 L (27.0-34.0) pg MCHC 33.5 (32.0-36.0) % RDW 14.4 (11.6-17.2) % Plt Count 300 (150-450) th/mm3 MPV 8.9 (7.0-11.0) fL Neut % (Auto) 81.8 H (16.0-70.0) % Lymph % (Auto) 10.9 (9.0-44.0) % [place] % (Auto) 6.1 (0.0-8.0) % Eos % (Auto) 0.9 (0.0-4.0) % Baso % (Auto) 0.3 (0.0-2.0) % Neut # (Auto) 12.6 H (1.8-7.7) th/mm3 Lymph # (Auto) 1.7 (1.0-4.8) th/mm3 [place] # (Auto) 0.9 (0.0-0.9) th/mm3 Eos # (Auto) 0.1 (0.0-0.4) th/mm3 Baso # (Auto) 0.0 (0.0-0.2) th/mm3 WBC Differential . Differential Comment Auto diff final PT 10.9 (9.8-11.6) sec INR 1.1 Ratio APTT 25.7 (24.3-30.1) sec Sodium 143 (136-145) meq/L Potassium 3.2 L (3.5-5.1) meq/L Chloride 105 (98-107) meq/L Carbon Dioxide 25.9 (21.0-32.0) meq/L Anion Gap 12 (5-15) meq/L BUN 28 H (7-18) mg/dL Creatinine 0.69 (0.50-1.00) mg/dL Estimated GFR Greater than 89 (>89) mL/min POC Glucose (68-110) mg/dl Random Glucose 153 H (74-106) mg/dL Calcium 9.7 (8.5-10.1) mg/dL Total Bilirubin 0.4 (0.2-1.0) mg/dL AST 28 (15-37) U/L ALT 35 (10-53) U/L Alkaline Phosphatase 81 (45-117) U/L Total Creatine Kinase 86 (26-192) U/L Total Protein 8.3 H (6.4-8.2) g/dL Albumin 3.6 (3.4-5.0) g/dL Urine Color (Yellw/Straw) Urine Clarity (Clear) Urine pH (5.0-8.5) Ur Specific [place] (1.002-1.035) Urine Protein (Neg-Trace) mg/dL Urine Glucose (UA) (Negative) mg/dL Urine Ketones (Negative) mg/dL Urine Occult Blood (Negative) Urine Nitrate (Negative) Urine Bilirubin (Negative) Urine Urobilinogen (Less than 2) mg/dL Ur Leukocyte Esterase (Negative) Urine RBC (0-3) /hpf Urine WBC (0-5) /hpf Micro UA Comment Urine Culture Comments 05/18/18 05/18/18 Range/Units 15:17 15:30 WBC (4.0-11.0) th/mm3 RBC (4.00-5.30) mil/mm3 Hgb (11.6-15.3) gm/dL Hct (35.0-46.0) % MCV (80.0-100.0) fL MCH (27.0-34.0) pg MCHC (32.0-36.0) % RDW (11.6-17.2) % Plt Count (150-450) th/mm3 MPV (7.0-11.0) fL Neut % (Auto) (16.0-70.0) % Lymph % (Auto) (9.0-44.0) % [place] % (Auto) (0.0-8.0) % Eos % (Auto) (0.0-4.0) % Baso % (Auto) (0.0-2.0) % Neut # (Auto) (1.8-7.7) th/mm3 Lymph # (Auto) (1.0-4.8) th/mm3 [place] # (Auto) (0.0-0.9) th/mm3 Eos # (Auto) (0.0-0.4) th/mm3 Baso # (Auto) (0.0-0.2) th/mm3 WBC Differential Differential Comment PT (9.8-11.6) sec INR Ratio APTT (24.3-30.1) sec Sodium (136-145) meq/L Potassium (3.5-5.1) meq/L Chloride (98-107) meq/L Carbon Dioxide (21.0-32.0) meq/L Anion Gap (5-15) meq/L BUN (7-18) mg/dL Creatinine (0.50-1.00) mg/dL Estimated GFR (>89) mL/min POC Glucose 151 H (68-110) mg/dl Random Glucose (74-106) mg/dL Calcium (8.5-10.1) mg/dL Total Bilirubin (0.2-1.0) mg/dL AST (15-37) U/L ALT (10-53) U/L Alkaline Phosphatase (45-117) U/L Total Creatine Kinase (26-192) U/L Total Protein (6.4-8.2) g/dL Albumin (3.4-5.0) g/dL Urine Color Yellow (Yellw/Straw) Urine Clarity Hazy H (Clear) Urine pH 6.0 (5.0-8.5) Ur Specific [place] 1.024 (1.002-1.035) Urine Protein 100 H (Neg-Trace) mg/dL Urine Glucose (UA) 50 (Negative) mg/dL Urine Ketones Trace H (Negative) mg/dL Urine Occult Blood Negative (Negative) Urine Nitrate Negative (Negative) Urine Bilirubin Negative (Negative) Urine Urobilinogen 4 or greater (Less than 2) mg/dL Ur Leukocyte Esterase Negative (Negative) Urine RBC 1 (0-3) /hpf Urine WBC 1 (0-5) /hpf Micro UA Comment Cath-culture not ind Urine Culture Comments Cath-cult not ind ECG Data EKG Prior to Arrival: No Attestation: I personally reviewed and interpreted this ECG as follows: Interpretation: EKG reveals sinus rhythm with frequent supraventricular premature complex. Nonspecific T-wave changes. Left axis deviation. Discharge Plan Discharge Disposition Patient Disposition: 30 Still Patient Discharge Condition Condition: Stable Discharge Details Diagnosis: Adult failure to thrive, Acute dehydration, Dysphagia Physicians Team ED Provider: Jbo Urias Primary Care Provider: Otis Huston Rxs /Orders / Referrals /Forms Prescriptions: No Action clopidogrel [Plavix] 75 mg Tablet 75 mg PO DAILY 30 Days Qty: 30 RF: 0 atorvastatin 20 mg Tablet 20 mg PO HS Qty: 0 RF: 0 amlodipine [Norvasc] 10 mg Tablet 10 mg PO DAILY Qty: 0 RF: 0 levothyroxine [Synthroid] 50 mcg Tablet 50 mcg PO DAILY@0600 RF: 0 enoxaparin [Lovenox] 30 mg/0.3 mL Syringe 30 mg Sub-Q Q24H Qty: 0 RF: 0 memantine [Namenda] 10 mg Tablet 10 mg PO BID RF: 0 metformin 1,000 mg Tablet 1,000 mg PO BID Qty: 60 RF: 0 bisacodyl [Dulcolax (bisacodyl)] 10 mg Suppository 10 mg VT DAILY PRN (Reason: Constipation) RF: 0 insulin lispro [Humalog U-100 Insulin] 100 unit/mL Cartridge 1 sliding scale dose SUB-Q UD RF: 0 Status ED Status: Admitted Observation Patient
[2018-05-18 15:29] LABS: Baso % (Auto) 0.3 % (0.0-2.0); Eos # (Auto) 0.1 th/mm3 (0.0-0.4); Eos % (Auto) 0.9 % (0.0-4.0); Hematocrit 35.7 % (35.0-46.0); Lymph # (Auto) 1.7 th/mm3 (1.0-4.8); Lymph % (Auto) 10.9 % (9.0-44.0); Mean Corpuscular HGB Conc 33.5 % (32.0-36.0); Mean Corpuscular Hemoglobin 26.8 pg (27.0-34.0); Mean Corpuscular Volume 80.1 fL (80.0-100.0); Mean Platelet Volume 8.9 fL (7.0-11.0); Mono # (Auto) 0.9 th/mm3 (0.0-0.9); Mono % (Auto) 6.1 % (0.0-8.0); Neut # (Auto) 12.6 th/mm3 (1.8-7.7); Neut % (Auto) 81.8 % (16.0-70.0); Platelet Count 300 th/mm3 (150-450); Red Blood Count 4.45 mil/mm3 (4.00-5.30); Red Cell Distribution Width 14.4 % (11.6-17.2); White Blood Count 15.4 th/mm3 (4.0-11.0)
[2018-05-18 15:38] LABS: Activated Partial Thrombo Time 25.7 sec (24.3-30.1); INR 1.1 Ratio; Prothrombin Time 10.9 sec (9.8-11.6)
[2018-05-18 15:49] LABS: Alanine Aminotransferase 35 U/L (10-53); Albumin 3.6 g/dL (3.4-5.0); Anion Gap 12 meq/L (5-15); Aspartate Aminotransferase 28 U/L (15-37); Blood Urea Nitrogen 28 mg/dL (7-18); Calcium 9.7 mg/dL (8.5-10.1); Carbon Dioxide 25.9 meq/L (21.0-32.0); Chloride 105 meq/L (98-107); Glomerular Filtration Rate Greater Than 89 mL/min (>89); Glucose,Random 153 mg/dL (74-106); Potassium 3.2 meq/L (3.5-5.1); Sodium 143 meq/L (136-145)
[2018-05-18 15:52] LABS: Alkaline Phosphatase 81 U/L (45-117); Total Protein 8.3 g/dL (6.4-8.2)
[2018-05-18 15:54] LABS: Creatine Kinase 86 U/L (26-192)
[2018-05-18 15:55] LABS: Bilirubin,Urine Negative (Negative); Clarity,Urine Hazy (Clear); Color,Urine Yellow (Yellw/Straw); Glucose,Urine (UA) 50 mg/dL (Negative); Leukocyte Esterase,Urine Negative (Negative); Nitrite,Urine Negative (Negative); Specific Gravity,Urine 1.024 (1.002-1.035); Urobilinogen,Urine 4 or Greater mg/dL (Less than 2)
[2018-05-18] MEDS ORDERED: Sodium Chlor 0.9% Inj 500 ML IV.SIG ONE (15:55)
[2018-05-18] MEDS ORDERED: Bisacodyl 10 MG Supp RECTAL PRN ×2 (18:01→18:45)
[2018-05-18] MEDS ORDERED: Dextrose 50% in Water 50 ML Vial IV.PUSH PRN (18:51)
--- NOTE | 2018-05-18 18:57 | P.HP ---
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 The patient is very drowsy, only awakens for a few questions, and answers with "okay". History supplemented from the EMR and the patient's sister Lisa Rodriguez at bedside. The patient's sister reports that the patient was actually doing better when she was discharged from the hospital on 05/12. She states the patient was able to tolerate pured diet with honey thickened liquids at that time, and was more awake/alert. She states upon her arrival to SNF, they advanced her diet to mechanical soft, and was noticing that the patient was holding the food in her mouth, and choking on her food. Patient was put back on pured diet, however still had minimal intake and the patient appeared to have some pain with swallowing. Patient sister reports that she has been more drowsy and fatigued. Denies any recent fevers or chills. She reports recurrent UTIs, however UA here has been negative. She also reports chronic constipation, however believes she had a small BM yesterday. Discussed the patient's CODE STATUS and goals of care with the patient's sister, however she is uncertain on CODE STATUS. She believes that the patient's would want full code and would want her to get stronger at rehab, however she is uncertain. Patient's sister agrees to palliative care consultation. Review of systems limited as the patient falls asleep throughout conversation/exam and has expressive aphasia and slurred speech. Plans for Post Hospital Care: SNF Review of Systems unobtainable due to mental status PMFSH - History History Provided By: Family Member, Medical Record - Medical History Medical History: Medical History (Last Updated 05/18/18 @ 18:39 by Lili De La Cruz) History of hysterectomy (Acute) Anxiety Cerebral infarct Constipation Dementia Diabetes History of hysterectomy Hyperlipidemia Hypertension Hypothyroidism TIA (transient ischemic attack) - Tobacco History Smoking Status: Never smoker - Alcohol History How Often Do You Have a Drink Containing Alcohol: Never - Substance Use History Substance History: No History of Abuse - Travel History Recent Travel in the [place] Within the Last 8 Weeks: No Recent Travel Out of the Country Within the Last 8 Weeks: No - Immunization History Tetanus Immunization: Unsure Hx Influenza Vaccine This Season: Unable to Assess Medications and Allergies Active Medications: Active Medications Acetaminophen (Tylenol) 650 mg PO Q4H PRN PRN Reason: headache/fever/pain1-5 Al Hydroxide/Mg Hydroxide (Milk Of Magnesia Liq) 30 ml PO Q12H PRN PRN Reason: Mild Constipation Bisacodyl (Dulcolax Supp) 10 mg RECTAL DAILY PRN PRN Reason: SEVERE CONSITIPATION Sodium Chloride (Ns Inj) 1,000 mls @ 125 mls/hr IV.CONT .Q8H CADEN Last Infusion: 05/18/18 16:43 Dose: 125 mls/hr Potassium Chloride/Dextrose/Sod Cl (D5w/1/2ns + Kcl 20 Meq Inj) 1,000 mls @ 70 mls/hr IV.CONT .[id number] CADEN Lactulose (Lactulose Liq) 30 ml PO DAILY PRN PRN Reason: SEVERE CONSITIPATION Senna/Docusate Sodium ([place]-Colace) 1 tab PO BID CADEN Sennosides (Senokot) 17.2 mg PO Q12H PRN PRN Reason: Moderate Constipation Sodium Chloride (Ns Flush) 2 ml IV.FLUSH PRN PRN PRN Reason: FLUSH AFTER USING IV ACCESS Allergies Allergy/AdvReac Type Severity Reaction Status Date / Time No Known Allergies Allergy Verified 05/18/18 14:14 Home Medications Medication Instructions Recorded Confirmed Type bisacodyl [Dulcolax (bisacodyl)] 10 mg OH DAILY PRN 05/18/18 05/18/18 History insulin lispro [Humalog U-100 1 sliding scale dose SUB-Q UD 05/18/18 05/18/18 History Insulin] Exam Vital signs: Vital Signs 05/18/18 14:11 05/18/18 14:40 05/18/18 15:11 Temperature 97.9 F Pulse Rate 90 98 H Respiratory Rate 20 18 Blood Pressure 183/81 H 175/86 H Pulse Oximetry 99 98 98 05/18/18 15:19 Temperature Pulse Rate 96 H Respiratory Rate 18 Blood Pressure 163/77 H Pulse Oximetry 96 Intake & Output 05/17/18 05/18/18 05/18/18 18:59 06:59 18:59 Intake Total 500 / 500 Output Total 250 / 250 Balance 250 / 250 Weight 68.039 kg Intake: IV 500 / 500 NS Inj 500 ML @ Wide Open IV. 500 / 500 SIG BOLUS ONE Rx#:[id number] Output: Urine Amount (Catheter) 250 / 250 Straight 250 / 250 Narrative: GENERAL: Well-nourished, well-developed elderly female patient in [facility]. SKIN: Warm and dry. No rash. HEAD: Normocephalic. Atraumatic. EYES: Pupils equal and round. No scleral icterus. No injection or drainage. ENT: No nasal bleeding or discharge. Mucous membranes pink and moist. NECK: Supple. Trachea midline. CARDIOVASCULAR: Regular rate and rhythm. No murmur appreciated. RESPIRATORY: No accessory muscle use. Clear to auscultation. Breath sounds equal bilaterally. GASTROINTESTINAL: Abdomen soft, non-tender, nondistended. Normoactive bowel sounds x4. MUSCULOSKELETAL: No obvious deformities. Extremities without clubbing, cyanosis , or edema. NEUROLOGICAL: Awake and alert. No obvious cranial nerve deficits. Motor grossly within normal limits. 1/5 strength RUE, 2/5 strength RLE, 4/5 strength LUE/LLE. Slurred speech. Expressive aphasia. Right sided facial droop. PSYCHIATRIC: Calm mood; insight and judgment poor. Results - Labs CBC & Chem 7: 05/18/18 15:00 05/18/18 15:00 Labs: Laboratory Results - last 24 hr 05/18/18 05/18/18 05/18/18 15:00 15:00 15:00 WBC 15.4 H RBC 4.45 Hgb 12.0 Hct 35.7 MCV 80.1 MCH 26.8 L MCHC 33.5 RDW 14.4 Plt Count 300 MPV 8.9 Neut % (Auto) 81.8 H Lymph % (Auto) 10.9 [place] % (Auto) 6.1 Eos % (Auto) 0.9 Baso % (Auto) 0.3 Neut # (Auto) 12.6 H Lymph # (Auto) 1.7 [place] # (Auto) 0.9 Eos # (Auto) 0.1 Baso # (Auto) 0.0 WBC Differential . Differential Comment Auto diff final PT 10.9 INR 1.1 APTT 25.7 Sodium 143 Potassium 3.2 L Chloride 105 Carbon Dioxide 25.9 Anion Gap 12 BUN 28 H Creatinine 0.69 Estimated GFR Greater than 89 POC Glucose Random Glucose 153 H Calcium 9.7 Total Bilirubin 0.4 AST 28 ALT 35 Alkaline Phosphatase 81 Total Creatine Kinase 86 Total Protein 8.3 H Albumin 3.6 Urine Color Urine Clarity Urine pH Ur Specific [place] Urine Protein Urine Glucose (UA) Urine Ketones Urine Occult Blood Urine Nitrate Urine Bilirubin Urine Urobilinogen Ur Leukocyte Esterase Urine RBC Urine WBC Micro UA Comment Urine Culture Comments 05/18/18 05/18/18 15:17 15:30 WBC RBC Hgb Hct MCV MCH MCHC RDW Plt Count MPV Neut % (Auto) Lymph % (Auto) [place] % (Auto) Eos % (Auto) Baso % (Auto) Neut # (Auto) Lymph # (Auto) [place] # (Auto) Eos # (Auto) Baso # (Auto) WBC Differential Differential Comment PT INR APTT Sodium Potassium Chloride Carbon Dioxide Anion Gap BUN Creatinine Estimated GFR POC Glucose 151 H Random Glucose Calcium Total Bilirubin AST ALT Alkaline Phosphatase Total Creatine Kinase Total Protein Albumin Urine Color Yellow Urine Clarity Hazy H Urine pH 6.0 Ur Specific [place] 1.024 Urine Protein 100 H Urine Glucose (UA) 50 Urine Ketones Trace H Urine Occult Blood Negative Urine Nitrate Negative Urine Bilirubin Negative Urine Urobilinogen 4 or greater Ur Leukocyte Esterase Negative Urine RBC 1 Urine WBC 1 Micro UA Comment Cath-culture not ind Urine Culture Comments Cath-cult not ind Caprini VTE Risk Assessment Caprini VTE Risk Assessment: Moderate/High Risk (score >= 2) Caprini Risk Assessment Model: Point Value = 1 Point Value = 2 Point Value = 3 Point Value = 5 Age 41-60 Minor surgery BMI > 25 kg/m2 Swollen legs Varicose veins or History of unexplained or recurrent spontaneous Oral contraceptives or hormone replacement Sepsis (< 1 month) Serious lung disease, including pneumonia (< 1 month) Abnormal pulmonary function Acute myocardial infarction Congestive heart failure (< 1 month) History of inflammatory bowel disease Medical patient at bed rest Age 61-74 Arthroscopic surgery Major open surgery (> 45 min) Laparoscopic surgery (> 45 min) Malignancy Confined to bed (> 72 hours) Immobilizing plaster cast Central venous access Age >= 75 History of VTE Family history of VTE Factor V Leiden Prothrombin [id number] Lupus anticoagulant Anticardiolipin antibodies Elevated serum homocysteine Heparin-induced thrombocytopenia Other congenital or acquired thrombophilia Stroke (< 1 month) Elective arthroplasty Hip, pelvis, or leg fracture Acute spinal cord injury (< 1 month) Prophylaxis Regimen: Total Risk Factor Score Risk Level Prophylaxis Regimen 0-1 Low Early ambulation 2 Moderate Order ONE of the following: *Sequential Compression Device (SCD) *Heparin 5000 units SQ BID 3-4 Higher Order ONE of the following medications: *Heparin 5000 units SQ TID *Enoxaparin/Lovenox 40 mg SQ daily (WT < 150 kg, CrCl > 30 mL/min) *Enoxaparin/Lovenox 30 mg SQ daily (WT < 150 kg, CrCl > 10-29 mL/min) *Enoxaparin/Lovenox 30 mg SQ BID (WT < 150 kg, CrCl > 30 mL/min) AND/OR *Sequential Compression Device (SCD) 5 or more Highest Order ONE of the following medications: *Heparin 5000 units SQ TID (Preferred with Epidurals) *Enoxaparin/Lovenox 40 mg SQ daily (WT < 150 kg, CrCl > 30 mL/min) *Enoxaparin/Lovenox 30 mg SQ daily (WT < 150 kg, CrCl > 10-29 mL/min) *Enoxaparin/Lovenox 30 mg SQ BID (WT < 150 kg, CrCl > 30 mL/min) AND *Sequential Compression Device (SCD) Assessment and Plan - Plan 88-year-old female with history of Alzheimer's dementia, diabetes, hypothyroidism, recurrent UTIs, hypertension, chronic constipation, and recent admission 05/07-05/12 for 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 Failure to Thrive: suspect secondary to recent CVA and hospitalization in combination with dementia and chronic deconditioning. -UA reviewed and unremarkable -Consult PT/OT/ST -Consult palliative care Dysphagia: acute on chronic. Secondary to recent stroke. -Consult ST for swallow eval -Keep NPO for now -Give IVF hydration -Consider GI consult for EGD as patient's sister reports noticing odynophagia -Podiatrist Orthopedic consulted Recent CVA: with residual right facial droop, slurred speech, aphasia, and right sided weakness. -continue medications including plavix, statin -continue rehab efforts Diabetes Mellitus: chronic -hold patient's metformin -Monitor accu-checks and cover with SSI Hypertension: chronic -continue patient's norvasc -monitor BP, adjust antihypertensives as needed Dementia: chronic -continue patient's Namenda Hypothyroidism: chronic -continue patient's synthroid -check TSH and T4 Chronic Constipation: last reported small BM on 05/17 -continue patient's dulcolax suppository daily -constipation protocol meds prn DVT Prophylaxis: lovenox sq Code Status: Full Code for now; patient's sister unaware of any DNR and believes her would want full code. Discussed Condition With: Patient, Patient's Sister Lisa Rodriguez
[2018-05-18] MEDS: KCL 20 mEq/D5W/NaCl 0.45% Inj 1,000 ML IV.CONT SCH (19:02)
[2018-05-18] MEDS: Senna/Docusate Sodium 8.6/50 MG Tablet PO SCH (20:37)
[2018-05-18] MEDS: Enoxaparin Inj 40 MG/0.4 ML Syringe SQ SCH (20:42)
[2018-05-18] MEDS: Insulin NovoLOG Aspart Correctional Sugar Inj SQ SCH (21:26)
[2018-05-19] MEDS: Sod Chloride 0.9% Inj 1,000 ML IV.CONT SCH ×2 (00:28→08:10)
[2018-05-19] MEDS: Levothyroxine 50 MCG Tablet PO SCH (06:39)
[2018-05-19] MEDS: Insulin NovoLOG Aspart Correctional Sugar Inj SQ SCH ×4 (07:43→20:33)
--- NOTE | 2018-05-19 08:55 | P.PN ---
Subjective Interval history: Follow-up for dysphagia, fatigue, failure to thrive. The patient is seen with her at bedside. He reports some mild improvement in her mentation today , however still drowsy and fatigued. He states that she has been having a lot of trouble swallowing her food, and has noticed the patient grimace with swallowing. The patient herself is unable to provide any reliable history. Physical Exam Vital signs: Vital Signs 05/18/18 14:11 05/18/18 14:40 05/18/18 15:11 Temperature 97.9 F Pulse Rate 90 98 H Respiratory Rate 20 18 Blood Pressure 183/81 H 175/86 H Pulse Oximetry 99 98 98 05/18/18 15:19 05/18/18 19:21 05/18/18 19:23 Temperature Pulse Rate 96 H 98 H Respiratory Rate 18 17 Blood Pressure 163/77 H 178/85 H Pulse Oximetry 96 98 96 05/18/18 20:00 05/18/18 23:22 05/19/18 00:00 Temperature 98.3 F 100 F H 99.6 F Pulse Rate 103 H 109 H Respiratory Rate 15 20 Blood Pressure 193/95 H 188/93 H Pulse Oximetry 96 05/19/18 04:00 05/19/18 08:00 05/19/18 08:31 Temperature 99.6 F 98.9 F Pulse Rate 92 H 83 92 H Respiratory Rate 15 17 Blood Pressure 181/84 H 174/79 H Pulse Oximetry 96 97 Intake & Output 05/18/18 05/19/18 05/19/18 18:59 06:59 18:59 Intake Total 500 / 500 300 / 300 700 / 700 Output Total 250 / 250 Balance 250 / 250 300 / 300 700 / 700 Weight 68.039 kg Intake: IV 500 / 500 300 / 300 700 / 700 NS Inj 1,000 ML @ 125 mls/hr IV 300 / 300 700 / 700 .CONT .Q8H CADEN Rx#:[id number] NS Inj 500 ML @ Wide Open IV. 500 / 500 SIG BOLUS ONE Rx#:[id number] Output: Urine Amount (Catheter) 250 / 250 Straight 250 / 250 Narrative: GENERAL: Well-nourished, well-developed elderly female patient in [facility]. SKIN: Warm and dry. No rash. HEAD: Normocephalic. Atraumatic. EYES: Pupils equal and round. No scleral icterus. No injection or drainage. ENT: No nasal bleeding or discharge. Mucous membranes pink and moist. Buccal mucosa with right patchy exudate. CARDIOVASCULAR: Regular rate and rhythm. No murmur appreciated. RESPIRATORY: No accessory muscle use. Clear to auscultation. Breath sounds equal bilaterally. GASTROINTESTINAL: Abdomen soft, non-tender, nondistended. Normoactive bowel sounds x4. MUSCULOSKELETAL: No obvious deformities. Extremities without clubbing, cyanosis , or edema. NEUROLOGICAL: Awake and alert. No obvious cranial nerve deficits. Motor grossly within normal limits. 1/5 strength RUE, 2/5 strength RLE, 4/5 strength LUE/LLE. Slurred speech. Expressive aphasia. Right sided facial droop. PSYCHIATRIC: Calm mood; insight and judgment poor. - Urinary Catheter Management Straight Cath placed during this visit: no Results - Labs CBC & Chem 7: 05/18/18 15:00 05/18/18 15:00 Laboratory Results - last 24 hr 05/18/18 05/18/18 05/18/18 15:00 15:00 15:00 WBC 15.4 H RBC 4.45 Hgb 12.0 Hct 35.7 MCV 80.1 MCH 26.8 L MCHC 33.5 RDW 14.4 Plt Count 300 MPV 8.9 Neut % (Auto) 81.8 H Lymph % (Auto) 10.9 [place] % (Auto) 6.1 Eos % (Auto) 0.9 Baso % (Auto) 0.3 Neut # (Auto) 12.6 H Lymph # (Auto) 1.7 [place] # (Auto) 0.9 Eos # (Auto) 0.1 Baso # (Auto) 0.0 WBC Differential . Differential Comment Auto diff final PT 10.9 INR 1.1 APTT 25.7 Sodium 143 Potassium 3.2 L Chloride 105 Carbon Dioxide 25.9 Anion Gap 12 BUN 28 H Creatinine 0.69 Estimated GFR Greater than 89 POC Glucose Random Glucose 153 H Calcium 9.7 Total Bilirubin 0.4 AST 28 ALT 35 Alkaline Phosphatase 81 Total Creatine Kinase 86 Total Protein 8.3 H Albumin 3.6 Urine Color Urine Clarity Urine pH Ur Specific [place] Urine Protein Urine Glucose (UA) Urine Ketones Urine Occult Blood Urine Nitrate Urine Bilirubin Urine Urobilinogen Ur Leukocyte Esterase Urine RBC Urine WBC Micro UA Comment Urine Culture Comments 05/18/18 05/18/18 05/19/18 15:17 15:30 07:40 WBC RBC Hgb Hct MCV MCH MCHC RDW Plt Count MPV Neut % (Auto) Lymph % (Auto) [place] % (Auto) Eos % (Auto) Baso % (Auto) Neut # (Auto) Lymph # (Auto) [place] # (Auto) Eos # (Auto) Baso # (Auto) WBC Differential Differential Comment PT INR APTT Sodium Potassium Chloride Carbon Dioxide Anion Gap BUN Creatinine Estimated GFR POC Glucose 151 H 180 H Random Glucose Calcium Total Bilirubin AST ALT Alkaline Phosphatase Total Creatine Kinase Total Protein Albumin Urine Color Yellow Urine Clarity Hazy H Urine pH 6.0 Ur Specific [place] 1.024 Urine Protein 100 H Urine Glucose (UA) 50 Urine Ketones Trace H Urine Occult Blood Negative Urine Nitrate Negative Urine Bilirubin Negative Urine Urobilinogen 4 or greater Ur Leukocyte Esterase Negative Urine RBC 1 Urine WBC 1 Micro UA Comment Cath-culture not ind Urine Culture Comments Cath-cult not ind Assessment and Plan - Plan 88-year-old female with history of Alzheimer's dementia, diabetes, hypothyroidism, recurrent UTIs, hypertension, chronic constipation, and recent admission 05/07-05/12 for 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 Failure to Thrive: suspect secondary to recent CVA and hospitalization in combination with dementia and chronic deconditioning. -UA reviewed and unremarkable -Consult PT/OT/ST -Consult palliative care, appreciate recommendations Dysphagia: acute on chronic. Secondary to recent stroke. -Consult ST for swallow eval, patient failed swallow, will need to stay NPO -Give IVF hydration with D5 1/2 NS w/KCl -Patient with oral candidiasis, concern for esophagitis, will consult GI for further evaluation -Plasma Processing Centrifuge Operator consulted Oropharyngeal Candidiasis: concern for esophagitis. -unable to start po Nystatin due to NPO status -start IV Diflucan 100mg qd -consult GI for EGD Recent CVA: with residual right facial droop, slurred speech, aphasia, and right sided weakness. -holding patient's plavix/statin while NPO, given lovenox -continue rehab efforts Diabetes Mellitus: chronic -hold patient's metformin -Monitor accu-checks and cover with SSI Hypertension: acute on chronic, BP elevated likely secondary to not receiving po meds while NPO -norvasc on hold while NPO -continue IV Vasotec prn -monitor BP, adjust antihypertensives as needed Dementia: chronic -patient's Namenda on hold while NPO Hypothyroidism: chronic -synthroid on hold while NPO -check TSH and T4 Chronic Constipation: last reported small BM on 05/17 -continue patient's dulcolax suppository daily -constipation protocol meds prn DVT Prophylaxis: lovenox sq Discharge Planning: Await evaluation by GI and palliative care.
--- NOTE | 2018-05-19 09:52 | P.CONPAL ---
Consult Service: Palliative Care Requesting Physician: Lili De La Cruz Reason for Consult: a. To assist with evaluation and management of symptoms including: Dysphagia, debility b. To assist medical decision maker(s) with: better understanding of current medical conditions; weighing benefits/burdens of medical treatment options; making medical treatment decisions. Primary Care Provider: Otis Huston MD History of Present Illness History of Present Illness: Mrs. Tristan is a 88-year-old patient with a past medical history significant for stroke with right sided deficits, multiple TIAs, hypertension, heart murmur , hypothyroidism, dementia, diabetes mellitus type 2, depression, anxiety and urinary tract infection. Patient presented to the ER on 05/18/18 via EMS from a [facility] for further evaluation of dysphagia with failure to thrive. Patient was recently admitted in April of this year for a stroke and has had another stroke in 2006. Patient`s family reported that patient has had poor oral intake for the past 2 days prior to presenting to the ER. Family reported that patient was doing well after discharge from the hospital. She was able to tolerate pured diet with honey thickened fluids at that time. Family stated that patient`s diet was advanced to mechanical soft diet at the fci and due to patient holding food in her mouth and having difficulty with swallowing, diet had been changed back to pureed diet. ER course: * Vital signs: Temperature 97.9, pulse 90, respirations 20, blood pressure 183/ 81, O2 saturation 99% on room * Laboratory workup revealed WBC 15.4, hemoglobin 12.0, hematocrit 35.7, platelet count 300, PT 10.9, INR 1.1, sodium 143, potassium 3.2, BUN/creatinine 28/0.69, random glucose 153, total protein 8.3, albumin 3.6 * Urinalysis negative Chest x-ray today revealing cardiomegaly. No acute pulmonary disease. palliative care consulted to assist with symptom management and establishing goals of care. Speech therapy consulted and patient failed swallow evaluation. GI consulted for evaluation and management of dysphagia with possible placement of PEG tube. Patient seen and examined in her room in the emergency room. Present during visit is he has been on Alexis Tristan, sister Leigh Rodriguez and patient's niece. Introduced role of palliative care in regards to symptom management as well as goals of care. Obtained patient's past medical history, psychosocial history and events leading to this hospitalization. According to patient's patient never completed advanced directives when she was able to. Explained to patient's that according to [place] statute healthcare proxy would fall to him. Addressed CODE STATUS, discussed limitations and complications given ongoing multiple comorbidities. Patient's elected full code at this time. He would like to continue with aggressive treatment at this time and is agreeable to any intervention that can be done to keep patient alive. Family concerned with the patient's dysphagia is from progression of dementia or from a previous stroke. Discussed patient's comorbidities at length mostly complications associated with stroke as well as progression of dementia. Broached hospice topic, and patient's mentioned that if patient continues to decline or deteriorate that is something that he will consider in the future. Patient's would want to progress with PEG tube placement. According to patient's prior to patient having a stroke in May, she needed assistance with ambulation and has been patient's primary caregiver. Patient's intentions are to send patient back to rehab for a short time and then take her home. Patient's sister and niece expressed concern that the patient will probably need total care and patient's will not be able to provide that. After further explanation to the care patient will most likely require he then mentioned that patient may need to be in a long-term care facility. Function/Cognitive Trajectory: Patient lived at home with her until May, when she was admitted in the hospital for a stroke and then transferred to rehab for a week before coming back to the hospital this time. At home patient had difficulty with ambulation and required assistance from a . According to patient's she was only able to ambulate a few steps to the wheelchair or table with his assistance. She also had periods of incontinence though most of the times she was able to ask to use the toilet. According to patient's , patient has not been out of bed to ambulate at the fci for 1 week and he has required feeding. According to family patient can verbalize his needs at times and sometimes he needs have to be made. Review of Systems ROS obtained from EMR, family and clinical observation. Constitutional: Reports fatigue, Reports weight loss Eyes: Denies bulging eyes Ears, Nose, Mouth, and Throat: Reports difficulty swallowing, Reports pain with swallowing, Denies mouth lesions, Denies nasal congestion, Denies tongue swelling Cardiovascular: Denies foot swelling, Denies shortness of breath Respiratory: Denies chest congestion, Denies coughing up blood, Denies shortness of breath Gastrointestinal: Reports constipation, Reports difficulty swallowing, Denies abdominal pain, Denies nausea, Denies vomiting Genitourinary: Reports urinary incontinence Musculoskeletal: Reports abnormal walking Skin/Breast: Denies redness, Denies sores Neurologic: Reports abnormal speech (slurred speech at times per family), Reports localized weakness (right upper extremity) Psychiatric: Reports confusion Endocrine: Denies excessive sweating Hematologic/Lymphatic: Reports easy bruising PMFSH - History History Provided By: Family Member, Medical Record - Medical History Medical History: Medical History (Last Updated 05/19/18 @ 10:13 by Mauricio Breen) Anxiety Cerebral infarct Constipation Dementia Depression Diabetes Hyperlipidemia Hypertension Hypothyroidism TIA (transient ischemic attack) Fracture of olecranon process, right, closed (Resolved) - Surgical History Surgical History: Surgical History (Last Updated 05/19/18 @ 09:47 by Mauricio Breen) H/O: hysterectomy (Resolved) - Family History Family History: Family History (Last Updated 05/19/18 @ 10:19 by Mauricio Breen) Mother Breast cancer - Tobacco History Second Hand Smoke Exposure: No Smoking Status: Never smoker - Alcohol History How Often Do You Have a Drink Containing Alcohol: Never - Substance Use History Substance History: No History of Abuse - Travel History Recent Travel in the [place] Within the Last 8 Weeks: No Recent Travel Out of the Country Within the Last 8 Weeks: No - Immunization History Tetanus Immunization: Unsure Hx Influenza Vaccine This Season: Unable to Assess Medications and Allergies Active Medications: Active Medications Acetaminophen (Tylenol) 650 mg PO Q4H PRN PRN Reason: headache/fever/pain1-5 Al Hydroxide/Mg Hydroxide (Milk Of Magnesia Liq) 30 ml PO Q12H PRN PRN Reason: Mild Constipation Amlodipine Besylate (Norvasc) 10 mg PO DAILY [facility] Atorvastatin Calcium (Lipitor) 20 mg PO HS [facility] Last Admin: 05/18/18 21:25 Dose: Not Given Bisacodyl (Dulcolax Supp) 10 mg RECTAL DAILY PRN PRN Reason: SEVERE CONSITIPATION Clopidogrel Bisulfate (Plavix) 75 mg PO DAILY [facility] Dextrose (D50w Vial) 50 ml IV.PUSH UNSCH PRN PRN Reason: PER HYPOGLYCEMIA PROTOCOL Enalaprilat (Vasotec Inj) 1.25 mg IV.PUSH Q6H PRN PRN Reason: HYPERTENSION Last Admin: 05/18/18 21:44 Dose: 1.25 mg Enoxaparin Sodium (Lovenox Inj) 40 mg SQ HS [facility] Last Admin: 05/18/18 20:42 Dose: 40 mg Glucagon (Glucagon Inj) 1 mg OTHER PRN PRN PRN Reason: for Hypoglycemia Protocol Sodium Chloride (Ns Inj) 1,000 mls @ 125 mls/hr IV.CONT .Q8H [facility] Last Admin: 05/19/18 08:10 Dose: 125 mls/hr Potassium Chloride/Dextrose/Sod Cl (D5w/1/2ns + Kcl 20 Meq Inj) 1,000 mls @ 70 mls/hr IV.CONT .[id number] [facility] Last Infusion: 05/19/18 00:29 Dose: 70 mls/hr Insulin Aspart (Novolog Insulin Suppl Scale Inj) 0 unit SQ [facility]; Protocol Last Admin: 05/19/18 07:43 Dose: Not Given Lactulose (Lactulose Liq) 30 ml PO DAILY PRN PRN Reason: SEVERE CONSITIPATION Levothyroxine Sodium (Synthroid) 50 mcg PO DAILY@0600 [facility] Last Admin: 05/19/18 06:39 Dose: Not Given Memantine (Namenda) 10 mg PO BID [facility] Last Admin: 05/18/18 21:25 Dose: Not Given Senna/Docusate Sodium (Kelsea-Colace) 1 tab PO BID [facility] Last Admin: 05/18/18 20:37 Dose: Not Given Sennosides (Senokot) 17.2 mg PO Q12H PRN PRN Reason: Moderate Constipation Sodium Chloride (Ns Flush) 2 ml IV.FLUSH PRN PRN PRN Reason: FLUSH AFTER USING IV ACCESS Allergies Allergy/AdvReac Type Severity Reaction Status Date / Time No Known Allergies Allergy Verified 05/18/18 14:14 Home Medications Medication Instructions Recorded Confirmed Type bisacodyl [Dulcolax (bisacodyl)] 10 mg NM DAILY PRN 05/18/18 05/18/18 History insulin lispro [Humalog U-100 1 sliding scale dose SUB-Q UD 05/18/18 05/18/18 History Insulin] Advance Directives Living Will: No Healthcare Surrogate: No Health Care Surrogate Name and Number: HCP: Alexis Tristan [phone] Power of Energy Specialist: No Family/friends goals: Patient's would want to proceed with aggressive treatment including PEG tube placement. Ethical and Legal Issues: None identified at this time. Physical Exam Vital Signs: Vital Signs - 24 hr 05/18/18 14:11 05/18/18 14:40 05/18/18 15:11 Temperature 97.9 F Pulse Rate 90 98 H Respiratory Rate 20 18 Blood Pressure 183/81 H 175/86 H Pulse Oximetry 99 98 98 05/18/18 15:19 05/18/18 19:21 05/18/18 19:23 Temperature Pulse Rate 96 H 98 H Respiratory Rate 18 17 Blood Pressure 163/77 H 178/85 H Pulse Oximetry 96 98 96 05/18/18 20:00 05/18/18 23:22 05/19/18 00:00 Temperature 98.3 F 100 F H 99.6 F Pulse Rate 103 H 109 H Respiratory Rate 15 20 Blood Pressure 193/95 H 188/93 H Pulse Oximetry 96 05/19/18 04:00 05/19/18 08:00 05/19/18 08:31 Temperature 99.6 F 98.9 F Pulse Rate 92 H 83 92 H Respiratory Rate 15 17 Blood Pressure 181/84 H 174/79 H Pulse Oximetry 96 97 I&O: Intake & Output 05/17/18 05/18/18 05/19/18 05/20/18 06:59 06:59 06:59 06:59 Intake Total 800 / 800 700 / 700 Output Total 250 / 250 Balance 550 / 550 700 / 700 Weight 68.039 kg Physical Exam: CONSTITUTIONAL/GENERAL: This is an elderly patient, lethargic in no apparent distress. TUBES/LINES/DRAINS: PIV SKIN: No jaundice, rashes, or lesions. Ecchymoses on upper extremities. Normothermic HEAD: Atraumatic. Normocephalic. EYES: Pupils equal and round and reactive. Extraocular motions intact. No scleral icterus. No injection or drainage. Fundi not examined. ENT: Hearing grossly normal. No nasal bleeding or drainage. Moist oral mucosa NECK: Trachea midline. Supple, nontender. CARDIOVASCULAR: Regular rate and rhythm with a murmurs, gallops, or rubs. No JVD. Peripheral pulses symmetric. RESPIRATORY/CHEST: Symmetric, unlabored respirations. Clear to auscultation. Diminished in the bases. No wheezes, rales, or rhonchi. GASTROINTESTINAL: Abdomen soft, non-tender, nondistended. No guarding. Bowel sounds present. GENITOURINARY: Without palpable bladder distension. MUSCULOSKELETAL: Extremities without clubbing, cyanosis, or edema. No joint tenderness or effusion noted. No calf tenderness. No mottling or clubbing. NEUROLOGICAL: Awake, lethargic, nonverbal during visit. Patient not following simple commands. Slight withdrawal noted to bilateral lower extremities. PSYCHIATRIC: Calm. Diagnostic Tests Laboratory: Laboratory Results - last 72 hr 05/18/18 05/18/18 05/18/18 15:00 15:00 15:00 WBC 15.4 H RBC 4.45 Hgb 12.0 Hct 35.7 MCV 80.1 MCH 26.8 L MCHC 33.5 RDW 14.4 Plt Count 300 MPV 8.9 Neut % (Auto) 81.8 H Lymph % (Auto) 10.9 [place] % (Auto) 6.1 Eos % (Auto) 0.9 Baso % (Auto) 0.3 Neut # (Auto) 12.6 H Lymph # (Auto) 1.7 [place] # (Auto) 0.9 Eos # (Auto) 0.1 Baso # (Auto) 0.0 WBC Differential . Differential Comment Auto diff final PT 10.9 INR 1.1 APTT 25.7 Sodium 143 Potassium 3.2 L Chloride 105 Carbon Dioxide 25.9 Anion Gap 12 BUN 28 H Creatinine 0.69 Estimated GFR Greater than 89 POC Glucose Random Glucose 153 H Calcium 9.7 Total Bilirubin 0.4 AST 28 ALT 35 Alkaline Phosphatase 81 Total Creatine Kinase 86 Total Protein 8.3 H Albumin 3.6 Urine Color Urine Clarity Urine pH Ur Specific [place] Urine Protein Urine Glucose (UA) Urine Ketones Urine Occult Blood Urine Nitrate Urine Bilirubin Urine Urobilinogen Ur Leukocyte Esterase Urine RBC Urine WBC Micro UA Comment Urine Culture Comments 05/18/18 05/18/18 05/19/18 15:17 15:30 07:40 WBC RBC Hgb Hct MCV MCH MCHC RDW Plt Count MPV Neut % (Auto) Lymph % (Auto) [place] % (Auto) Eos % (Auto) Baso % (Auto) Neut # (Auto) Lymph # (Auto) [place] # (Auto) Eos # (Auto) Baso # (Auto) WBC Differential Differential Comment PT INR APTT Sodium Potassium Chloride Carbon Dioxide Anion Gap BUN Creatinine Estimated GFR POC Glucose 151 H 180 H Random Glucose Calcium Total Bilirubin AST ALT Alkaline Phosphatase Total Creatine Kinase Total Protein Albumin Urine Color Yellow Urine Clarity Hazy H Urine pH 6.0 Ur Specific [place] 1.024 Urine Protein 100 H Urine Glucose (UA) 50 Urine Ketones Trace H Urine Occult Blood Negative Urine Nitrate Negative Urine Bilirubin Negative Urine Urobilinogen 4 or greater Ur Leukocyte Esterase Negative Urine RBC 1 Urine WBC 1 Micro UA Comment Cath-culture not ind Urine Culture Comments Cath-cult not ind Result Diagrams: 05/18/18 15:00 05/19/18 15:28 Imaging: Chest X-Ray 05/19/18 00:00 CONCLUSION: Cardiomegaly. No acute pulmonary disease. Patient/Family Conference Family Conference Location: Bedside Issues Discussed: * Palliative care role, purpose, approach * Additional medical, psychosocial, and spiritual history * Patients general health, functional status, and cognitive changes in the months leading up to the current hospitalization * Patient/family understanding of the current medical problems * Patient/family understanding of prognosis * Patients goals of care as best understood from advance directives and/or conversations and/or values * Current medical treatment options and benefits/burdens of those options * Likely scenarios comparing ongoing aggressive care with a transition to comfort measures only * Questions answered to the best of my ability * Introduced hospice philosophy and benefits * Palliative care contact information provided Assessment and Plan - Disease Oriented Problem List (1) CVA (cerebral vascular accident) (2) Adult failure to thrive (3) Dysphagia (4) History of CVA (cerebrovascular accident) (5) Dementia (6) Hypothyroidism (7) DM2 (diabetes mellitus, type 2) (8) Hypothyroidism (9) HTN (hypertension) - Symptom Scale (1) Decreased oral intake 0-10 Scale: Unable to quantify (Came in with complaints of dysphagia decreased oral intake) (2) Debility 0-10 Scale: Unable to quantify (Progressive) Pertinent Non-Medical Issues: Psychosocial: Patient was born in [place], [place] and raised in [place]. 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 Patient also served in the [employer]. Patient has been once to a Alexis of 50 years. Patient had a stepson who is now . Spiritual:Patient is Roman Catholic Legal: Never completed advanced directive Ethical issues impacting care: None identified at this time Important Contacts: Spouse- Alexis Tristan Jr- [phone] Prognosis: Mrs. Tristan is a 88-year-old patient with a past medical history significant for stroke with right sided deficits, multiple TIAs, hypertension, heart murmur , hypothyroidism, dementia, diabetes mellitus type 2, depression, anxiety and urinary tract infection. Patient presented to the ER on 05/18/18 via EMS from a [facility]ci for further evaluation of dysphagia with failure to thrive. Given ongoing multiple comorbidities, patient remains at risk for further complications, deterioration and decline. Code Status: Full Code Plan: PLAN: Legal decision maker: Patient has a history of dementia and is not able to participate in medical decision making. According to [place] statute, he Alexis Tristan who would serve as her healthcare proxy. Goals: Aggressive. Patient's would want to progress with PEG tube placement CODE STATUS: Full code Patient seen and examined in her room in the emergency room. Present during visit is he has been on Alexis Tristan, sister Leigh Rodriguez and patient's niece. Introduced role of palliative care in regards to symptom management as well as goals of care. Obtained patient's past medical history, psychosocial history and events leading to this hospitalization. According to patient's patient never completed advanced directives when she was able to. Explained to patient's that according to [place] statute healthcare proxy would fall to him. Addressed CODE STATUS, discussed limitations and complications given ongoing multiple comorbidities. Patient's elected full code at this time. He would like to continue with aggressive treatment at this time and is agreeable to any intervention that can be done to keep patient alive. Family concerned with the patient's dysphagia is from progression of dementia or from a previous stroke. Discussed patient's comorbidities at length mostly complications associated with stroke as well as progression of dementia. Broached hospice topic, and patient's mentioned that if patient continues to decline or deteriorate that is something that he will consider in the future. Patient's would want to progress with PEG tube placement. SYMPTOMS: * Dysphagia: Patient has a history of stroke and multiple TIAs in the past with the most recent stroke in May, which left her with right-sided hemiparesis. Patient was discharged to a SNF on pured diet. She came in with complaints of dysphagia, pocketing food. Patient failed swallow eval. GI consulted and family are agreeable with proceeding with placement of PEG tube. Currently n.p.o. * Debility: Progressive. Patient has a history of stroke with residual right- sided weakness. Prior to recent stroke patient only ambulated short distances with assistance and mostly used a wheelchair. Speech therapy, Occupational Therapy and physical therapy consulted. PT recommended PT at rehab. Unsure if patient will be able to participate effectively in physical therapy given his cognitive and physical limitations. Palliative care will continue to follow the patient during hospital course as condition evolves, to assist patient/decision-maker with understanding of their medical conditions, weighing benefits/burdens of treatment options, for clarification of goals of treatment. Additionally will assist with any symptoms of palliative concern Appreciation Thank you for the opportunity to participate in the care of Leilani Tristan. Attestation Attestation: To help prompt me to consider important information that might be impacting today's encounter and assessment, information from prior notes written by myself or my colleagues may have been "brought forward" into today's note. My signature on this note, however, is an attestation that I personally performed the exam, history, and/or decision-making noted today, and, unless otherwise indicated, the interactions with patient, family, and staff as well as the review of records all occurred today. I also attest that the listed assessment and stated plan reflect my best clinical judgment today based on the combination of historical information, prior notes, and today's exam/ interactions. When time spent is documented, it refers only to time spent today by the signer, or if indicated, combined time spent today by collaborating physician/nurse practitioner.
[2018-05-19] MEDS: Senna/Docusate Sodium 8.6/50 MG Tablet PO SCH ×2 (10:34→20:30)
[2018-05-19] MEDS: amLODIPine 10 MG Tablet PO SCH (10:34)
[2018-05-19] MEDS: KCL 20 mEq/D5W/NaCl 0.45% Inj 1,000 ML IV.CONT SCH (11:17)
--- NOTE | 2018-05-19 13:18 | ECG ---
Date Performed: 05/18/2018 Time Performed: 16:25:09 PTAGE: 88 years EKG: Sinus rhythm WITH FREQUENT SUPRAVENTRICULAR PREMATURE COMPLEXES BORDERLINE LEFT AXIS DEVIATION NONSPECIFIC ST & T -WAVE ABNORMALITY ABNORMAL RHYTHM ECG Since the PREVIOUS TRACING , no significant change noted PREVIOUS TRACIN05/07/2018 09.39 DOCTOR: Cipriano Bridges Interpretating Date/Time 05/19/2018 13:15:34
--- NOTE | 2018-05-19 14:32 | XR ---
EXAM DATE: 05/19/2018 2:23 PM EDT AGE/SEX: 88 years / Female INDICATIONS: Cough. CLINICAL DATA: This is the patient's initial encounter. Patient reports that signs and symptoms have been present for 1 day and indicates a pain score of 0/10. MEDICAL/SURGICAL HISTORY: Diabetes mellitus type II. Hypertension. Hysterectomy. COMPARISON: [facility] [place], CHEST SINGLE AP, 05/07/2018. . FINDINGS: The cardiac silhouette is enlarged in transverse diameter. The lungs are free of acute parenchymal op acity. No effusions are identified. CONCLUSION: Cardiomegaly. No acute pulmonary disease. Electronically signed by: Mulugeta Palacios MD 05/19/2018 2:31 PM EDT
--- NOTE | 2018-05-19 14:41 | P.CONGI ---
History of Present Illness Consult date: 05/19/18 Consult reason: Dysphagia Chief complaint: DYSPHAGIA;DEHYDRATION;RECENT CVA;FAIL TO THRIVE History of Present Illness: This is a 88 yo F with PMH significant for dementia who suffered from recent CVA and was discharged to a rehab facility. Pt does not participate in history taking, therefore all history has been obtained through chart review and discussion with patient's sister at bedside and pts Alexis on the phone. Per pts sister pt has not been swallowing any food since Wednesday. She reports that when pt was recently discharged from the hospital she was advised to be on a pureed diet, according to her the PR advanced pt to a mechanical soft diet and the pt was having issues with this. She request the diet be back to mechanical soft, however pt was still holding the food in her mouth and not swallowing. She is unsure if the pt has had any vomiting or if she was just spitting out retained food in her mouth. Pt in no apparent distress during my exam. Unsure if she has had a previous EGD or colonoscopy. Discussed with pts Alexis on the phone, he states he would like to proceed with aggressive care including PEG tube placement. <Georgina Goyal - Last Filed: 05/19/18 14:30> Review of Systems unobtainable due to mental status <Georgina Goyal - Last Filed: 05/19/18 14:30> [facility] - History History Provided By: Patient, Family Member - Medical History Medical History: Medical History (Last Updated 05/19/18 @ 10:13 by Mauricio Breen) Anxiety Cerebral infarct Constipation Dementia Depression Diabetes Hyperlipidemia Hypertension Hypothyroidism TIA (transient ischemic attack) Fracture of olecranon process, right, closed (Resolved) - Surgical History Surgical History: Surgical History (Last Updated 05/19/18 @ 09:47 by Mauricio Breen) H/O: hysterectomy (Resolved) - Family History Family History: Family History (Last Updated 05/19/18 @ 10:19 by Mauricio Breen) Mother Breast cancer - Tobacco History Second Hand Smoke Exposure: No Smoking Status: Never smoker - Alcohol History How Often Do You Have a Drink Containing Alcohol: Never - Substance Use History Substance History: No History of Abuse - Travel History Recent Travel in the [place] Within the Last 8 Weeks: No Recent Travel Out of the Country Within the Last 8 Weeks: No - Immunization History Tetanus Immunization: Unsure Hx Influenza Vaccine This Season: Unable to Assess <Georgina Goyal - Last Filed: 05/19/18 14:30> - Medical History Medical History: Medical History (Last Updated 05/19/18 @ 10:13 by Mauricio Breen) Anxiety Cerebral infarct Constipation Dementia Depression Diabetes Hyperlipidemia Hypertension Hypothyroidism TIA (transient ischemic attack) Fracture of olecranon process, right, closed (Resolved) - Surgical History Surgical History: Surgical History (Last Updated 05/19/18 @ 09:47 by Mauricio Breen) H/O: hysterectomy (Resolved) - Family History Family History: Family History (Last Updated 05/19/18 @ 10:19 by Mauricio Breen) Mother Breast cancer <Radha Hendricks - Last Filed: 05/19/18 20:26> Medications and Allergies Active Medications: Active Medications Acetaminophen (Tylenol) 650 mg PO Q4H PRN PRN Reason: headache/fever/pain1-5 Al Hydroxide/Mg Hydroxide (Milk Of [place]acia [place]) 30 ml PO Q12H PRN PRN Reason: Mild Constipation Amlodipine Besylate (Norvasc) 10 mg PO DAILY REPLACED BY [facility] Last Admin: 05/19/18 10:34 Dose: Not Given Atorvastatin Calcium (Lipitor) 20 mg PO HS REPLACED BY [facility] Last Admin: 05/18/18 21:25 Dose: Not Given Bisacodyl (Dulcolax Supp) 10 mg RECTAL DAILY PRN PRN Reason: SEVERE CONSITIPATION Clopidogrel Bisulfate (Plavix) 75 mg PO DAILY REPLACED BY [facility] Last Admin: 05/19/18 10:35 Dose: Not Given Dextrose (D50w Vial) 50 ml IV.PUSH UNSCH PRN PRN Reason: PER HYPOGLYCEMIA PROTOCOL Enalaprilat (Vasotec Inj) 1.25 mg IV.PUSH Q6H PRN PRN Reason: HYPERTENSION Last Admin: 05/18/18 21:44 Dose: 1.25 mg Enoxaparin Sodium (Lovenox Inj) 40 mg SQ HS REPLACED BY [facility] Last Admin: 05/18/18 20:42 Dose: 40 mg Glucagon (Glucagon Inj) 1 mg OTHER PRN PRN PRN Reason: for Hypoglycemia Protocol Potassium Chloride/Dextrose/Sod Cl (D5w/1/2ns + Kcl 20 Meq Inj) 1,000 mls @ 70 mls/hr IV.CONT .[id number] REPLACED BY [facility] Last Admin: 05/19/18 11:17 Dose: 70 mls/hr Fluconazole (Diflucan 100 Mg Premix Bag) 50 mls @ 50 mls/hr IV.SIG Q24H REPLACED BY [facility] Stop: 06/02/18 13:59 Insulin Aspart (Novolog Insulin Suppl Scale Inj) 0 unit SQ ACHS REPLACED BY [facility]; Protocol Last Admin: 05/19/18 13:03 Dose: 1 unit Lactulose (Lactulose Liq) 30 ml PO DAILY PRN PRN Reason: SEVERE CONSITIPATION Levothyroxine Sodium (Synthroid) 50 mcg PO DAILY@0600 REPLACED BY [facility] Last Admin: 05/19/18 06:39 Dose: Not Given Memantine (Namenda) 10 mg PO BID REPLACED BY [facility] Last Admin: 05/19/18 10:34 Dose: Not Given Senna/Docusate Sodium (Kelsea-Colace) 1 tab PO BID REPLACED BY [facility] Last Admin: 05/19/18 10:34 Dose: Not Given Sennosides (Senokot) 17.2 mg PO Q12H PRN PRN Reason: Moderate Constipation Sodium Chloride (Ns Flush) 2 ml IV.FLUSH PRN PRN PRN Reason: FLUSH AFTER USING IV ACCESS <Georgina Goyal - Last Filed: 05/19/18 14:30> Active Medications: Active Medications Acetaminophen (Tylenol) 650 mg PO Q4H PRN PRN Reason: headache/fever/pain1-5 Al Hydroxide/Mg Hydroxide (Milk Of Magnesia Liq) 30 ml PO Q12H PRN PRN Reason: Mild Constipation Amlodipine Besylate (Norvasc) 10 mg PO DAILY REPLACED BY [facility] Last Admin: 05/19/18 10:34 Dose: Not Given Atorvastatin Calcium (Lipitor) 20 mg PO HS REPLACED BY [facility] Last Admin: 05/18/18 21:25 Dose: Not Given Bisacodyl (Dulcolax Supp) 10 mg RECTAL DAILY PRN PRN Reason: SEVERE CONSITIPATION Clopidogrel Bisulfate (Plavix) 75 mg PO DAILY REPLACED BY [facility] Last Admin: 05/19/18 10:35 Dose: Not Given Dextrose (D50w Vial) 50 ml IV.PUSH UNSCH PRN PRN Reason: PER HYPOGLYCEMIA PROTOCOL Enalaprilat (Vasotec Inj) 1.25 mg IV.PUSH Q6H PRN PRN Reason: HYPERTENSION Last Admin: 05/18/18 21:44 Dose: 1.25 mg Enoxaparin Sodium (Lovenox Inj) 40 mg SQ HS REPLACED BY [facility] Last Admin: 05/18/18 20:42 Dose: 40 mg Glucagon (Glucagon Inj) 1 mg OTHER PRN PRN PRN Reason: for Hypoglycemia Protocol Potassium Chloride/Dextrose/Sod Cl (D5w/1/2ns + Kcl 20 Meq Inj) 1,000 mls @ 70 mls/hr IV.CONT .[id number] REPLACED BY [facility] Last Admin: 05/19/18 11:17 Dose: 70 mls/hr Fluconazole (Diflucan 100 Mg Premix Bag) 50 mls @ 50 mls/hr IV.SIG Q24H REPLACED BY [facility] Stop: 06/02/18 13:59 Last Infusion: 05/19/18 16:38 Dose: Infused Insulin Aspart (Novolog Insulin Suppl Scale Inj) 0 unit SQ ACHS REPLACED BY [facility]; Protocol Last Admin: 05/19/18 18:53 Dose: 1 unit Lactulose (Lactulose Liq) 30 ml PO DAILY PRN PRN Reason: SEVERE CONSITIPATION Levothyroxine Sodium (Synthroid) 50 mcg PO DAILY@0600 REPLACED BY [facility] Last Admin: 05/19/18 06:39 Dose: Not Given Memantine (Namenda) 10 mg PO BID REPLACED BY [facility] Last Admin: 05/19/18 10:34 Dose: Not Given Senna/Docusate Sodium (Kelsea-Colace) 1 tab PO BID REPLACED BY [facility] Last Admin: 05/19/18 10:34 Dose: Not Given Sennosides (Senokot) 17.2 mg PO Q12H PRN PRN Reason: Moderate Constipation Sodium Chloride (Ns Flush) 2 ml IV.FLUSH PRN PRN PRN Reason: FLUSH AFTER USING IV ACCESS <Radha Hendricks - Last Filed: 05/19/18 20:26> Allergies Allergy/AdvReac Type Severity Reaction Status Date / Time No Known Allergies Allergy Verified 05/18/18 14:14 Home Medications Medication Instructions Recorded Confirmed Type bisacodyl [Dulcolax (bisacodyl)] 10 mg NE DAILY PRN 05/18/18 05/18/18 History insulin lispro [Humalog U-100 1 sliding scale dose SUB-Q UD 05/18/18 05/18/18 History Insulin] Exam Vital signs: Vital Signs 05/18/18 14:40 05/18/18 15:11 05/18/18 15:19 Temperature Pulse Rate 98 H 96 H Respiratory Rate 18 18 Blood Pressure 175/86 H 163/77 H Pulse Oximetry 98 98 96 05/18/18 19:21 05/18/18 19:23 05/18/18 20:00 Temperature 98.3 F Pulse Rate 98 H 103 H Respiratory Rate 17 15 Blood Pressure 178/85 H 193/95 H Pulse Oximetry 98 96 96 05/18/18 23:22 05/19/18 00:00 05/19/18 04:00 Temperature 100 F H 99.6 F 99.6 F Pulse Rate 109 H 92 H Respiratory Rate 20 15 Blood Pressure 188/93 H 181/84 H Pulse Oximetry 96 05/19/18 08:00 05/19/18 08:31 05/19/18 09:00 Temperature 98.9 F Pulse Rate 83 92 H 79 Respiratory Rate 17 Blood Pressure 174/79 H Pulse Oximetry 97 05/19/18 12:00 Temperature 97.9 F Pulse Rate 94 H Respiratory Rate 18 Blood Pressure 175/84 H Pulse Oximetry 98 Intake & Output 05/18/18 05/19/18 05/19/18 18:59 06:59 18:59 Intake Total 500 / 500 300 / 300 1999 Output Total 250 / 250 Balance 250 / 250 300 / 300 1999 / 1999 Weight 68.039 kg Intake: IV 500 / 500 300 / 300 1999 / 1999 D5W/1/2NS + KCL 20 mEq Inj 1, 1000 / 1000 000 ML @ 70 mls/hr IV.CONT . [id number] REPLACED BY [facility] Rx#:[id number] NS Inj 1,000 ML @ 125 mls/hr IV 300 / 300 1000 / 1000 .CONT .Q8H REPLACED BY [facility] Rx#:[id number] NS Inj 500 ML @ Wide Open IV. 500 / 500 SIG BOLUS ONE Rx#:[id number] Output: Urine Amount (Catheter) 250 / 250 Straight 250 / 250 Other: Date of Last Bowel Movement 05/18/18 - Constitutional no acute distress - Routine HEENT Exam Head: Present: normocephalic, atraumatic - Routine Respiratory Exam Absent: accessory muscle use - Routine Abdominal Exam Present: soft, normoactive bowel sounds. Absent: tenderness, distended, rebound , guarding, firm - Routine Neurological Exam lethargic <Georgina Goyal - Last Filed: 05/19/18 14:30> Vital signs: Vital Signs 05/18/18 23:22 05/19/18 00:00 05/19/18 04:00 Temperature 100 F H 99.6 F 99.6 F Pulse Rate 109 H 92 H Respiratory Rate 20 15 Blood Pressure 188/93 H 181/84 H Pulse Oximetry 96 05/19/18 08:00 05/19/18 08:31 05/19/18 09:00 Temperature 98.9 F Pulse Rate 83 92 H 79 Respiratory Rate 17 Blood Pressure 174/79 H Pulse Oximetry 97 05/19/18 12:00 05/19/18 16:00 Temperature 97.9 F 98.0 F Pulse Rate 94 H 89 Respiratory Rate 18 18 Blood Pressure 175/84 H 164/83 H Pulse Oximetry 98 99 Intake & Output 05/19/18 05/19/18 05/20/18 06:59 18:59 06:59 Intake Total 300 / 300 2049 Balance 300 / 300 2049 Intake: IV 300 / 300 2049 D5W/1/2NS + KCL 20 mEq Inj 1, 1000 / 1000 000 ML @ 70 mls/hr IV.CONT . [id number] [facility] Rx#:[id number] NS Inj 1,000 ML @ 125 mls/hr IV 300 / 300 1000 / 1000 .CONT .Q8H [facility] Rx#:[id number] Diflucan 100 mg Premix Bag 50 50 / 50 ML @ 50 mls/hr IV.SIG Q24H [facility] Rx#:[id number] Other: Date of Last Bowel Movement 05/18/18 <Radha Hendricks - Last Filed: 05/19/18 20:26> Results - Labs CBC & Chem 7: 05/18/18 15:00 05/18/18 15:00 Labs: Laboratory Results - last 24 hr 05/18/18 05/18/18 05/18/18 15:00 15:00 15:00 WBC 15.4 H RBC 4.45 Hgb 12.0 Hct 35.7 MCV 80.1 MCH 26.8 L MCHC 33.5 RDW 14.4 Plt Count 300 MPV 8.9 Neut % (Auto) 81.8 H Lymph % (Auto) 10.9 Nolan % (Auto) 6.1 Eos % (Auto) 0.9 Baso % (Auto) 0.3 Neut # (Auto) 12.6 H Lymph # (Auto) 1.7 Nolan # (Auto) 0.9 Eos # (Auto) 0.1 Baso # (Auto) 0.0 WBC Differential . Differential Comment Auto diff final PT 10.9 INR 1.1 APTT 25.7 Sodium 143 Potassium 3.2 L Chloride 105 Carbon Dioxide 25.9 Anion Gap 12 BUN 28 H Creatinine 0.69 Estimated GFR Greater than 89 POC Glucose Random Glucose 153 H Calcium 9.7 Total Bilirubin 0.4 AST 28 ALT 35 Alkaline Phosphatase 81 Total Creatine Kinase 86 Total Protein 8.3 H Albumin 3.6 Urine Color Urine Clarity Urine pH Ur Specific [place] Urine Protein Urine Glucose (UA) Urine Ketones Urine Occult Blood Urine Nitrate Urine Bilirubin Urine Urobilinogen Ur Leukocyte Esterase Urine RBC Urine WBC Micro UA Comment Urine Culture Comments 05/18/18 05/18/18 05/19/18 15:17 15:30 07:40 WBC RBC Hgb Hct MCV MCH MCHC RDW Plt Count MPV Neut % (Auto) Lymph % (Auto) Nolan % (Auto) Eos % (Auto) Baso % (Auto) Neut # (Auto) Lymph # (Auto) Nolan # (Auto) Eos # (Auto) Baso # (Auto) WBC Differential Differential Comment PT INR APTT Sodium Potassium Chloride Carbon Dioxide Anion Gap BUN Creatinine Estimated GFR POC Glucose 151 H 180 H Random Glucose Calcium Total Bilirubin AST ALT Alkaline Phosphatase Total Creatine Kinase Total Protein Albumin Urine Color Yellow Urine Clarity Hazy H Urine pH 6.0 Ur Specific [place] 1.024 Urine Protein 100 H Urine Glucose (UA) 50 Urine Ketones Trace H Urine Occult Blood Negative Urine Nitrate Negative Urine Bilirubin Negative Urine Urobilinogen 4 or greater Ur Leukocyte Esterase Negative Urine RBC 1 Urine WBC 1 Micro UA Comment Cath-culture not ind Urine Culture Comments Cath-cult not ind 05/19/18 12:47 WBC RBC Hgb Hct MCV MCH MCHC RDW Plt Count MPV Neut % (Auto) Lymph % (Auto) Nolan % (Auto) Eos % (Auto) Baso % (Auto) Neut # (Auto) Lymph # (Auto) Nolan # (Auto) Eos # (Auto) Baso # (Auto) WBC Differential Differential Comment PT INR APTT Sodium Potassium Chloride Carbon Dioxide Anion Gap BUN Creatinine Estimated GFR POC Glucose 171 H Random Glucose Calcium Total Bilirubin AST ALT Alkaline Phosphatase Total Creatine Kinase Total Protein Albumin Urine Color Urine Clarity Urine pH Ur Specific [place] Urine Protein Urine Glucose (UA) Urine Ketones Urine Occult Blood Urine Nitrate Urine Bilirubin Urine Urobilinogen Ur Leukocyte Esterase Urine RBC Urine WBC Micro UA Comment Urine Culture Comments <JimmyGeorgina terry - Last Filed: 05/19/18 14:30> - Labs CBC & Chem 7: 05/19/18 15:28 05/19/18 15:28 Labs: Laboratory Results - last 24 hr 05/19/18 05/19/18 05/19/18 07:40 12:47 15:28 WBC 15.7 H RBC 4.61 Hgb 12.5 Hct 37.0 MCV 80.3 MCH 27.2 MCHC 33.9 RDW 14.4 Plt Count 269 MPV 9.1 Prelim Diff (Auto) Slide review pending Neut % (Auto) 79.5 H Lymph % (Auto) 12.7 Nolan % (Auto) 5.4 Eos % (Auto) 2.0 Baso % (Auto) 0.4 Neut # (Auto) 12.5 H Lymph # (Auto) 2.0 Nolan # (Auto) 0.9 Eos # (Auto) 0.3 Baso # (Auto) 0.1 WBC Differential . Diff Scan Auto diff confirmed Differential Comment . Platelet Estimate Normal Platelet Morphology Normal Ovalocytes 1+ H Sodium Potassium Chloride Carbon Dioxide Anion Gap BUN Creatinine Estimated GFR POC Glucose 180 H 171 H Random Glucose Calcium TSH Free T4 05/19/18 05/19/18 15:28 18:00 WBC RBC Hgb Hct MCV MCH MCHC RDW Plt Count MPV Prelim Diff (Auto) Neut % (Auto) Lymph % (Auto) Nolan % (Auto) Eos % (Auto) Baso % (Auto) Neut # (Auto) Lymph # (Auto) Nolan # (Auto) Eos # (Auto) Baso # (Auto) WBC Differential Diff Scan Differential Comment Platelet Estimate Platelet Morphology Ovalocytes Sodium 140 Potassium 3.1 L Chloride 105 Carbon Dioxide 24.7 Anion Gap 10 BUN 15 Creatinine 0.67 Estimated GFR Greater than 89 POC Glucose 152 H Random Glucose 164 H Calcium 8.8 D TSH 2.180 Free T4 1.34 - Imaging Impressions Chest X-Ray 05/19/18 00:00 CONCLUSION: Cardiomegaly. No acute pulmonary disease. <Radha Hendricks - Last Filed: 05/19/18 20:26> Assessment and Plan - Plan Assessment: - Dysphagia- Pt with baseline dementia recently admitted for CVA- DCd to rehab with recommendations for pureed diet, diet was advanced by facility staff to mechanical soft which pts sister states she was not tolerating. She had the facility change the diet back to pureed, however pt has not been swallowing any food since Wednesday. States she holds it in her mouth and spits it out. She is unsure if she has had any vomiting or if she is just spitting out retained foods. Unsure of any coughing, SOB, or choking after meals Pt has failed swallow evaluation. Unsure of previous EGD. Of note, pt on Plavix for history of CVA, according to rehab EMR, last administered yesterday, however pt has not been swallowing anything since Wednesday. Discussed with pts Alexis who would like to proceed with aggressive care including PEG placement. Plan: EGD with PEG placement tomorrow Obtain consent NPO Chest x-ray to rule out aspiration Dietary recommendations for TF Further recommendations based on findings of above Pt has been seen and examined by myself and Dr. Hendricks and this note is written on his behalf <Georgina Goyal - Last Filed: 05/19/18 14:30> - Attending Attestation As above, discussed with family and consent obtained, PEG placement in AM. Thank you for the consult. <Radha Hendricks - Last Filed: 05/19/18 20:26>
[2018-05-19 16:01] LABS: Baso # (Auto) 0.1 th/mm3 (0.0-0.2); Baso % (Auto) 0.4 % (0.0-2.0); Eos # (Auto) 0.3 th/mm3 (0.0-0.4); Hemoglobin 12.5 gm/dL (11.6-15.3); Lymph % (Auto) 12.7 % (9.0-44.0); Mean Corpuscular HGB Conc 33.9 % (32.0-36.0); Mean Corpuscular Hemoglobin 27.2 pg (27.0-34.0); Mean Corpuscular Volume 80.3 fL (80.0-100.0); Mean Platelet Volume 9.1 fL (7.0-11.0); Mono # (Auto) 0.9 th/mm3 (0.0-0.9); Mono % (Auto) 5.4 % (0.0-8.0); Neut # (Auto) 12.5 th/mm3 (1.8-7.7); Neut % (Auto) 79.5 % (16.0-70.0); Platelet Count 269 th/mm3 (150-450); Red Blood Count 4.61 mil/mm3 (4.00-5.30); Red Cell Distribution Width 14.4 % (11.6-17.2); White Blood Count 15.7 th/mm3 (4.0-11.0)
[2018-05-19 16:23] LABS: Anion Gap 10 meq/L (5-15); Blood Urea Nitrogen 15 mg/dL (7-18); Calcium 8.8 mg/dL (8.5-10.1); Carbon Dioxide 24.7 meq/L (21.0-32.0); Chloride 105 meq/L (98-107); Glomerular Filtration Rate Greater Than 89 mL/min (>89); Glucose,Random 164 mg/dL (74-106); Potassium 3.1 meq/L (3.5-5.1); Sodium 140 meq/L (136-145)
[2018-05-19 16:37] LABS: Free T4 (Free Thyroxine) 1.34 ng/dL (0.76-1.46)
[2018-05-19 17:01] LABS: Ovalocytes 1+
[2018-05-19 17:03] LABS: Platelet Estimate Normal (Normal); Platelet Morphology Normal (Normal)
[2018-05-19] MEDS: Enoxaparin Inj 40 MG/0.4 ML Syringe SQ SCH (20:34)
[2018-05-20] MEDS: KCL 20 mEq/D5W/NaCl 0.45% Inj 1,000 ML IV.CONT SCH ×2 (00:51→18:04)
[2018-05-20] MEDS: Levothyroxine 50 MCG Tablet PO SCH (06:04)
[2018-05-20] MEDS: Insulin NovoLOG Aspart Correctional Sugar Inj SQ SCH ×4 (07:41→21:00)
--- NOTE | 2018-05-20 08:13 | P.PN ---
Subjective Interval history: Follow up for dysphagia, fatigue, failure to thrive. The patient is sleeping upon my arrival, awakens to husbands voice at bedside. Does not verbalize any complaints. No acute issues overnight. BP elevated this morning, giving IV Vasotec. Going for EGD with PEG placement today. Physical Exam Vital signs: Vital Signs 05/19/18 08:31 05/19/18 09:00 05/19/18 12:00 Temperature 97.9 F Pulse Rate 92 H 79 94 H Respiratory Rate 18 Blood Pressure 175/84 H Pulse Oximetry 98 05/19/18 16:00 05/19/18 20:00 05/20/18 00:00 Temperature 98.0 F 99.9 F H 100.7 F H Pulse Rate 89 83 90 Respiratory Rate 18 16 16 Blood Pressure 164/83 H 180/91 H 174/90 H Pulse Oximetry 99 100 97 05/20/18 03:51 05/20/18 07:50 Temperature 101.8 F H Pulse Rate 79 72 Respiratory Rate 20 Blood Pressure 192/93 H Pulse Oximetry 98 Intake & Output 05/19/18 05/20/18 05/20/18 18:59 06:59 18:59 Intake Total 2049 / 2049 1000 / 1000 Balance 2049 / 2049 1000 / 1000 Intake: IV 2049 / 2049 1000 / 1000 D5W/1/2NS + KCL 20 mEq Inj 1, 1000 / 1000 1000 / 1000 000 ML @ 70 mls/hr IV.CONT . [id number] [facility] Rx#:[id number] NS Inj 1,000 ML @ 125 mls/hr IV 1000 / 1000 .CONT .Q8H [facility] Rx#:[id number] Diflucan 100 mg Premix Bag 50 50 / 50 ML @ 50 mls/hr IV.SIG Q24H [facility] Rx#:[id number] Other: Date of Last Bowel Movement 05/18/18 Narrative: GENERAL: Well-nourished, well-developed elderly female patient in NAD. SKIN: Warm and dry. No rash. HEAD: Normocephalic. Atraumatic. EYES: Pupils equal and round. No scleral icterus. No injection or drainage. ENT: No nasal bleeding or discharge. Mucous membranes pink and moist. Buccal mucosa with white patchy exudate. CARDIOVASCULAR: Regular rate and rhythm. No murmur appreciated. RESPIRATORY: No accessory muscle use. Clear to auscultation. Breath sounds equal bilaterally. GASTROINTESTINAL: Abdomen soft, non-tender, nondistended. Normoactive bowel sounds x4. MUSCULOSKELETAL: No obvious deformities. Extremities without clubbing, cyanosis , or edema. NEUROLOGICAL: Awake and alert. No obvious cranial nerve deficits. Motor grossly within normal limits. 1/5 strength RUE, 2/5 strength RLE, 4/5 strength LUE/LLE. Slurred speech. Expressive aphasia. Right sided facial droop. PSYCHIATRIC: Calm mood; insight and judgment poor. - Urinary Catheter Management Straight Cath placed during this visit: no Results - Labs CBC & Chem 7: 05/19/18 15:28 05/19/18 15:28 Laboratory Results - last 24 hr 05/19/18 05/19/18 05/19/18 12:47 15:28 15:28 WBC 15.7 H RBC 4.61 Hgb 12.5 Hct 37.0 MCV 80.3 MCH 27.2 MCHC 33.9 RDW 14.4 Plt Count 269 MPV 9.1 Prelim Diff (Auto) Slide review pending Neut % (Auto) 79.5 H Lymph % (Auto) 12.7 [place] % (Auto) 5.4 Eos % (Auto) 2.0 Baso % (Auto) 0.4 Neut # (Auto) 12.5 H Lymph # (Auto) 2.0 [place] # (Auto) 0.9 Eos # (Auto) 0.3 Baso # (Auto) 0.1 WBC Differential . Diff Scan Auto diff confirmed Differential Comment . Platelet Estimate Normal Platelet Morphology Normal Ovalocytes 1+ H Sodium 140 Potassium 3.1 L Chloride 105 Carbon Dioxide 24.7 Anion Gap 10 BUN 15 Creatinine 0.67 Estimated GFR Greater than 89 POC Glucose 171 H Random Glucose 164 H Calcium 8.8 D TSH 2.180 Free T4 1.34 05/19/18 05/19/18 05/20/18 18:00 20:22 07:29 WBC RBC Hgb Hct MCV MCH MCHC RDW Plt Count MPV Prelim Diff (Auto) Neut % (Auto) Lymph % (Auto) [place] % (Auto) Eos % (Auto) Baso % (Auto) Neut # (Auto) Lymph # (Auto) [place] # (Auto) Eos # (Auto) Baso # (Auto) WBC Differential Diff Scan Differential Comment Platelet Estimate Platelet Morphology Ovalocytes Sodium Potassium Chloride Carbon Dioxide Anion Gap BUN Creatinine Estimated GFR POC Glucose 152 H 189 H 178 H Random Glucose Calcium TSH Free T4 - Imaging Impressions Chest X-Ray 05/19/18 00:00 CONCLUSION: Cardiomegaly. No acute pulmonary disease. Assessment and Plan - Plan 88-year-old female with history of Alzheimer's dementia, diabetes, hypothyroidism, recurrent UTIs, hypertension, chronic constipation, and recent admission 05/07-05/12 for CVA with residual right facial droop and right-sided weakness, presents from the [facility] with worsening dysphagia and weakness. Failure to Thrive: suspect secondary to recent CVA and hospitalization in combination with dementia and chronic deconditioning. -UA reviewed and unremarkable -Consult PT/OT/ST, needs rehab -Consult palliative care, appreciate recommendations, patient's 's goal remain aggressive at this time Dysphagia: acute on chronic. Secondary to recent stroke. -Consulted ST, patient failed swallow, will need to stay NPO -Give IVF hydration with D5 1/2 NS w/KCl for now -Patient with oral candidiasis, concern for esophagitis, consult GI for further evaluation -Going for EGD with PEG placement today 05/20 -Assistant Service Manager consulted for tube feeding recommendations Oropharyngeal Candidiasis: concern for esophagitis. -unable to start po Nystatin due to NPO status -start IV Diflucan 100mg qd -consult GI for EGD Recent CVA: with residual right facial droop, slurred speech, aphasia, and right sided weakness. -holding patient's plavix/statin until peg placed, given lovenox -continue rehab efforts Diabetes Mellitus: chronic -hold patient's metformin -Monitor accu-checks and cover with SSI Hypertension: acute on chronic, BP elevated likely secondary to not receiving po meds while NPO -norvasc on hold until peg placed -continue IV Vasotec 2.5mg q6h prn -monitor BP, adjust antihypertensives as needed Dementia: chronic -patient's Namenda on hold until peg placed Hypothyroidism: chronic -synthroid on hold while NPO -check TSH and T4 Chronic Constipation: last reported small BM on 05/17 -continue patient's dulcolax suppository daily -constipation protocol meds prn DVT Prophylaxis: lovenox sq Discharge Planning: Going for EGD with PEG placement today. Will need tube feeds started prior to discharge. Further disposition depending on clinical course.
[2018-05-20] MEDS: amLODIPine 10 MG Tablet PO SCH (08:39)
[2018-05-20] MEDS: Senna/Docusate Sodium 8.6/50 MG Tablet PO SCH (08:39)
[2018-05-20] MEDS ORDERED: Lidocaine PF 1% Inj 5 ML Syringe INFILTRATN ONE (12:00)
[2018-05-20] MEDS ORDERED: Glycopyrrolate Inj 1 MG/5 ML Syringe IV.PUSH ONE (12:00)
--- NOTE | 2018-05-20 14:11 | GIPROC ---
[facility] [address] [facility]. [facility], [address] EGD WITH PEG PROCEDURE REPORT EXAM DATE: 05/20/2018 PATIENT NAME: Leilani Tristan MR#: [id number] BIRTHDATE: 1930 ATTENDING: Radha Hendricks MD ORDER #: [id number] MULTI DISCIPLINED LANGUAGE ANALYST: Donavan Monroy and Hubert Paula STATUS: inpatient INDICATIONS: The patient is a 88 yr old female here for an EGD with PEG due to placement of PEG PROCEDURE PERFORMED: EGD with PEG placement MEDICATIONS: None and Per Anesthesia. TOPICAL ANESTHETIC: none CONSENT: The patient understands the risks and benefits of the procedure and understands that these risks include, but are not limited to: sedation, allergic reaction, infection, perforation and/or bleeding. Alternative means of evaluation and treatment include, among others: physical exam, x-rays, and/or surgical intervention. The patient elects to proceed with this endoscopic procedure. medical equipment was checked for proper function. Hand hygiene and appropriate measures for infection prevention was taken. After the risks, benefits and alternatives of the procedure were thoroughly explained, Informed consent was verified, confirmed and timeout was successfully executed by the treatment team. The patient was anesthetized with topical anesthesia and the Pentax [id number] endoscope was introduced through the mouth and advanced to the second portion of the duodenum. The instrument was slowly withdrawn as the mucosa was fully examined. The upper, middle, and distal third of the esophagus were carefully inspected and no abnormalities were noted. The z-line was well seen at the GEJ. The endoscope was pushed into the fundus which was normal including a retroflexed view. The antrum, first and second part of the duodenum were unremarkable. The stomach was then inflated with air, and by a combination of transillumination and manual palpation, the site for the gastrostomy tube placement was selected and marked on the anterior abdominal wall. The skin of the anterior abdomen was surgically prepped and draped with sterile towels. Utilizing strict sterile technique, the selected site was then anesthetized with 1% xylocaine by injection into the skin and subcutaneous tissue. A 1 cm incision was made through the skin and subcutaneous tissue, and the needle/cannula assembly was then passed through the abdominal wall and through the anterior wall of the stomach, maintaining visualization with the endoscope. A snare device previously placed through the instrument channel was then opened and placed around the cannula, the needle was removed, and the insertion wire was passed through the cannula and into the stomach lumen. The snare was then loosened from the cannula, and repositioned to snare the insertion wire. The snare was then pulled up to the endoscope distal tip, and the scope was then withdrawn bringing with it the snare and insertion wire. The insertion wire was then released from the snare, and then loop-attached to the Bard 20 Fr gastrostomy tube. Using the "pull technique", the G-tube was then pulled into place by traction on the insertion wire at the abdominal wall end. The G-tube insertion site was then cleansed once again, and the external bolster was placed over the tube to secure it to the abdominal wall. A sterile dressing was then applied, and the procedure terminated. no abnormalities The gastroscope was then slowly withdrawn and removed. ADVERSE EVENT: There were no complications. IMPRESSIONS: 1. The upper, middle, and distal third of the esophagus were carefully inspected and no abnormalities were noted. The z-line was well seen at the GEJ. The endoscope was pushed into the fundus which was normal including a retroflexed view. The antrum, first and second part of the duodenum were unremarkable. 2. PEG tube placed successfully 20 F RECOMMENDATIONS: PEG recomendations: 1- NPO for 6 hours except for meds 2- Flush PEG tube every 6 hours with water and after each PEG feeding 3- May resume regular diet in the morning 4- May use Ensure or Boost etc. for PEG tube feeding REPEAT EXAM: procedure as needed Radha Hendricks MD eSigned: Radha Hendricks MD 05/20/2018 2:10 PM cc: PATIENT NAME: Leilani Tristan MR#: [id number]
[2018-05-20] MEDS ORDERED: Potassium Chlor 20 mEq Premix 20 MEQ/100 ML PIGGYBACK IV.SIG ONE (20:00)
[2018-05-20] MEDS: Senna/Docusate Sodium 8.6/50 MG Tablet G-TUBE SCH (21:00)
[2018-05-20] MEDS: Enoxaparin Inj 40 MG/0.4 ML Syringe SQ SCH (21:00)
[2018-05-21] MEDS: KCL 20 mEq/D5W/NaCl 0.45% Inj 1,000 ML IV.CONT SCH (03:19)
[2018-05-21] MEDS: Levothyroxine 50 MCG Tablet G-TUBE SCH (06:07)
[2018-05-21] MEDS: Insulin NovoLOG Aspart Correctional Sugar Inj SQ SCH ×4 (08:00→21:17)
[2018-05-21 08:15] LABS: Baso % (Auto) 0.3 % (0.0-2.0); Eos # (Auto) 0.1 th/mm3 (0.0-0.4); Eos % (Auto) 1.1 % (0.0-4.0); Hematocrit 34.7 % (35.0-46.0); Hemoglobin 11.4 gm/dL (11.6-15.3); Lymph % (Auto) 15.3 % (9.0-44.0); Mean Corpuscular HGB Conc 32.8 % (32.0-36.0); Mean Corpuscular Hemoglobin 26.2 pg (27.0-34.0); Mean Corpuscular Volume 79.8 fL (80.0-100.0); Mean Platelet Volume 9.5 fL (7.0-11.0); Mono % (Auto) 7.7 % (0.0-8.0); Neut # (Auto) 9.9 th/mm3 (1.8-7.7); Neut % (Auto) 75.6 % (16.0-70.0); Platelet Count 272 th/mm3 (150-450); Red Blood Count 4.34 mil/mm3 (4.00-5.30); Red Cell Distribution Width 14.1 % (11.6-17.2); White Blood Count 13.1 th/mm3 (4.0-11.0)
[2018-05-21 08:35] LABS: Anion Gap 12 meq/L (5-15); Blood Urea Nitrogen 10 mg/dL (7-18); Calcium 8.4 mg/dL (8.5-10.1); Carbon Dioxide 24.1 meq/L (21.0-32.0); Chloride 101 meq/L (98-107); Glomerular Filtration Rate Greater Than 89 mL/min (>89); Glucose,Random 159 mg/dL (74-106); Magnesium 1.3 mg/dL (1.5-2.5); Sodium 137 meq/L (136-145)
[2018-05-21] MEDS: amLODIPine 10 MG Tablet G-TUBE SCH (09:00)
[2018-05-21] MEDS: Senna/Docusate Sodium 8.6/50 MG Tablet G-TUBE SCH ×2 (09:00→20:35)
--- NOTE | 2018-05-21 10:08 | P.PNGI ---
Subjective Interval history: Pt resting in bed. Nonverbal. PEG clamped, site with scant amount of dried blood. <Georgina Goyal - Last Filed: 05/21/18 10:05> Physical Exam Vital signs: Vital Signs 05/20/18 11:40 05/20/18 12:00 05/20/18 12:40 Temperature 98.0 F Pulse Rate 75 77 Respiratory Rate 20 18 Blood Pressure 192/83 H 151/92 H Pulse Oximetry 96 96 97 05/20/18 14:06 05/20/18 14:15 05/20/18 14:30 Temperature 98 F 98 F Pulse Rate 105 H 107 H 107 H Respiratory Rate 18 18 18 Blood Pressure 167/81 H 167/88 H 167/71 H Pulse Oximetry 97 97 96 05/20/18 18:32 05/20/18 19:57 05/20/18 22:43 Temperature 99.1 F 99.2 F 99.3 F Pulse Rate 92 H 97 H 94 H Respiratory Rate 20 16 16 Blood Pressure 143/78 H 183/90 H 169/83 H Pulse Oximetry 99 100 100 05/21/18 00:00 05/21/18 02:41 05/21/18 03:01 Temperature 98.6 F Pulse Rate 84 88 93 H Respiratory Rate 16 Blood Pressure 182/88 H Pulse Oximetry 100 05/21/18 04:06 05/21/18 08:40 Temperature 97.9 F Pulse Rate 78 68 Respiratory Rate 18 Blood Pressure 190/86 H Pulse Oximetry 98 Intake & Output 05/20/18 05/21/18 05/21/18 18:59 06:59 18:59 Intake Total 1400 / 1400 Balance 1400 / 1400 Intake: IV 1000 / 1000 D5W/1/2NS + KCL 20 mEq Inj 1, 1000 / 1000 000 ML @ 70 mls/hr IV.CONT . [id number] [facility] Rx#:[id number] Anesthesia Amount 400 / 400 Other: Date of Last Bowel Movement 05/18/18 - Constitutional no acute distress - Routine HEENT Exam Head: Present: normocephalic, atraumatic - Routine Respiratory Exam Absent: accessory muscle use - Routine Abdominal Exam Present: normoactive bowel sounds - Routine Neurological Exam Absent: alert, oriented X3 - Urinary Catheter Management Straight Cath placed during this visit: no <Georgina Goyal - Last Filed: 05/21/18 10:05> Vital signs: Vital Signs 05/20/18 22:43 05/21/18 00:00 05/21/18 02:41 Temperature 99.3 F 98.6 F Pulse Rate 94 H 84 88 Respiratory Rate 16 16 Blood Pressure 169/83 H 182/88 H Pulse Oximetry 100 100 05/21/18 03:01 05/21/18 04:06 05/21/18 08:00 Temperature Pulse Rate 93 H 78 86 Respiratory Rate Blood Pressure Pulse Oximetry 05/21/18 08:40 05/21/18 12:57 05/21/18 19:47 Temperature 97.9 F 98.0 F 100.2 F H Pulse Rate 68 72 84 Respiratory Rate 18 20 16 Blood Pressure 190/86 H 180/86 H 163/78 H Pulse Oximetry 98 98 95 Intake & Output 05/21/18 05/21/18 05/22/18 06:59 18:59 06:59 Intake Total 50 / 50 100 / 100 Balance 50 / 50 100 / 100 Intake: IV 50 / 50 100 / 100 Diflucan 100 mg Premix Bag 50 50 / 50 ML @ 50 mls/hr IV.SIG Q24H [facility] Rx#:[id number] Magnesium Sulfate 1 gm/D5W 100 100 / 100 ml Premix 100 ML @ 100 mls/hr IV.SIG Q1H [facility] Rx#:[id number] - Urinary Catheter Management Straight Cath placed during this visit: no <Radha Hendricks - Last Filed: 05/21/18 20:49> Results - Labs CBC & Chem 7: 05/21/18 07:14 05/21/18 07:17 Laboratory Results - last 24 hr 05/20/18 05/20/18 05/20/18 12:32 17:36 20:59 WBC RBC Hgb Hct MCV MCH MCHC RDW Plt Count MPV Neut % (Auto) Lymph % (Auto) [place] % (Auto) Eos % (Auto) Baso % (Auto) Neut # (Auto) Lymph # (Auto) [place] # (Auto) Eos # (Auto) Baso # (Auto) WBC Differential Differential Comment Sodium Potassium Chloride Carbon Dioxide Anion Gap BUN Creatinine Estimated GFR POC Glucose 169 H 175 H 165 H Random Glucose Calcium Magnesium 05/21/18 05/21/18 05/21/18 07:14 07:17 08:09 WBC 13.1 H RBC 4.34 Hgb 11.4 L Hct 34.7 L MCV 79.8 L MCH 26.2 L MCHC 32.8 RDW 14.1 Plt Count 272 MPV 9.5 Neut % (Auto) 75.6 H Lymph % (Auto) 15.3 [place] % (Auto) 7.7 Eos % (Auto) 1.1 Baso % (Auto) 0.3 Neut # (Auto) 9.9 H Lymph # (Auto) 2.0 [place] # (Auto) 1.0 H Eos # (Auto) 0.1 Baso # (Auto) 0.0 WBC Differential . Differential Comment Auto diff final Sodium 137 Potassium 3.0 L Chloride 101 Carbon Dioxide 24.1 Anion Gap 12 BUN 10 Creatinine 0.56 Estimated GFR Greater than 89 POC Glucose 164 H Random Glucose 159 H Calcium 8.4 L Magnesium 1.3 L <Georgina Goyal - Last Filed: 05/21/18 10:05> - Labs CBC & Chem 7: 05/21/18 07:14 05/21/18 07:17 Laboratory Results - last 24 hr 05/20/18 05/21/18 05/21/18 20:59 07:14 07:17 WBC 13.1 H RBC 4.34 Hgb 11.4 L Hct 34.7 L MCV 79.8 L MCH 26.2 L MCHC 32.8 RDW 14.1 Plt Count 272 MPV 9.5 Neut % (Auto) 75.6 H Lymph % (Auto) 15.3 [place] % (Auto) 7.7 Eos % (Auto) 1.1 Baso % (Auto) 0.3 Neut # (Auto) 9.9 H Lymph # (Auto) 2.0 [place] # (Auto) 1.0 H Eos # (Auto) 0.1 Baso # (Auto) 0.0 WBC Differential . Differential Comment Auto diff final Sodium 137 Potassium 3.0 L Chloride 101 Carbon Dioxide 24.1 Anion Gap 12 BUN 10 Creatinine 0.56 Estimated GFR Greater than 89 POC Glucose 165 H Random Glucose 159 H Calcium 8.4 L Magnesium 1.3 L 05/21/18 05/21/18 05/21/18 08:09 11:57 17:37 WBC RBC Hgb Hct MCV MCH MCHC RDW Plt Count MPV Neut % (Auto) Lymph % (Auto) [place] % (Auto) Eos % (Auto) Baso % (Auto) Neut # (Auto) Lymph # (Auto) [place] # (Auto) Eos # (Auto) Baso # (Auto) WBC Differential Differential Comment Sodium Potassium Chloride Carbon Dioxide Anion Gap BUN Creatinine Estimated GFR POC Glucose 164 H 227 H 226 H Random Glucose Calcium Magnesium <Radha Hendricks - Last Filed: 05/21/18 20:49> Assessment and Plan - Plan Assessment: - Dysphagia- Pt with baseline dementia recently admitted for CVA- DCd to rehab with recommendations for pureed diet, diet was advanced by facility staff to mechanical soft which pts sister states she was not tolerating. She had the facility change the diet back to pureed, however pt has not been swallowing any food since Wednesday. States she holds it in her mouth and spits it out. She is unsure if she has had any vomiting or if she is just spitting out retained foods. Unsure of any coughing, SOB, or choking after meals Pt has failed swallow evaluation. Unsure of previous EGD. Of note, pt on Plavix for history of CVA, according to rehab EMR, last administered yesterday, however pt has not been swallowing anything since Wednesday. Discussed with pts Alexis who would like to proceed with aggressive care including PEG placement. (05/21) Pt S/P EGD with PEG placement yesterday --> Normal EGD, placement of 20 F PEG. PEG clamped, site with scant amount of dried blood, covered with clean and dry gauze. Plan: TF per dietary recommendations Abdominal binder as needed Flush PEG q 6hrs and after feedings and medication GI will sign off, please reconsult as needed Have pt follow up with GI after DC Pt has been seen and examined by myself and Dr. Hendricks and this note is written on his behalf <Georgina Goyal - Last Filed: 05/21/18 10:05> - Attending Attestation Tolerating TF well and clean wound site. Please notify us if needed again. <Radha Hendricks - Last Filed: 05/21/18 20:49>
--- NOTE | 2018-05-21 12:41 | P.DIET ---
Nutritional Evaluation Type of nutrition evaluation: initial Nutrition consult regarding: Tube Feeding Nutrition screening: Poor PO Intake Subjective Barriers to Nutrition: Swallowing problem Oral Diet Tolerance Assessment Indicates: Swallowing problems Objective - Diagnosis Swallowing issues. PMH see H&P - Objective % IBW: 115 Body Weight Used for Calculations: Actual Energy Needs - Lower Range (kCal/kg): 25 Energy Needs - Upper Range (kCal/kg): 30 Lower Limit kCal/kg (kCals): 1,700 Upper Limit kCal/kg (kCals): 2,040 Lower Limit Protein Factor (Grams per Kg): 1 Upper Limit Protein Factor (Grams per Kg): 1.5 Lower Protein Needs (Protein): 68 Upper Protein Needs (Protein): 102 Dietitian Reviewed in Medical Record: Current diet, Curent medications, Intake & Output, Labs, Medical history Diet Order: NPO Oral Diet Intake Amount: Poor <50% Speech Therapy Recommendations: Yes (NPO) Objective Comments: PMH of Alzheimer's dementia, diabetes, hypothyroidism, recurrent UTIs, hypertension, chronic constipation Assessment Assessment: Pt. is at nutritional risk due to dx. and need for TFing. Pt. 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 Pt. has been unable to swallow since 05/16, was on a pureed diet prior. Pt. is now s/p PEG placement. No skin assessment documented at this time. Pts. BGlu have been elevated during stay, hx. of DM. Recommend starting Glucerna 1.5 5 cans per day. Recommend 1 can (240mls) at 0700, 1000, 1300, 1600 and 1900. Will provide 1800kcals, 99g of protein and 911mls of free water. Monitor TFing tolerance, labs, wt. and skin. Recommendations: 1. Recommend starting Glucerna 1.5 5 cans per day. 2. Recommend 1 can (240mls) at 0700, 1000, 1300, 1600 and 1900. 3. Monitor TFing tolerance, labs, wt. and skin. Dietitian to Monitor: Lab values, Glucose level, Intake & Output, Tube feeding tolerance, Weight change, Residuals, Wound/skin status, Medical course
--- NOTE | 2018-05-21 14:35 | P.PN ---
Subjective Interval history: Follow up for dysphagia, s/p PEG placement 05/20. Patient seen around 9am. She remains mostly nonverbal except for saying "ok" once throughout conversation. No acute events overnight. Tolerating tube feeds so far. No further fevers. BP remains elevated. Physical Exam Vital signs: Vital Signs 05/20/18 14:30 05/20/18 18:32 05/20/18 19:57 Temperature 98 F 99.1 F 99.2 F Pulse Rate 107 H 92 H 97 H Respiratory Rate 18 20 16 Blood Pressure 167/71 H 143/78 H 183/90 H Pulse Oximetry 96 99 100 05/20/18 22:43 05/21/18 00:00 05/21/18 02:41 Temperature 99.3 F 98.6 F Pulse Rate 94 H 84 88 Respiratory Rate 16 16 Blood Pressure 169/83 H 182/88 H Pulse Oximetry 100 100 05/21/18 03:01 05/21/18 04:06 05/21/18 08:40 Temperature 97.9 F Pulse Rate 93 H 78 68 Respiratory Rate 18 Blood Pressure 190/86 H Pulse Oximetry 98 05/21/18 12:57 Temperature 98.0 F Pulse Rate 72 Respiratory Rate 20 Blood Pressure 180/86 H Pulse Oximetry 98 Intake & Output 05/20/18 05/21/18 05/21/18 18:59 06:59 18:59 Intake Total 1400 / 1400 50 / 50 Balance 1400 / 1400 50 / 50 Intake: IV 1000 / 1000 50 / 50 D5W/1/2NS + KCL 20 mEq Inj 1, 1000 / 1000 000 ML @ 70 mls/hr IV.CONT . [id number] [facility] Rx#:[id number] Diflucan 100 mg Premix Bag 50 50 / 50 ML @ 50 mls/hr IV.SIG Q24H [facility] Rx#:[id number] Anesthesia Amount 400 / 400 Other: Date of Last Bowel Movement 05/18/18 Narrative: GENERAL: Well-nourished, well-developed elderly female patient in NAD. SKIN: Warm and dry. No rash. HEAD: Normocephalic. Atraumatic. EYES: Pupils equal and round. No scleral icterus. No injection or drainage. ENT: No nasal bleeding or discharge. Mucous membranes pink and moist. Buccal mucosa nonerythematous with no exudates today. CARDIOVASCULAR: Regular rate and rhythm. No murmur appreciated. RESPIRATORY: No accessory muscle use. Clear to auscultation. Breath sounds equal bilaterally. GASTROINTESTINAL: Abdomen soft, non-tender, nondistended. Normoactive bowel sounds x4. G-tube at left upper abdomen, surrounding by dressing, CDI. MUSCULOSKELETAL: No obvious deformities. Extremities without clubbing, cyanosis , or edema. NEUROLOGICAL: Drowsy. No obvious cranial nerve deficits. 1/5 strength RUE, 2/5 strength RLE, 4/5 strength LUE/LLE. Slurred speech. Expressive aphasia. Right sided facial droop. PSYCHIATRIC: Calm mood; insight and judgment poor. - Urinary Catheter Management Straight Cath placed during this visit: no Results - Labs CBC & Chem 7: 05/21/18 07:14 05/21/18 07:17 Laboratory Results - last 24 hr 05/20/18 05/20/18 05/21/18 17:36 20:59 07:14 WBC 13.1 H RBC 4.34 Hgb 11.4 L Hct 34.7 L MCV 79.8 L MCH 26.2 L MCHC 32.8 RDW 14.1 Plt Count 272 MPV 9.5 Neut % (Auto) 75.6 H Lymph % (Auto) 15.3 [place] % (Auto) 7.7 Eos % (Auto) 1.1 Baso % (Auto) 0.3 Neut # (Auto) 9.9 H Lymph # (Auto) 2.0 [place] # (Auto) 1.0 H Eos # (Auto) 0.1 Baso # (Auto) 0.0 WBC Differential . Differential Comment Auto diff final Sodium Potassium Chloride Carbon Dioxide Anion Gap BUN Creatinine Estimated GFR POC Glucose 175 H 165 H Random Glucose Calcium Magnesium 05/21/18 05/21/18 05/21/18 07:17 08:09 11:57 WBC RBC Hgb Hct MCV MCH MCHC RDW Plt Count MPV Neut % (Auto) Lymph % (Auto) [place] % (Auto) Eos % (Auto) Baso % (Auto) Neut # (Auto) Lymph # (Auto) [place] # (Auto) Eos # (Auto) Baso # (Auto) WBC Differential Differential Comment Sodium 137 Potassium 3.0 L Chloride 101 Carbon Dioxide 24.1 Anion Gap 12 BUN 10 Creatinine 0.56 Estimated GFR Greater than 89 POC Glucose 164 H 227 H Random Glucose 159 H Calcium 8.4 L Magnesium 1.3 L - Procedures 05/20/18 - EGD with PEG placement Assessment and Plan - Plan 88-year-old female with history of Alzheimer's dementia, diabetes, hypothyroidism, recurrent UTIs, hypertension, chronic constipation, and recent admission 05/07-05/12 for 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 Failure to Thrive: suspect secondary to recent CVA and hospitalization in combination with dementia and chronic deconditioning. -UA reviewed and unremarkable -Consult PT/OT/ST, needs rehab -Consult palliative care, appreciate recommendations, patient's 's goal remain aggressive at this time -will plan to return to SNF at discharge Dysphagia: acute on chronic. Secondary to recent stroke. -Consulted ST, patient failed swallow, will need to stay NPO -Give IVF hydration with D5 1/2 NS w/KCl for now -S/p EGD with PEG placement 05/20 -[facility] consulted for tube feeding recommendations, appreciate recommendations Oropharyngeal Candidiasis: acute, suspect secondary to dentures and poor oral care -unable to start po Nystatin SS due to NPO status -Given IV Diflucan 100mg qd, will transition to via peg -EGD without any evidence of esophagitis Recent CVA: with residual right facial droop, slurred speech, aphasia, and right sided weakness. -continue patient's plavix via peg -continue rehab efforts Diabetes Mellitus: chronic -hold patient's metformin for now -Monitor accu-checks and cover with SSI Hypertension: acute on chronic, BP elevated likely secondary to not receiving po meds while NPO -continue patient's norvasc via peg -continue IV Vasotec 2.5mg q6h prn -monitor BP, adjust antihypertensives as needed -BP still uncontrolled, added lisinopril 10mg daily Dementia: chronic -continue patient's Namenda via peg Hypothyroidism: chronic -continue patient's synthroid -TSH and T4 wnl Chronic Constipation: last reported small BM on 05/17 -continue patient's dulcolax suppository daily -constipation protocol meds prn DVT Prophylaxis: lovenox sq Discharge Planning: Initiating tube feeds today. Expect to discharge back to SNF tomorrow if tolerating well. BP also still uncontrolled. Not yet ready for discharge.
[2018-05-21] MEDS: Mag Sulf 1 gm/100 ml Premix 100 ML IV.SIG SCH ×2 (15:45→16:39)
[2018-05-21] MEDS: Lisinopril 10 MG Tablet G-TUBE SCH (15:49)
[2018-05-21] MEDS: Potassium Chlor 20 mEq Premix 20 MEQ/100 ML PIGGYBACK IV.SIG SCH ×2 (17:38→23:06)
[2018-05-21] MEDS: Enoxaparin Inj 40 MG/0.4 ML Syringe SQ SCH (20:35)
[2018-05-22] MEDS: Acetaminophen 325 MG Tablet PO PRN (00:16)
[2018-05-22 01:32] LABS: Bacteria,Urine Many /hpf; Bilirubin,Urine Negative (Negative); Clarity,Urine Hazy (Clear); Color,Urine Yellow (Yellw/Straw); Glucose,Urine (UA) Negative (Negative); Leukocyte Esterase,Urine Trace (Negative); Mucus,Urine Few /lpf (Occasional); Nitrite,Urine Positive (Negative); Specific Gravity,Urine 1.016 (1.002-1.035); Squamous Epithelial Cell,Urine 2 /hpf (0-5); Urobilinogen,Urine 4 or Greater mg/dL (Less than 2)
[2018-05-22 01:38] LABS: Baso # (Auto) 0.1 th/mm3 (0.0-0.2); Baso % (Auto) 0.5 % (0.0-2.0); Eos # (Auto) 0.2 th/mm3 (0.0-0.4); Eos % (Auto) 1.7 % (0.0-4.0); Hematocrit 32.6 % (35.0-46.0); Hemoglobin 10.9 gm/dL (11.6-15.3); Lymph # (Auto) 1.7 th/mm3 (1.0-4.8); Lymph % (Auto) 14.7 % (9.0-44.0); Mean Corpuscular HGB Conc 33.4 % (32.0-36.0); Mean Corpuscular Hemoglobin 26.1 pg (27.0-34.0); Mean Corpuscular Volume 78.1 fL (80.0-100.0); Mean Platelet Volume 9.5 fL (7.0-11.0); Mono # (Auto) 0.6 th/mm3 (0.0-0.9); Mono % (Auto) 5.5 % (0.0-8.0); Neut # (Auto) 9.2 th/mm3 (1.8-7.7); Neut % (Auto) 77.6 % (16.0-70.0); Platelet Count 263 th/mm3 (150-450); Red Blood Count 4.17 mil/mm3 (4.00-5.30); White Blood Count 11.9 th/mm3 (4.0-11.0)
--- NOTE | 2018-05-22 01:51 | XR ---
EXAM DATE: 05/22/2018 1:21 AM EDT AGE/SEX: 88 years / Female INDICATIONS: Shortness of breath. Fever CLINICAL DATA: This is the patient's subsequent encounter. Patient reports that signs and symptoms h ave been present for 3 days and indicates a pain score of 1/10. MEDICAL/SURGICAL HISTORY: . Diabetes mellitus type II. Hypertension. Hysterectomy. [place]PAR[place]: [facility] [place] S[place], [place]/19/2018. . FINDINGS: A single AP view of the chest demonstrates the lungs to be symmetrically aerated without evidence of mass, infiltrate or effusion. The cardiomediastinal contours are unremarkable. Osseous structures a re intact. CONCLUSION: No acute disease Electronically signed by: David Pelletier MD 05/22/2018 1:49 AM EDT
[2018-05-22 02:02] LABS: Anion Gap 10 meq/L (5-15); Blood Urea Nitrogen 14 mg/dL (7-18); Calcium 8.6 mg/dL (8.5-10.1); Carbon Dioxide 25.3 meq/L (21.0-32.0); Chloride 99 meq/L (98-107); Glomerular Filtration Rate Greater Than 89 mL/min (>89); Glucose,Random 178 mg/dL (74-106); Magnesium 1.8 mg/dL (1.5-2.5); Potassium 3.4 meq/L (3.5-5.1); Sodium 134 meq/L (136-145)
[2018-05-22] MEDS: Levothyroxine 50 MCG Tablet G-TUBE SCH (05:55)
[2018-05-22] MEDS: Insulin NovoLOG Aspart Correctional Sugar Inj SQ SCH ×4 (08:41→21:32)
[2018-05-22] MEDS: Fluconazole 100 MG Tablet G-TUBE SCH (08:42)
[2018-05-22] MEDS: amLODIPine 10 MG Tablet G-TUBE SCH (08:42)
[2018-05-22] MEDS: Lisinopril 10 MG Tablet G-TUBE SCH (08:42)
[2018-05-22] MEDS: Senna/Docusate Sodium 8.6/50 MG Tablet G-TUBE SCH ×2 (08:42→21:26)
[2018-05-22] MEDS: KCL 20 mEq/D5W/NaCl 0.45% Inj 1,000 ML IV.CONT SCH ×2 (08:43→08:44)
--- NOTE | 2018-05-22 14:02 | P.PN ---
Subjective Interval history: Follow up for dysphagia s/p PEG placement. The patient spiked fevers overnight, Tmax 101.3. Repeat urinalysis now showing UTI. Repeat CXR negative. Blood cultures collected. She was started on IV Rocephin. The patient is much more awake this morning. She says to me "how are ya rainer?" Difficult understanding the patient, however she denies any specific medical complaints. Denies any pain. Physical Exam Vital signs: Vital Signs 05/21/18 19:47 05/22/18 00:00 05/22/18 03:23 Temperature 100.2 F H 101.3 F H 99.7 F H Pulse Rate 84 96 H 88 Respiratory Rate 16 16 18 Blood Pressure 163/78 H 184/85 H 158/82 H Pulse Oximetry 95 100 100 05/22/18 05:39 05/22/18 08:00 05/22/18 09:00 Temperature 100.5 F H Pulse Rate 94 H 83 94 H Respiratory Rate 14 Blood Pressure 175/81 H Pulse Oximetry 99 05/22/18 12:00 Temperature 99.0 F Pulse Rate 95 H Respiratory Rate 14 Blood Pressure 173/77 H Pulse Oximetry 99 Intake & Output 05/21/18 05/22/18 05/22/18 18:59 06:59 18:59 Intake Total 1100 / 1100 100 / 100 Output Total 350 / 350 Balance 1100 / 1100 -250 / -250 Intake: IV 1100 / 1100 100 / 100 D5W/1/2NS + KCL 20 mEq Inj 1, 1000 / 1000 000 ML @ 70 mls/hr IV.CONT . [id number] [facility] Rx#:[id number] Magnesium Sulfate 1 gm/D5W 100 100 / 100 ml Premix 100 ML @ 100 mls/hr IV.SIG Q1H [facility] Rx#:[id number] KCl 20 mEq Premix Inj 20 meq In 100 / 100 100 ml @ 50 mls/hr IV.SIG Q2H [facility] Rx#:[id number] Output: Urine 350 / 350 Other: Date of Last Bowel Movement 05/19/18 05/19/18 Narrative: GENERAL: Well-nourished, well-developed elderly female patient in [facility]. SKIN: Warm and dry. No rash. HEAD: Normocephalic. Atraumatic. EYES: Pupils equal and round. No scleral icterus. No injection or drainage. ENT: No nasal bleeding or discharge. Mucous membranes pink and moist. Buccal mucosa nonerythematous with no exudates today. CARDIOVASCULAR: Regular rate and rhythm. No murmur appreciated. RESPIRATORY: No accessory muscle use. Clear to auscultation. Breath sounds equal bilaterally. GASTROINTESTINAL: Abdomen soft, non-tender, nondistended. Normoactive bowel sounds x4. G-tube at left upper abdomen, surrounding by dressing, CDI. MUSCULOSKELETAL: No obvious deformities. Extremities without clubbing, cyanosis , or edema. NEUROLOGICAL: Drowsy. No obvious cranial nerve deficits. 1/5 strength RUE, 2/5 strength RLE, 4/5 strength LUE/LLE. Slurred speech. Expressive aphasia. Right sided facial droop. PSYCHIATRIC: Calm mood; insight and judgment poor. - Urinary Catheter Management Straight Cath placed during this visit: no Reason for continuing: Not indwelling catheter Results - Labs CBC & Chem 7: 05/22/18 01:07 05/22/18 01:07 Laboratory Results - last 24 hr 05/21/18 05/21/18 05/22/18 17:37 21:13 00:45 WBC RBC Hgb Hct MCV MCH MCHC RDW Plt Count MPV Neut % (Auto) Lymph % (Auto) [place] % (Auto) Eos % (Auto) Baso % (Auto) Neut # (Auto) Lymph # (Auto) [place] # (Auto) Eos # (Auto) Baso # (Auto) WBC Differential Differential Comment Sodium Potassium Chloride Carbon Dioxide Anion Gap BUN Creatinine Estimated GFR POC Glucose 226 H 167 H Random Glucose Calcium Magnesium Urine Color Yellow Urine Clarity Hazy H Urine pH 6.0 Ur Specific [place] 1.016 Urine Protein 100 H Urine Glucose (UA) Negative Urine Ketones Negative Urine Occult Blood Negative Urine Nitrate Positive H Urine Bilirubin Negative Urine Urobilinogen 4 or greater Ur Leukocyte Esterase Trace H Urine RBC 2 Urine WBC 10 H Ur Squamous Epith Cells 2 Urine Bacteria Many H Urine Mucus Few H Micro UA Comment Culture indicated Urine Culture Comments Culture indicated 05/22/18 05/22/18 05/22/18 01:07 01:07 07:47 WBC 11.9 H RBC 4.17 Hgb 10.9 L Hct 32.6 L MCV 78.1 L MCH 26.1 L MCHC 33.4 RDW 14.0 Plt Count 263 MPV 9.5 Neut % (Auto) 77.6 H Lymph % (Auto) 14.7 Bryan % (Auto) 5.5 Eos % (Auto) 1.7 Baso % (Auto) 0.5 Neut # (Auto) 9.2 H Lymph # (Auto) 1.7 Bryan # (Auto) 0.6 Eos # (Auto) 0.2 Baso # (Auto) 0.1 WBC Differential . Differential Comment Auto diff final Sodium 134 L Potassium 3.4 L Chloride 99 Carbon Dioxide 25.3 Anion Gap 10 BUN 14 Creatinine 0.73 Estimated GFR Greater than 89 POC Glucose 248 H Random Glucose 178 H Calcium 8.6 Magnesium 1.8 Urine Color Urine Clarity Urine pH Ur Specific [place] Urine Protein Urine Glucose (UA) Urine Ketones Urine Occult Blood Urine Nitrate Urine Bilirubin Urine Urobilinogen Ur Leukocyte Esterase Urine RBC Urine WBC Ur Squamous Epith Cells Urine Bacteria Urine Mucus Micro UA Comment Urine Culture Comments 05/22/18 12:41 WBC RBC Hgb Hct MCV MCH MCHC RDW Plt Count MPV Neut % (Auto) Lymph % (Auto) Bryan % (Auto) Eos % (Auto) Baso % (Auto) Neut # (Auto) Lymph # (Auto) Bryan # (Auto) Eos # (Auto) Baso # (Auto) WBC Differential Differential Comment Sodium Potassium Chloride Carbon Dioxide Anion Gap BUN Creatinine Estimated GFR POC Glucose 212 H Random Glucose Calcium Magnesium Urine Color Urine Clarity Urine pH Ur Specific [place] Urine Protein Urine Glucose (UA) Urine Ketones Urine Occult Blood Urine Nitrate Urine Bilirubin Urine Urobilinogen Ur Leukocyte Esterase Urine RBC Urine WBC Ur Squamous Epith Cells Urine Bacteria Urine Mucus Micro UA Comment Urine Culture Comments - Imaging Impressions Chest X-Ray 05/22/18 00:00 CONCLUSION: No acute disease - Procedures 05/20/18 - EGD with PEG placement Assessment and Plan - Plan 88-year-old female with history of Alzheimer's dementia, diabetes, hypothyroidism, recurrent UTIs, hypertension, chronic constipation, and recent 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 Sepsis with UTI: patient spiked fever 101.3 overnight, with +leukocytosis, tachycardia HR 95, and suspected source-UTI. -started on IV Rocephin. -monitor urine and blood cultures, adjust antibiotics as needed -monitor for improvement Failure to Thrive: suspect secondary to recent CVA and hospitalization in combination with dementia and chronic deconditioning. -UA reviewed and unremarkable -Consult PT/OT/ST, needs rehab -Consult palliative care, appreciate recommendations, patient's 's goal remain aggressive at this time -will plan to return to SNF at discharge Dysphagia: acute on chronic. Secondary to recent stroke. -Consulted ST, patient failed swallow, will need to stay NPO -Give IVF hydration with D5 1/2 NS w/KCl for now -S/p EGD with PEG placement 05/20 -Passenger Locomotive Engineer consulted for tube feeding recommendations, appreciate recommendations Oropharyngeal Candidiasis: acute, suspect secondary to dentures and poor oral care -unable to start po Nystatin SS due to NPO status -Given IV Diflucan 100mg qd, will transition to via peg -EGD without any evidence of esophagitis Recent CVA: with residual right facial droop, slurred speech, aphasia, and right sided weakness. -continue patient's plavix via peg -continue rehab efforts Diabetes Mellitus: chronic -hold patient's metformin for now -Monitor accu-checks and cover with SSI Hypertension: acute on chronic, BP elevated likely secondary to not receiving po meds while NPO -continue patient's norvasc via peg -continue IV Vasotec 2.5mg q6h prn -monitor BP, adjust antihypertensives as needed -BP still uncontrolled, added lisinopril 10mg daily Dementia: chronic -continue patient's Namenda via peg Hypothyroidism: chronic -continue patient's synthroid -TSH and T4 wnl Chronic Constipation: last reported small BM on 05/17 -continue patient's dulcolax suppository daily -constipation protocol meds prn DVT Prophylaxis: lovenox sq Discharge Planning: Discharge pending further clinical improvement. Patient currently with sepsis/ UTI. Not yet ready for discharge.
[2018-05-22] MEDS: Enoxaparin Inj 40 MG/0.4 ML Syringe SQ SCH (21:25)
[2018-05-23] MEDS: KCL 20 mEq/D5W/NaCl 0.45% Inj 1,000 ML IV.CONT SCH ×2 (00:30→12:50)
[2018-05-23] MEDS: Levothyroxine 50 MCG Tablet G-TUBE SCH (05:31)
[2018-05-23] MEDS: Insulin NovoLOG Aspart Correctional Sugar Inj SQ SCH ×4 (09:47→20:53)
[2018-05-23] MEDS: amLODIPine 10 MG Tablet G-TUBE SCH (09:49)
[2018-05-23] MEDS: Senna/Docusate Sodium 8.6/50 MG Tablet G-TUBE SCH ×2 (09:50→20:39)
[2018-05-23] MEDS: Fluconazole 100 MG Tablet G-TUBE SCH (09:50)
[2018-05-23] MEDS: Lisinopril 10 MG Tablet G-TUBE SCH (09:51)
[2018-05-23 09:56] LABS: Baso % (Auto) 0.2 % (0.0-2.0); Eos # (Auto) 0.2 th/mm3 (0.0-0.4); Eos % (Auto) 1.7 % (0.0-4.0); Hematocrit 31.1 % (35.0-46.0); Hemoglobin 10.7 gm/dL (11.6-15.3); Lymph # (Auto) 1.4 th/mm3 (1.0-4.8); Lymph % (Auto) 13.2 % (9.0-44.0); Mean Corpuscular HGB Conc 34.4 % (32.0-36.0); Mean Corpuscular Hemoglobin 27.1 pg (27.0-34.0); Mean Corpuscular Volume 78.9 fL (80.0-100.0); Mean Platelet Volume 9.8 fL (7.0-11.0); Mono # (Auto) 0.9 th/mm3 (0.0-0.9); Mono % (Auto) 8.8 % (0.0-8.0); Neut # (Auto) 8.2 th/mm3 (1.8-7.7); Neut % (Auto) 76.1 % (16.0-70.0); Platelet Count 282 th/mm3 (150-450); Red Blood Count 3.94 mil/mm3 (4.00-5.30); Red Cell Distribution Width 13.8 % (11.6-17.2); White Blood Count 10.8 th/mm3 (4.0-11.0)
[2018-05-23] MEDS: Piperacil/Tazo 4.5 GM Premix 4.5 GM/100 ML BAG IV.SIG SCH ×3 (10:05→20:39)
--- NOTE | 2018-05-23 10:06 | P.PN ---
Subjective Interval history: Follow up for dysphagia s/p PEG, now sepsis with UTI. The patient continues to spike fevers overnight with Tmax 101.5. She is awake, alert, says she's doing "ok". Denies any specific medical complaints. Physical Exam Vital signs: Vital Signs 05/22/18 12:00 05/22/18 16:00 05/22/18 20:00 Temperature 99.0 F 99.2 F 100.5 F H Pulse Rate 95 H 88 90 Respiratory Rate 14 16 16 Blood Pressure 173/77 H 156/70 H 177/82 H Pulse Oximetry 99 100 98 05/23/18 00:00 05/23/18 04:00 05/23/18 08:00 Temperature 100.7 F H 101.5 F H 99.0 F Pulse Rate 97 H 97 H 95 H Respiratory Rate 16 15 22 Blood Pressure 180/81 H 129/67 145/70 H Pulse Oximetry 99 100 100 Intake & Output 05/22/18 05/23/18 05/23/18 18:59 06:59 18:59 Intake Total 1000 / 1000 350 / 350 Balance 1000 / 1000 350 / 350 Intake: IV 1000 / 1000 350 / 350 D5W/1/2NS + KCL 20 mEq Inj 1, 1000 / 1000 000 ML @ 70 mls/hr IV.CONT . [id number] [facility] Rx#:[id number] Other: Date of Last Bowel Movement 05/19/18 Narrative: GENERAL: Well-nourished, well-developed elderly female patient in [facility]. SKIN: Warm and dry. No rash. HEAD: Normocephalic. Atraumatic. EYES: Pupils equal and round. No scleral icterus. No injection or drainage. ENT: No nasal bleeding or discharge. Mucous membranes pink and moist. Buccal mucosa nonerythematous with no exudates today. CARDIOVASCULAR: Regular rate and rhythm. No murmur appreciated. RESPIRATORY: No accessory muscle use. Clear to auscultation. Breath sounds equal bilaterally. GASTROINTESTINAL: Abdomen soft, non-tender, nondistended. Normoactive bowel sounds x4. G-tube at left upper abdomen, surrounding by dressing, CDI. MUSCULOSKELETAL: No obvious deformities. Lower extremities nonedematous. LUE with diffuse edema peripheral to IV site, no erythema/warmth. NEUROLOGICAL: Drowsy. No obvious cranial nerve deficits. 1/5 strength RUE, 2/5 strength RLE, 4/5 strength LUE/LLE. Slurred speech. Expressive aphasia. Right sided facial droop. PSYCHIATRIC: Calm mood; insight and judgment poor. - Urinary Catheter Management Straight Cath placed during this visit: no Reason for continuing: Not indwelling catheter Results - Labs CBC & Chem 7: 05/23/18 09:02 05/23/18 09:02 Laboratory Results - last 24 hr 05/22/18 05/22/18 05/22/18 12:41 17:17 21:29 WBC RBC Hgb Hct MCV MCH MCHC RDW Plt Count MPV Neut % (Auto) Lymph % (Auto) [place] % (Auto) Eos % (Auto) Baso % (Auto) Neut # (Auto) Lymph # (Auto) [place] # (Auto) Eos # (Auto) Baso # (Auto) WBC Differential Differential Comment POC Glucose 212 H 217 H 287 H 05/23/18 05/23/18 08:15 09:02 WBC 10.8 RBC 3.94 L Hgb 10.7 L Hct 31.1 L MCV 78.9 L MCH 27.1 MCHC 34.4 RDW 13.8 Plt Count 282 MPV 9.8 Neut % (Auto) 76.1 H Lymph % (Auto) 13.2 Clarke % (Auto) 8.8 H Eos % (Auto) 1.7 Baso % (Auto) 0.2 Neut # (Auto) 8.2 H Lymph # (Auto) 1.4 Clarke # (Auto) 0.9 Eos # (Auto) 0.2 Baso # (Auto) 0.0 WBC Differential . 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 Sepsis with UTI: patient spiked fever 101.3 overnight, with +leukocytosis, tachycardia HR 97, and suspected source-UTI. -started on IV Rocephin -monitor urine and blood cultures, adjust antibiotics as needed -monitor for improvement -05/23 patient still with recurrent fevers overnight, will change antibiotics to IV Zosyn Failure to Thrive: suspect secondary to recent CVA and hospitalization in combination with dementia and chronic deconditioning. -Consult PT/OT/ST, needs rehab -Consult palliative care, appreciate recommendations, patient's 's goal remain aggressive at this time -will plan to return to SNF at discharge Dysphagia: acute on chronic. Secondary to recent stroke. -Consulted ST, patient failed swallow -S/p IVF hydration with D5 1/2 NS w/KCl, now discontinued -S/p EGD with PEG placement 05/20 -Manager Media consulted for tube feeding recommendations, appreciate recommendations Oropharyngeal Candidiasis: acute, suspect secondary to dentures and poor oral care -unable to start po Nystatin SS due to NPO status -Given IV Diflucan 100mg qd, transitioned to via peg -EGD without any evidence of esophagitis Recent CVA: with residual right facial droop, slurred speech, aphasia, and right sided weakness. -continue patient's plavix via peg -continue rehab efforts Diabetes Mellitus: chronic -hold patient's metformin for now -Monitor accu-checks and cover with SSI -05/23 blood glucoses elevated today, suspect secondary to patient still receiving IVF with D5, will d/c fluids and monitor BG trend, adjust insulin as needed Hypertension: acute on chronic, BP elevated likely secondary to not receiving po meds while NPO -continue patient's norvasc via peg -continue IV Vasotec 2.5mg q6h prn -monitor BP, adjust antihypertensives as needed -BP still uncontrolled, added lisinopril 10mg daily, also for renal protection with diabetes Dementia: chronic -continue patient's Namenda via peg Hypothyroidism: chronic -continue patient's synthroid -TSH and T4 wnl Chronic Constipation: last reported small BM on 05/17 -continue patient's dulcolax suppository daily -constipation protocol meds prn LUE Swelling: suspect secondary to IV site infiltration -check Doppler U/S to rule out DVT -elevate LUE DVT Prophylaxis: lovenox sq Discharge Planning: Discharge pending further clinical improvement. Patient currently with sepsis/ UTI and still having fevers. Changed antibiotics to IV Zosyn today. Await cultures. Not yet ready for discharge.
[2018-05-23 10:19] LABS: Calcium 9.1 mg/dL (8.5-10.1); Carbon Dioxide 24.6 meq/L (21.0-32.0)
--- NOTE | 2018-05-23 14:32 | US ---
EXAM DATE: 05/23/2018 1:31 PM EDT AGE/SEX: 88 years / Female INDICATIONS: Left arm swelling. CLINICAL DATA: This is the patient's initial encounter. Patient reports that signs and symptoms have been present for 1 day and indicates a pain score of Nonresponsive. MEDICAL/SURGICAL HISTORY: . Cerebral infarct. Diabetes. Hypertension. Hypothyroid. TIA. Hy sterectomy. COMPARISON: No prior exams available for comparison. FINDINGS: The vessels are compressible and augmentation response is documented. No filling defects a re seen. The flow is phasic with respiration. Other: None. CONCLUSION: The study is negative for upper extremity deep venous thrombosis. Electronically signed by: David Pelletier MD 05/23/2018 2:30 PM EDT
[2018-05-23] MEDS: Enoxaparin Inj 40 MG/0.4 ML Syringe SQ SCH (20:39)
[2018-05-24] MEDS: Piperacil/Tazo 4.5 GM Premix 4.5 GM/100 ML BAG IV.SIG SCH ×2 (03:44→12:22)
[2018-05-24] MEDS: Levothyroxine 50 MCG Tablet G-TUBE SCH (05:16)
[2018-05-24] MEDS: Lisinopril 10 MG Tablet G-TUBE SCH (09:22)
[2018-05-24] MEDS: amLODIPine 10 MG Tablet G-TUBE SCH (09:22)
[2018-05-24] MEDS: Fluconazole 100 MG Tablet G-TUBE SCH (09:22)
[2018-05-24] MEDS: Senna/Docusate Sodium 8.6/50 MG Tablet G-TUBE SCH ×2 (09:22→21:08)
[2018-05-24] MEDS: Insulin Detemir Inj 1,000 UNIT/10 ML Vial SQ SCH ×2 (09:23→21:07)
[2018-05-24] MEDS: Insulin NovoLOG Aspart Correctional Sugar Inj SQ SCH ×4 (09:23→21:07)
--- NOTE | 2018-05-24 10:03 | P.PN ---
Subjective Interval history: Follow up for dysphagia s/p PEG, now sepsis with UTI. Patient seen and examined today. Responds okay to questions however occasionally does not respond to any questions or commands. Minimal verbalization. Denies any pain or discomfort. Tolerating tube feeds. Physical Exam Vital signs: Vital Signs 05/23/18 12:00 05/23/18 16:00 05/23/18 20:00 Temperature 98.6 F 97.6 F 98.9 F Pulse Rate 97 H 84 82 Respiratory Rate 20 18 17 Blood Pressure 158/70 H 142/66 H 139/63 Pulse Oximetry 100 100 100 05/23/18 23:00 05/24/18 00:00 05/24/18 04:00 Temperature 98.0 F 99.1 F Pulse Rate 82 85 89 Respiratory Rate 16 17 Blood Pressure 144/67 H 142/69 H Pulse Oximetry 99 100 05/24/18 07:28 05/24/18 08:00 Temperature 99.2 F Pulse Rate 82 85 Respiratory Rate 18 Blood Pressure 150/69 H Pulse Oximetry Intake & Output 05/23/18 05/24/18 05/24/18 18:59 06:59 18:59 Intake Total 1250 / 1250 100 / 100 Output Total 800 / 800 400 / 400 Balance 450 / 450 -300 / -300 Intake: IV 1250 / 1250 100 / 100 D5W/1/2NS + KCL 20 mEq Inj 1, 800 / 800 000 ML @ 70 mls/hr IV.CONT . [id number] [facility] Rx#:[id number] Zosyn 4.5 GM Premix 4.5 gm In 100 / 100 100 / 100 100 ml @ 200 mls/hr IV.SIG Q6H [facility] Rx#:[id number] Output: Urine 800 / 800 400 / 400 Other: Date of Last Bowel Movement 05/19/18 Narrative: GENERAL: Well-nourished, well-developed elderly female patient in [facility]. SKIN: Warm and dry. No rash. HEAD: Normocephalic. Atraumatic. EYES: Pupils equal and round. No scleral icterus. No injection or drainage. ENT: No nasal bleeding or discharge. Buccal mucosa nonerythematous with no exudates today. CARDIOVASCULAR: Regular rate and rhythm. No murmur appreciated. RESPIRATORY: No accessory muscle use. Clear to auscultation. Breath sounds equal bilaterally. GASTROINTESTINAL: Abdomen soft, non-tender, nondistended. Normoactive bowel sounds x4. G-tube at left upper abdomen, surrounding by dressing, CDI. MUSCULOSKELETAL: No obvious deformities. Lower extremities nonedematous. LUE with diffuse edema peripheral to IV site, no erythema/warmth. NEUROLOGICAL: Drowsy. 1/5 strength RUE, 2/5 strength RLE, 4/5 strength LUE/LLE. Slurred speech. Expressive aphasia. Right sided facial droop. - Urinary Catheter Management Straight Cath placed during this visit: no Reason for continuing: Not indwelling catheter Results - Labs CBC & Chem 7: 05/23/18 09:02 05/23/18 09:02 Laboratory Results - last 24 hr 05/22/18 05/23/18 05/23/18 00:45 09:02 12:34 Sodium 134 L Potassium 4.0 Chloride 97 L Carbon Dioxide 24.6 Anion Gap 12 BUN 17 Creatinine 0.82 Estimated GFR 80 L POC Glucose 355 H Random Glucose 255 H Calcium 9.1 Urine Color Yellow Urine Clarity Hazy H Urine pH 6.0 Ur Specific [place] 1.016 Urine Protein 100 H Urine Glucose (UA) Negative Urine Ketones Negative Urine Occult Blood Negative Urine Nitrate Positive H Urine Bilirubin Negative Urine Urobilinogen 4 or greater Ur Leukocyte Esterase Trace H Urine RBC 2 Urine WBC 10 H Ur Squamous Epith Cells 2 Urine Bacteria Many H Urine Mucus Few H Micro UA Comment Culture indicated Urine Culture Comments Culture indicated 05/23/18 05/24/18 17:04 08:08 Sodium Potassium Chloride Carbon Dioxide Anion Gap BUN Creatinine Estimated GFR POC Glucose 277 H 231 H Random Glucose Calcium Urine Color Urine Clarity Urine pH Ur Specific [place] Urine Protein Urine Glucose (UA) Urine Ketones Urine Occult Blood Urine Nitrate Urine Bilirubin Urine Urobilinogen Ur Leukocyte Esterase Urine RBC Urine WBC Ur Squamous Epith Cells Urine Bacteria Urine Mucus Micro UA Comment Urine Culture Comments Microbiology 05/22/18 00:45 Clean Catch Urine Urine Culture - Final Enterococcus faecium VRE 05/22/18 01:07 Blood - Peripheral Aerobic Blood Culture - Preliminary No growth in 1 day 05/22/18 01:07 Blood - Peripheral Anaerobic Blood Culture - Preliminary No growth in 1 day 05/22/18 01:00 Blood - Peripheral Aerobic Blood Culture - Preliminary No growth in 1 day 05/22/18 01:00 Blood - Peripheral Anaerobic Blood Culture - Preliminary No growth in 1 day - Imaging Impressions Venous Doppler Study 05/23/18 00:00 CONCLUSION: The study is negative for upper extremity deep venous thrombosis. 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 Sepsis with UTI: patient spiked fever 101.3 overnight, with +leukocytosis, tachycardia HR 97, and suspected source-UTI. -started on IV Rocephin, switched to IV Zosyn -MDRO cultures with VRE -Infectious disease consulted for further evaluation. Patient will switched to Zyvox secondary to MDR O and sensitivity. Failure to Thrive: suspect secondary to recent CVA and hospitalization in combination with dementia and chronic deconditioning. -Consult PT/OT/ST, needs rehab -Consult palliative care, appreciate recommendations, patient's 's goal remain aggressive at this time -Plan to return to SNF at discharge Dysphagia: acute on chronic. Secondary to recent stroke. -Consulted ST, patient failed swallow -S/p IVF hydration with D5 1/2 NS w/KCl, now discontinued -S/p EGD with PEG placement 05/20 -Pattern Duplicator consulted for tube feeding recommendations, appreciate recommendations -TF now at goal Oropharyngeal Candidiasis: acute, suspect secondary to dentures and poor oral care -unable to start po Nystatin SS due to NPO status -Given IV Diflucan 100mg qd, transitioned to via peg -EGD without any evidence of esophagitis Recent CVA: with residual right facial droop, slurred speech, aphasia, and right sided weakness. -continue patient's plavix via peg -continue rehab efforts Diabetes Mellitus: chronic -hold patient's metformin -Monitor accu-checks and cover with SSI Hypertension: acute on chronic, BP elevated likely secondary to not receiving po meds while NPO -continue patient's norvasc via peg -continue IV Vasotec 2.5mg q6h prn -monitor BP, adjust antihypertensives as needed Dementia: chronic -continue patient's Namenda via peg Hypothyroidism: chronic -continue patient's synthroid -TSH and T4 wnl Chronic Constipation: last reported small BM on 05/17 -continue patient's dulcolax suppository daily -constipation protocol meds prn LUE Swelling: suspect secondary to IV site infiltration -US Doppler negative DVT Prophylaxis: lovenox sq Code Status: Full Code Discussed Condition With: Patient, nursing, Dr. Brock, CM Discharge Planning: Plan to DC home tomorrow with SNF [facility] with antibiotic Zyvox as per ID recommendation.
[2018-05-24] MEDS: Acetaminophen 325 MG Tablet PO PRN (13:26)
--- NOTE | 2018-05-24 13:32 | P.CONID ---
History of Present Illness Service: Infectious disease Consult date: 05/24/18 Reason for Consult: Evaluate patient with UTI, has VRE Primary Care Provider: Otis Huston MD Chief Complaint: dysphagia, failure to thrive History of Present Illness: Patient seen and examined. Records reviewed. Patient is an 88-year-old female, brought into the hospital, for evaluation of failure to thrive. She was recently hospitalized and was diagnosed to have CVA with right-sided weakness. She was discharged, and she was apparently tolerating pured diet with honey thickened liquids. Patient however started to deteriorate, and becoming more lethargic and having trouble swallowing. She has been noted to be more drowsy and weak. There was no mention of any fever or chills. She was evaluated, and subsequently underwent placement of a PEG tube. Patient also has since developed fever since admission. Her chest x-ray has been normal. Her initial urinalysis was okay, but repeat urinalysis on May 22 is now showing pyuria. Patient does not have a Torres. The urine culture done on May 22 is now reported as growing vancomycin resistant enterococcus. Patient was initially on Rocephin, and is now on Zosyn. Infectious disease consultation has been requested to evaluate the patient. Review of Systems unobtainable due to mental status PMFSH - History History Provided By: Family Member, Medical Record - Medical History Medical History: Medical History (Last Reviewed 05/24/18 @ 13:26 by Leonor Potter MD) Anxiety Cerebral infarct Constipation Dementia Depression Diabetes Hyperlipidemia Hypertension Hypothyroidism TIA (transient ischemic attack) Fracture of olecranon process, right, closed (Resolved) - Surgical History Surgical History: Surgical History (Last Reviewed 05/24/18 @ 13:26 by Leonor Potter MD) H/O: hysterectomy (Resolved) - Family History Family History: Family History (Last Updated 05/19/18 @ 10:19 by Mauricio Breen) Mother Breast cancer - Tobacco History Second Hand Smoke Exposure: No Smoking Status: Never smoker - Alcohol History How Often Do You Have a Drink Containing Alcohol: Never - Substance Use History Substance History: No History of Abuse - Travel History Recent Travel in the [place] Within the Last 8 Weeks: No Recent Travel Out of the Country Within the Last 8 Weeks: No - Immunization History Tetanus Immunization: Unsure Hx Influenza Vaccine This Season: Unable to Assess Medications and Allergies Active Medications: Active Medications Acetaminophen (Tylenol) 650 mg PO Q4H PRN PRN Reason: headache/fever/pain1-5 Last Admin: 05/22/18 00:16 Dose: 650 mg Al Hydroxide/Mg Hydroxide (Milk Of Magnesia Liq) 30 ml PO Q12H PRN PRN Reason: Mild Constipation Amlodipine Besylate (Norvasc) 10 mg G-TUBE DAILY [facility] Last Admin: 05/24/18 09:22 Dose: 10 mg Atorvastatin Calcium (Lipitor) 20 mg G-TUBE HS [facility] Last Admin: 05/23/18 20:39 Dose: 20 mg Bisacodyl (Dulcolax Supp) 10 mg RECTAL DAILY PRN PRN Reason: SEVERE CONSITIPATION Clopidogrel Bisulfate (Plavix) 75 mg G-TUBE DAILY [facility] Last Admin: 05/24/18 09:24 Dose: 75 mg Dextrose (D50w Vial) 50 ml IV.PUSH UNSCH PRN PRN Reason: PER HYPOGLYCEMIA PROTOCOL Enalaprilat (Vasotec Inj) 2.5 mg IV.PUSH Q6H PRN PRN Reason: SBP>160, DBP>90 Last Admin: 05/23/18 03:05 Dose: 2.5 mg Enoxaparin Sodium (Lovenox Inj) 40 mg SQ HS [facility] Last Admin: 05/23/18 20:39 Dose: 40 mg Fluconazole (Diflucan) 100 mg G-TUBE DAILY [facility] Last Admin: 05/24/18 09:22 Dose: 100 mg Glucagon (Glucagon Inj) 1 mg OTHER PRN PRN PRN Reason: for Hypoglycemia Protocol Piperacillin/Tazobactam/Dextrose (Zosyn 4.5 Gm Premix) 4.5 gm in 100 mls @ 200 mls/hr IV.SIG Q6H [facility] Last Admin: 05/24/18 12:22 Dose: 200 mls/hr Insulin Aspart (Novolog Insulin Suppl Scale Inj) 0 unit SQ ACHS [facility]; Protocol Last Admin: 05/24/18 09:23 Dose: 3 unit Insulin Detemir (Levemir Inj) 5 unit SQ BID [facility] Last Admin: 05/24/18 09:23 Dose: 5 unit Lactulose (Lactulose Liq) 30 ml PO DAILY PRN PRN Reason: SEVERE CONSITIPATION Levothyroxine Sodium (Synthroid) 50 mcg G-TUBE DAILY@0600 [facility] Last Admin: 05/24/18 05:16 Dose: 50 mcg Lisinopril (Prinivil) 10 mg G-TUBE DAILY [facility] Last Admin: 05/24/18 09:22 Dose: 10 mg Memantine (Namenda) 10 mg G-TUBE BID [facility] Last Admin: 05/24/18 09:22 Dose: 10 mg Senna/Docusate Sodium (Kelsea-Colace) 1 tab G-TUBE BID [facility] Last Admin: 05/24/18 09:22 Dose: 1 tab Sennosides (Senokot) 17.2 mg PO Q12H PRN PRN Reason: Moderate Constipation Sodium Chloride (Ns Flush) 2 ml IV.FLUSH PRN PRN PRN Reason: FLUSH AFTER USING IV ACCESS Last Admin: 05/23/18 09:50 Dose: 2 ml Allergies Allergy/AdvReac Type Severity Reaction Status Date / Time No Known Allergies Allergy Verified 05/18/18 14:14 Home Medications Medication Instructions Recorded Confirmed Type bisacodyl [Dulcolax (bisacodyl)] 10 mg [place] DAILY PRN 05/18/18 05/18/18 History insulin lispro [Humalog U-100 1 sliding scale dose SUB-Q UD 05/18/18 05/18/18 History Insulin] Exam Vital signs: Vital Signs 05/23/18 16:00 05/23/18 20:00 05/23/18 23:00 Temperature 97.6 F 98.9 F Pulse Rate 84 82 82 Respiratory Rate 18 17 Blood Pressure 142/66 H 139/63 Pulse Oximetry 100 100 05/24/18 00:00 05/24/18 04:00 05/24/18 07:28 Temperature 98.0 F 99.1 F Pulse Rate 85 89 82 Respiratory Rate 16 17 Blood Pressure 144/67 H 142/69 H Pulse Oximetry 99 100 05/24/18 08:00 05/24/18 12:00 Temperature 99.2 F 99.8 F H Pulse Rate 85 86 Respiratory Rate 18 18 Blood Pressure 150/69 H 131/61 Pulse Oximetry 97 Intake & Output 05/23/18 05/24/18 05/24/18 18:59 06:59 18:59 Intake Total 1250 / 1250 200 / 200 Output Total 800 / 800 400 / 400 700 / 700 Balance 450 / 450 -200 / -200 -700 / -700 Intake: IV 1250 / 1250 200 / 200 D5W/1/2NS + KCL 20 mEq Inj 1, 800 / 800 000 ML @ 70 mls/hr IV.CONT . [id number] CADEN Rx#:[id number] Zosyn 4.5 GM Premix 4.5 gm In 100 / 100 200 / 200 100 ml @ 200 mls/hr IV.SIG Q6H [facility] Rx#:[id number] Output: Urine 800 / 800 400 / 400 Urine Amount (Catheter) 700 / 700 Straight 700 / 700 Other: Date of Last Bowel Movement 05/19/18 Narrative: Physical Examination GENERAL: Patient is a well-nourished, well-developed female, awake and following some commmands, not in respiratory distress. SKIN: Warm and dry. No generalized rash, no ecchymoses and no evidence of embolic lesions. HEAD: Atraumatic. Normocephalic. No temporal wasting, or tenderness. EYES: [place] conjunctiva. No petechia or hemorrhage. Pupils equal, round and reactive to light. No scleral icterus. No injection or drainage. EARS, NOSE AND THROAT: Nose without bleeding or purulent nasal discharge. No sinus tenderness. Mucous membranes pink and moist. No oral lesions noted. NECK: Trachea midline. Supple and not tender, no meningeal signs CARDIOVASCULAR: Regular rate and rhythm. No murmurs, rubs or gallops heard RESPIRATORY: Clear to auscultation. Breath sounds equal bilaterally. No rales , wheezing or rhonchi ABDOMEN: Soft, non-tender, nondistended. PEG site ok, with no evidence of infection. Bowel sounds present and normoactive. No guarding. No rebound. No organomegaly. EXTREMITIES: No clubbing, cyanosis, or edema. No calf tenderness. Well perfused and warm. NEUROLOGICAL: Awake and following some commands. Has R sided weakness. PSYCHIATRIC: Cooperative LINE: No evidence of infection Results - Labs CBC & Chem 7: 05/23/18 09:02 05/23/18 09:02 Labs: Laboratory Results - last 24 hr 05/23/18 05/24/18 05/24/18 17:04 08:08 12:20 POC Glucose 277 H 231 H 237 H - Imaging Impressions Venous Doppler Study 05/23/18 00:00 CONCLUSION: The study is negative for upper extremity deep venous thrombosis. Assessment and Plan - Plan Impression Fevers, intermittent since admission - CXR ok - initial UA, but has (+) UA now, ?intermittent retention Recent CVA with R sided weakness Failure to thrive due to recent CVA and poor oral intake S/P PEG Recommendation Stop Zosyn Stop Diflucan Zyvox po x 10 days - follow CBC while on Rx Follow temps Monitor progress May need evaluation if she is retaining intermittently I will follow along with you Thank you for this consultation
[2018-05-24] MEDS: Linezolid 600 MG Tablet G-TUBE SCH ×2 (18:01→21:08)
[2018-05-24] MEDS: Enoxaparin Inj 40 MG/0.4 ML Syringe SQ SCH (21:08)
[2018-05-25] MEDS: Levothyroxine 50 MCG Tablet G-TUBE SCH (05:13)
[2018-05-25 09:01] LABS: Baso % (Auto) 0.4 % (0.0-2.0); Eos # (Auto) 0.4 th/mm3 (0.0-0.4); Eos % (Auto) 3.3 % (0.0-4.0); Hematocrit 30.6 % (35.0-46.0); Hemoglobin 10.4 gm/dL (11.6-15.3); Lymph % (Auto) 17.2 % (9.0-44.0); Mean Corpuscular Hemoglobin 26.5 pg (27.0-34.0); Mean Platelet Volume 9.6 fL (7.0-11.0); Mono # (Auto) 0.8 th/mm3 (0.0-0.9); Mono % (Auto) 6.5 % (0.0-8.0); Neut # (Auto) 8.5 th/mm3 (1.8-7.7); Neut % (Auto) 72.6 % (16.0-70.0); Platelet Count 293 th/mm3 (150-450); Red Blood Count 3.93 mil/mm3 (4.00-5.30); Red Cell Distribution Width 13.9 % (11.6-17.2); White Blood Count 11.7 th/mm3 (4.0-11.0)
[2018-05-25] MEDS: Insulin Detemir Inj 1,000 UNIT/10 ML Vial SQ SCH ×2 (09:17→22:14)
[2018-05-25] MEDS: Linezolid 600 MG Tablet G-TUBE SCH ×2 (09:18→22:09)
[2018-05-25] MEDS: Senna/Docusate Sodium 8.6/50 MG Tablet G-TUBE SCH ×2 (09:18→22:09)
[2018-05-25] MEDS: Lisinopril 10 MG Tablet G-TUBE SCH (09:18)
[2018-05-25] MEDS: amLODIPine 10 MG Tablet G-TUBE SCH (09:18)
[2018-05-25 09:54] LABS: Anion Gap 10 meq/L (5-15); Blood Urea Nitrogen 16 mg/dL (7-18); Calcium 9.4 mg/dL (8.5-10.1); Carbon Dioxide 29.2 meq/L (21.0-32.0); Chloride 94 meq/L (98-107); Glomerular Filtration Rate Greater Than 89 mL/min (>89); Glucose,Random 160 mg/dL (74-106); Potassium 4.2 meq/L (3.5-5.1); Sodium 133 meq/L (136-145)
--- NOTE | 2018-05-25 12:43 | P.PN ---
Subjective Interval history: Follow up for dysphagia s/p PEG, now sepsis with UTI due to VRE. Patient is resting in bed. No fever or chills. No acute concerns. Physical Exam Vital signs: Vital Signs 05/24/18 20:00 05/25/18 00:00 05/25/18 04:00 Temperature 98.5 F 99.5 F 99.2 F Pulse Rate 85 81 84 Respiratory Rate 18 18 18 Blood Pressure 158/74 H 144/69 H 163/75 H Pulse Oximetry 98 82 L 99 05/25/18 04:28 05/25/18 04:37 05/25/18 08:47 Temperature 99.6 F Pulse Rate 86 81 Respiratory Rate 18 Blood Pressure 155/72 H 161/78 H Pulse Oximetry 97 05/25/18 11:45 Temperature 99.2 F Pulse Rate 90 Respiratory Rate 16 Blood Pressure 159/75 H Pulse Oximetry 99 Intake & Output 05/24/18 05/25/18 05/25/18 18:59 06:59 18:59 Intake Total 1200 / 1200 Output Total 700 / 700 650 / 650 Balance -700 / -700 550 / 550 Intake: Tube Feeding 450 / 450 Water Bolus Amount 750 / 750 Output: Urine 650 / 650 Urine Amount (Catheter) 700 / 700 Straight 700 / 700 Other: Date of Last Bowel Movement 05/19/18 # Bowel Movements 0 Narrative: GENERAL: Well-nourished, well-developed elderly female patient in [facility]. SKIN: Warm and dry. No rash. HEAD: Normocephalic. Atraumatic. EYES: Pupils equal and round. No scleral icterus. No injection or drainage. ENT: No nasal bleeding or discharge. Buccal mucosa nonerythematous with no exudates today. CARDIOVASCULAR: Regular rate and rhythm. No murmur appreciated. RESPIRATORY: No accessory muscle use. Clear to auscultation. Breath sounds equal bilaterally. GASTROINTESTINAL: Abdomen soft, non-tender, nondistended. Normoactive bowel sounds x4. G-tube at left upper abdomen, surrounding by dressing, CDI. MUSCULOSKELETAL: No obvious deformities. Lower extremities nonedematous. LUE with diffuse edema peripheral to IV site, no erythema/warmth. NEUROLOGICAL: Drowsy. 1/5 strength RUE, 2/5 strength RLE, 4/5 strength LUE/LLE. Slurred speech. Expressive aphasia. Right sided facial droop. - Urinary Catheter Management Straight Cath placed during this visit: no Reason for continuing: Not indwelling catheter Results - Labs CBC & Chem 7: 05/25/18 07:52 05/25/18 07:52 Laboratory Results - last 24 hr 05/24/18 05/24/18 05/25/18 17:48 21:00 07:52 WBC 11.7 H RBC 3.93 L Hgb 10.4 L Hct 30.6 L MCV 78.0 L MCH 26.5 L MCHC 34.0 RDW 13.9 Plt Count 293 MPV 9.6 Neut % (Auto) 72.6 H Lymph % (Auto) 17.2 [place] % (Auto) 6.5 Eos % (Auto) 3.3 Baso % (Auto) 0.4 Neut # (Auto) 8.5 H Lymph # (Auto) 2.0 [place] # (Auto) 0.8 Eos # (Auto) 0.4 Baso # (Auto) 0.0 WBC Differential . Differential Comment Auto diff final Sodium Potassium Chloride Carbon Dioxide Anion Gap BUN Creatinine Estimated GFR POC Glucose 239 H 204 H Random Glucose Calcium 05/25/18 05/25/18 07:52 08:03 WBC RBC Hgb Hct MCV MCH MCHC RDW Plt Count MPV Neut % (Auto) Lymph % (Auto) [place] % (Auto) Eos % (Auto) Baso % (Auto) Neut # (Auto) Lymph # (Auto) [place] # (Auto) Eos # (Auto) Baso # (Auto) WBC Differential Differential Comment Sodium 133 L Potassium 4.2 Chloride 94 L Carbon Dioxide 29.2 Anion Gap 10 BUN 16 Creatinine 0.74 Estimated GFR Greater than 89 POC Glucose 179 H Random Glucose 160 H Calcium 9.4 Microbiology 05/22/18 01:07 Blood - Peripheral Aerobic Blood Culture - Preliminary No growth in 3 days 05/22/18 01:07 Blood - Peripheral Anaerobic Blood Culture - Preliminary No growth in 3 days 05/22/18 01:00 Blood - Peripheral Aerobic Blood Culture - Preliminary No growth in 3 days 05/22/18 01:00 Blood - Peripheral Anaerobic Blood Culture - Preliminary No growth in 3 days 05/22/18 00:45 Clean Catch Urine Urine Culture - Final Enterococcus faecium VRE - Procedures 05/20/18 - EGD with PEG placement Assessment and Plan - Plan 88-year-old female with history of Alzheimer's dementia, diabetes, hypothyroidism, recurrent UTIs, hypertension, chronic constipation, and recent admission 05/07-05/12 for CVA with residual right facial droop and right-sided weakness, presents from the [facility] with worsening dysphagia and weakness. Sepsis with UTI: Had fever 101.3 overnight, with +leukocytosis, tachycardia HR 97, and suspected source-UTI. -ID consulted - Patient is now on Zyvox to address VRE in the Urine. Failure to Thrive: suspect secondary to recent CVA and hospitalization in combination with dementia and chronic deconditioning. -Consult PT/OT/ST, needs rehab -Consulted palliative care. patient's 's goal remain aggressive at this time -Plan to return to SNF at discharge Dysphagia: acute on chronic. Secondary to recent stroke. -Consulted ST, patient failed swallow -TF now at goal - Glucerna at 45cc/hour. Recent CVA: with residual right facial droop, slurred speech, aphasia, and right sided weakness. -continue patient's plavix via peg -continue rehab efforts Diabetes Mellitus: chronic -hold patient's metformin -Monitor accu-checks and cover with SSI and low dose Levemir 5 units QHS. Hypertension: acute on chronic, BP elevated likely secondary to not receiving po meds while NPO -continue patient's Norvasc 10mg Qday via peg -continue IV Vasotec 2.5mg q6h prn Dementia: chronic -continue patient's Namenda via peg Hypothyroidism: chronic -continue patient's synthroid -TSH and T4 within normal range. Chronic Constipation: last reported small BM on 05/17 -continue patient's dulcolax suppository daily -constipation protocol meds prn LUE Swelling: suspect secondary to IV site infiltration -US Doppler negative Full code. Lovenox.
--- NOTE | 2018-05-25 13:16 | P.PNID ---
Subjective Remarks: Patient is an 88-year-old female, brought into the hospital, for evaluation of failure to thrive. She was recently hospitalized and was diagnosed to have CVA with right-sided weakness. She was discharged, and she was apparently tolerating pured diet with honey thickened liquids. Patient however started to deteriorate, and becoming more lethargic and having trouble swallowing. She has been noted to be more drowsy and weak. There was no mention of any fever or chills. She was evaluated, and subsequently underwent placement of a PEG tube. Patient also has since developed fever since admission. Her chest x-ray has been normal. Her initial urinalysis was okay, but repeat urinalysis on May 22 is now showing pyuria. Patient does not have a Torres. The urine culture done on May 22 is now reported as growing vancomycin resistant enterococcus. Patient was initially on Rocephin, and is now on Zosyn. Infectious disease consultation has been requested to evaluate the patient. Notes reviewed Temps low grade WBC slightly up Awake Antibiotics: Zyvox Lines: No evidence of infection Past Medical History: Anxiety Cerebral infarct Constipation Dementia Depression Diabetes Hyperlipidemia Hypertension Hypothyroidism TIA (transient ischemic attack) Fracture of olecranon process, right, closed H/O: hysterectomy Allergies/Adverse Reactions: Allergies No Known Allergies Allergy (Verified 05/18/18 14:14) Objective Vital Signs 05/24/18 20:00 05/25/18 00:00 05/25/18 04:00 Temperature 98.5 F 99.5 F 99.2 F Pulse Rate 85 81 84 Respiratory Rate 18 18 18 Blood Pressure 158/74 H 144/69 H 163/75 H Pulse Oximetry 98 82 L 99 05/25/18 04:28 05/25/18 04:37 05/25/18 08:47 Temperature 99.6 F Pulse Rate 86 81 Respiratory Rate 18 Blood Pressure 155/72 H 161/78 H Pulse Oximetry 97 05/25/18 11:45 Temperature 99.2 F Pulse Rate 90 Respiratory Rate 16 Blood Pressure 159/75 H Pulse Oximetry 99 Intake & Output 05/24/18 05/25/18 05/25/18 18:59 06:59 18:59 Intake Total 1200 / 1200 Output Total 700 / 700 650 / 650 Balance -700 / -700 550 / 550 Intake: Tube Feeding 450 / 450 Water Bolus Amount 750 / 750 Output: Urine 650 / 650 Urine Amount (Catheter) 700 / 700 Straight 700 / 700 Other: Date of Last Bowel Movement 05/19/18 05/25/18 # Bowel Movements 0 05/22/18 01:07 Blood - Peripheral Aerobic Blood Culture - Preliminary No growth in 3 days 05/22/18 01:07 Blood - Peripheral Anaerobic Blood Culture - Preliminary No growth in 3 days 05/22/18 01:00 Blood - Peripheral Aerobic Blood Culture - Preliminary No growth in 3 days 05/22/18 01:00 Blood - Peripheral Anaerobic Blood Culture - Preliminary No growth in 3 days 05/22/18 00:45 Clean Catch Urine Urine Culture - Final Enterococcus faecium VRE Lab - Hematology Results 05/25/18 07:52 WBC 11.7 H RBC 3.93 L Hgb 10.4 L Hct 30.6 L MCV 78.0 L MCH 26.5 L MCHC 34.0 RDW 13.9 Plt Count 293 MPV 9.6 Neut % (Auto) 72.6 H Lymph % (Auto) 17.2 [place] % (Auto) 6.5 Eos % (Auto) 3.3 Baso % (Auto) 0.4 Neut # (Auto) 8.5 H Lymph # (Auto) 2.0 [place] # (Auto) 0.8 Eos # (Auto) 0.4 Baso # (Auto) 0.0 WBC Differential . Differential Comment Auto diff final Lab - Chemistry Results 05/23/18 05/24/18 05/24/18 17:04 08:08 12:20 Sodium Potassium Chloride Carbon Dioxide Anion Gap BUN Creatinine Estimated GFR POC Glucose 277 H 231 H 237 H Random Glucose Calcium 05/24/18 05/24/18 05/25/18 17:48 21:00 07:52 Sodium 133 L Potassium 4.2 Chloride 94 L Carbon Dioxide 29.2 Anion Gap 10 BUN 16 Creatinine 0.74 Estimated GFR Greater than 89 POC Glucose 239 H 204 H Random Glucose 160 H Calcium 9.4 05/25/18 05/25/18 08:03 12:57 Sodium Potassium Chloride Carbon Dioxide Anion Gap BUN Creatinine Estimated GFR POC Glucose 179 H 231 H Random Glucose Calcium Imaging: ITS Impressions Chest X-Ray 05/22/18 00:00 CONCLUSION: No acute disease Venous Doppler Study 05/23/18 00:00 CONCLUSION: The study is negative for upper extremity deep venous thrombosis. Physical Exam: GENERAL: awake and following some commmands, not in respiratory distress. SKIN: Warm and dry. No generalized rash, no ecchymoses and no evidence of embolic lesions. HEAD: Atraumatic. Normocephalic. No temporal wasting, or tenderness. EYES: [place] conjunctiva. No petechia or hemorrhage. Pupils equal, round and reactive to light. No scleral icterus. No injection or drainage. EARS, NOSE AND THROAT: Nose without bleeding or purulent nasal discharge. No sinus tenderness. Mucous membranes pink and moist. No oral lesions noted. NECK: Trachea midline. Supple and not tender, no meningeal signs CARDIOVASCULAR: Regular rate and rhythm. No murmurs, rubs or gallops heard RESPIRATORY: Clear to auscultation. Breath sounds equal bilaterally. No rales , wheezing or rhonchi ABDOMEN: Soft, non-tender, nondistended. PEG site ok, with no evidence of infection. Bowel sounds present and normoactive. No guarding. No rebound. No organomegaly. EXTREMITIES: No clubbing, cyanosis, or edema. No calf tenderness. Well perfused and warm. NEUROLOGICAL: Awake and following some commands. Has R sided weakness. PSYCHIATRIC: Cooperative LINE: No evidence of infection Assessment and Plan - Plan Impression Fevers, intermittent since admission - CXR ok - initial UA, but has (+) UA now, ?intermittent retention Recent CVA with R sided weakness Failure to thrive due to recent CVA and poor oral intake S/P PEG Recommendation Zyvox po x 10 days - follow CBC while on Rx Follow temps Monitor progress May need evaluation if she is retaining intermittently
--- NOTE | 2018-05-25 17:21 | P.PNPAL ---
Reason for Visit Reason for visit: a. To assist with evaluation and management of symptoms including: Dysphagia, debility b. To assist medical decision maker(s) with: better understanding of current medical conditions; weighing benefits/burdens of medical treatment options; making medical treatment decisions. Subjective Subjective/Interval History: Follow-up medically necessary for symptom management and further clarification of goals of care. Patient seen and examined in his room in the presence of a . Patient awake, minimally verbalizing today-speech slurred. Patient underwent EGD with PEG tube placement on 05/20/2018. Glucerna 1.5 currently infusing via PEG tube 840 mL's per hour. Interim course: * Patient febrile with T-max of 101.5-septic with urinary tract infection and transferred to medical floor. * Urine culture collected on 05/22/18 grew Enterococcus faecium VRE * Edema to left upper extremity- ultrasound venous Doppler to left upper extremity on 05/23/18 did not show deep venous thrombosis. * Chest x-ray on 05/22/18 showed no acute disease * Infectious disease Dr. Potter consulted on 05/24/18 to evaluate and manage patient with urinary tract infection, recommended starting patient on Zyvox po 10 days. Laboratory workup today revealing WBC 11.7, hemoglobin 10.4, hematocrit 30.6, platelet count 293, sodium 133, potassium 4.2, BUN/creatinine 16/0.74, random glucose 160, calcium 9.4. Speech therapy following recommended n.p.o. and to continue tube feeding via PEG. Updated patient's on patient's current medical condition. Patient 's goals remain aggressive and states that he continues to wish for the best. Patient's states that patient has been more awake for the past 2 days and he hopes that she will get better and go back to the SNF most likely [facility]. Family/Friend Interactions: Brief discussion at bedside with patient`s . Advance Directives Living Will: Never completed Health Care Surrogate: Never completed Durable Power of Horticultural Specialty Grower Field: Never completed Health Care Surrogate Name and Number: HCP: Alexis Tristan [phone] Objective Vital Signs: Vital Signs 05/24/18 20:00 05/25/18 00:00 05/25/18 04:00 Temperature 98.5 F 99.5 F 99.2 F Pulse Rate 85 81 84 Respiratory Rate 18 18 18 Blood Pressure 158/74 H 144/69 H 163/75 H Pulse Oximetry 98 82 L 99 05/25/18 04:28 05/25/18 04:37 05/25/18 08:47 Temperature 99.6 F Pulse Rate 86 81 Respiratory Rate 18 Blood Pressure 155/72 H 161/78 H Pulse Oximetry 97 05/25/18 11:45 05/25/18 16:42 Temperature 99.2 F 97.6 F Pulse Rate 90 60 Respiratory Rate 16 16 Blood Pressure 159/75 H 106/62 Pulse Oximetry 99 91 L Intake & Output 05/24/18 05/25/18 05/25/18 18:59 06:59 18:59 Intake Total 1200 / 1200 Output Total 700 / 700 650 / 650 Balance -700 / -700 550 / 550 Intake: Tube Feeding 450 / 450 Water Bolus Amount 750 / 750 Output: Urine 650 / 650 Urine Amount (Catheter) 700 / 700 Straight 700 / 700 Other: Date of Last Bowel Movement 05/19/18 05/25/18 # Bowel Movements 0 Physical Exam: CONSTITUTIONAL/GENERAL: This is an elderly patient, lethargic in no apparent distress. TUBES/LINES/DRAINS: PIV, PEG tube SKIN: No jaundice, rashes, or lesions. Ecchymoses on upper extremities. Normothermic HEAD: Atraumatic. Normocephalic. EYES: PERRLA. No scleral icterus. No injection or drainage. Fundi not examined. ENT: Hearing grossly normal. No nasal bleeding or drainage. Moist oral mucosa NECK: Trachea midline. Supple, nontender. CARDIOVASCULAR:S1, S2 normal, no gallops, or rubs. No JVD. Peripheral pulses symmetric. RESPIRATORY/CHEST: Symmetric, unlabored respirations.Diminished in the bases. No wheezes, rales, or rhonchi. GASTROINTESTINAL: Abdomen soft, non-tender, nondistended. No guarding. Bowel sounds present. PEG tube with TF infusing. GENITOURINARY: Without palpable bladder distension. MUSCULOSKELETAL: Extremities without clubbing, cyanosis, or edema. No joint tenderness or effusion noted. No calf tenderness. No mottling or clubbing. NEUROLOGICAL: Awake, lethargic, slurred speech. Spontaneously moving LUE and LLE. Flaccid Right side. Right sided facial droop. PSYCHIATRIC: Calm. Diagnostic Tests Laboratory: Laboratory Results - last 72 hr 05/22/18 05/22/18 05/22/18 00:45 17:17 21:29 WBC RBC Hgb Hct MCV MCH MCHC RDW Plt Count MPV Neut % (Auto) Lymph % (Auto) [place] % (Auto) Eos % (Auto) Baso % (Auto) Neut # (Auto) Lymph # (Auto) [place] # (Auto) Eos # (Auto) Baso # (Auto) WBC Differential Differential Comment Sodium Potassium Chloride Carbon Dioxide Anion Gap BUN Creatinine Estimated GFR POC Glucose 217 H 287 H Random Glucose Calcium Urine Color Yellow Urine Clarity Hazy H Urine pH 6.0 Ur Specific [place] 1.016 Urine Protein 100 H Urine Glucose (UA) Negative Urine Ketones Negative Urine Occult Blood Negative Urine Nitrate Positive H Urine Bilirubin Negative Urine Urobilinogen 4 or greater Ur Leukocyte Esterase Trace H Urine RBC 2 Urine WBC 10 H Ur Squamous Epith Cells 2 Urine Bacteria Many H Urine Mucus Few H Micro UA Comment Culture indicated Urine Culture Comments Culture indicated 05/23/18 05/23/18 05/23/18 08:15 09:02 09:02 WBC 10.8 RBC 3.94 L Hgb 10.7 L Hct 31.1 L MCV 78.9 L MCH 27.1 MCHC 34.4 RDW 13.8 Plt Count 282 MPV 9.8 Neut % (Auto) 76.1 H Lymph % (Auto) 13.2 [place] % (Auto) 8.8 H Eos % (Auto) 1.7 Baso % (Auto) 0.2 Neut # (Auto) 8.2 H Lymph # (Auto) 1.4 [place] # (Auto) 0.9 Eos # (Auto) 0.2 Baso # (Auto) 0.0 WBC Differential . Differential Comment Auto diff final Sodium 134 L Potassium 4.0 Chloride 97 L Carbon Dioxide 24.6 Anion Gap 12 BUN 17 Creatinine 0.82 Estimated GFR 80 L POC Glucose 310 H Random Glucose 255 H Calcium 9.1 Urine Color Urine Clarity Urine pH Ur Specific [place] Urine Protein Urine Glucose (UA) Urine Ketones Urine Occult Blood Urine Nitrate Urine Bilirubin Urine Urobilinogen Ur Leukocyte Esterase Urine RBC Urine WBC Ur Squamous Epith Cells Urine Bacteria Urine Mucus Micro UA Comment Urine Culture Comments 05/23/18 05/23/18 05/24/18 12:34 17:04 08:08 WBC RBC Hgb Hct MCV MCH MCHC RDW Plt Count MPV Neut % (Auto) Lymph % (Auto) [place] % (Auto) Eos % (Auto) Baso % (Auto) Neut # (Auto) Lymph # (Auto) [place] # (Auto) Eos # (Auto) Baso # (Auto) WBC Differential Differential Comment Sodium Potassium Chloride Carbon Dioxide Anion Gap BUN Creatinine Estimated GFR POC Glucose 355 H 277 H 231 H Random Glucose Calcium Urine Color Urine Clarity Urine pH Ur Specific [place] Urine Protein Urine Glucose (UA) Urine Ketones Urine Occult Blood Urine Nitrate Urine Bilirubin Urine Urobilinogen Ur Leukocyte Esterase Urine RBC Urine WBC Ur Squamous Epith Cells Urine Bacteria Urine Mucus Micro UA Comment Urine Culture Comments 05/24/18 05/24/18 05/24/18 12:20 17:48 21:00 WBC RBC Hgb Hct MCV MCH MCHC RDW Plt Count MPV Neut % (Auto) Lymph % (Auto) [place] % (Auto) Eos % (Auto) Baso % (Auto) Neut # (Auto) Lymph # (Auto) [place] # (Auto) Eos # (Auto) Baso # (Auto) WBC Differential Differential Comment Sodium Potassium Chloride Carbon Dioxide Anion Gap BUN Creatinine Estimated GFR POC Glucose 237 H 239 H 204 H Random Glucose Calcium Urine Color Urine Clarity Urine pH Ur Specific [place] Urine Protein Urine Glucose (UA) Urine Ketones Urine Occult Blood Urine Nitrate Urine Bilirubin Urine Urobilinogen Ur Leukocyte Esterase Urine RBC Urine WBC Ur Squamous Epith Cells Urine Bacteria Urine Mucus Micro UA Comment Urine Culture Comments 05/25/18 05/25/18 05/25/18 07:52 07:52 08:03 WBC 11.7 H RBC 3.93 L Hgb 10.4 L Hct 30.6 L MCV 78.0 L MCH 26.5 L MCHC 34.0 RDW 13.9 Plt Count 293 MPV 9.6 Neut % (Auto) 72.6 H Lymph % (Auto) 17.2 [place] % (Auto) 6.5 Eos % (Auto) 3.3 Baso % (Auto) 0.4 Neut # (Auto) 8.5 H Lymph # (Auto) 2.0 [place] # (Auto) 0.8 Eos # (Auto) 0.4 Baso # (Auto) 0.0 WBC Differential . Differential Comment Auto diff final Sodium 133 L Potassium 4.2 Chloride 94 L Carbon Dioxide 29.2 Anion Gap 10 BUN 16 Creatinine 0.74 Estimated GFR Greater than 89 POC Glucose 179 H Random Glucose 160 H Calcium 9.4 Urine Color Urine Clarity Urine pH Ur Specific [place] Urine Protein Urine Glucose (UA) Urine Ketones Urine Occult Blood Urine Nitrate Urine Bilirubin Urine Urobilinogen Ur Leukocyte Esterase Urine RBC Urine WBC Ur Squamous Epith Cells Urine Bacteria Urine Mucus Micro UA Comment Urine Culture Comments 05/25/18 12:57 WBC RBC Hgb Hct MCV MCH MCHC RDW Plt Count MPV Neut % (Auto) Lymph % (Auto) [place] % (Auto) Eos % (Auto) Baso % (Auto) Neut # (Auto) Lymph # (Auto) [place] # (Auto) Eos # (Auto) Baso # (Auto) WBC Differential Differential Comment Sodium Potassium Chloride Carbon Dioxide Anion Gap BUN Creatinine Estimated GFR POC Glucose 231 H Random Glucose Calcium Urine Color Urine Clarity Urine pH Ur Specific [place] Urine Protein Urine Glucose (UA) Urine Ketones Urine Occult Blood Urine Nitrate Urine Bilirubin Urine Urobilinogen Ur Leukocyte Esterase Urine RBC Urine WBC Ur Squamous Epith Cells Urine Bacteria Urine Mucus Micro UA Comment Urine Culture Comments Result Diagrams: 05/25/18 07:52 05/25/18 07:52 Microbiology: Microbiology 05/22/18 01:07 Aerobic Blood Culture - Preliminary Blood - Peripheral No growth in 3 days Anaerobic Blood Culture - Preliminary No growth in 3 days 05/22/18 01:00 Aerobic Blood Culture - Preliminary Blood - Peripheral No growth in 3 days Anaerobic Blood Culture - Preliminary No growth in 3 days 05/22/18 00:45 Urine Culture - Final Clean Catch Urine Enterococcus faecium VRE Imaging: Chest X-Ray 05/22/18 00:00 CONCLUSION: No acute disease Venous Doppler Study 05/23/18 00:00 CONCLUSION: The study is negative for upper extremity deep venous thrombosis. Procedures: 05/20/2018-EGD with PEG tube placement Assessment and Plan - Symptom Scale (1) Decreased oral intake 0-10 Scale: Unable to quantify (2) Debility 0-10 Scale: Unable to quantify Pertinent Non-Medical Issues: Psychosocial: Patient was born in [place], [place] and raised in [place]. 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 Patient also served in the [employer]. Patient has been once to a Alexis of 50 years. Patient had a stepson who is now . Spiritual:Patient is Hoahaoism Legal: Never completed advanced directive Ethical issues impacting care: None identified at this time Important Contacts: Spouse- Alexis Tristan - [phone] Prognosis: Mrs. Tristan is a 88-year-old patient with a past medical history significant for stroke with right sided deficits, multiple TIAs, hypertension, heart murmur , hypothyroidism, dementia, diabetes mellitus type 2, depression, anxiety and urinary tract infection. Patient presented to the ER on 05/18/18 via EMS from a [place] [facility] for further evaluation of dysphagia with failure to thrive. Given ongoing multiple comorbidities, patient remains at risk for further complications, deterioration and decline. Code Status: Full Code Plan: PLAN: Legal decision maker: Patient has a history of dementia and is not able to participate in medical decision making. According to [place] statute, he Alexis Tristan who would serve as her healthcare proxy. Goals: Goals remain aggressive per discussion with patient`s who is patient`s HCP. 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 CODE STATUS: Full code SYMPTOMS: * Dysphagia: Patient has a history of stroke and multiple TIAs in the past with the most recent stroke in May, which left her with right-sided hemiparesis. Patient was discharged to a SNF on pured diet. She came in with complaints of dysphagia, pocketing food. S/P PEG placement on 05/20/18. Speech therapy continues to follow and recommending n.p.o. Glucerna infusing at 40 mL' s per hour. Continue to monitor for signs of aspiration. * Debility: Progressive. Patient has a history of stroke with residual right- sided weakness. Prior to recent stroke patient only ambulated short distances with assistance and mostly used a wheelchair. Speech therapy, Occupational Therapy and physical therapy consulted. PT recommended PT at rehab. Unsure if patient will be able to participate effectively in physical therapy given her cognitive and physical limitations. Palliative care will continue to follow the patient during hospital course as condition evolves, to assist patient/decision-maker with understanding of their medical conditions, weighing benefits/burdens of treatment options, for clarification of goals of treatment. Additionally will assist with any symptoms of palliative concern Attestation Collaborating MD Comments: Chart reviewed. Case discussed with palliative care nurse practitioner. Above [employer]IN[employer] FARM MANAGER note reviewed and I concur. . Attestation: To help prompt me to consider important information that might be impacting today's encounter and assessment, information from prior notes written by myself or my colleagues may have been "brought forward" into today's note. My signature on this note, however, is an attestation that I personally performed the exam, history, and/or decision-making noted today, and, unless otherwise indicated, the interactions with patient, family, and staff as well as the review of records all occurred today. I also attest that the listed assessment and stated plan reflect my best clinical judgment today based on the combination of historical information, prior notes, and today's exam/ interactions. When time spent is documented, it refers only to time spent today by the signer, or if indicated, combined time spent today by collaborating physician/nurse practitioner.
[2018-05-25] MEDS: Insulin NovoLOG Aspart Correctional Sugar Inj SQ SCH ×2 (22:07→22:33)
[2018-05-25] MEDS: Enoxaparin Inj 40 MG/0.4 ML Syringe SQ SCH (22:15)
[2018-05-26] MEDS: Levothyroxine 50 MCG Tablet G-TUBE SCH (05:13)
[2018-05-26] MEDS: Insulin Detemir Inj 1,000 UNIT/10 ML Vial SQ SCH (09:35)
[2018-05-26] MEDS: Insulin NovoLOG Aspart Correctional Sugar Inj SQ SCH ×2 (09:36→13:00)
[2018-05-26] MEDS: Senna/Docusate Sodium 8.6/50 MG Tablet G-TUBE SCH (09:37)
[2018-05-26] MEDS: Linezolid 600 MG Tablet G-TUBE SCH (09:38)
[2018-05-26] MEDS: amLODIPine 10 MG Tablet G-TUBE SCH (09:39)
[2018-05-26] MEDS: Lisinopril 10 MG Tablet G-TUBE SCH (09:40)
--- NOTE | 2018-05-26 14:20 | P.DS ---
Date of admission: 05/23/18 10:06 Primary care physician: Otis Huston MD Brief History from admission: 88-year-old female with history of Alzheimer's dementia, diabetes, hypothyroidism, recurrent UTIs, hypertension, chronic constipation, and recent admission 05/07-05/12 for CVA with residual right facial droop and right-sided weakness, presents from the [facility] with worsening dysphagia and weakness. The patient is very drowsy, only awakens for a few questions, and answers with "okay". History supplemented from the EMR and the patient's sister Lisa Rodriguez at bedside. The patient's sister reports that the patient was actually doing better when she was discharged from the hospital on 05/12. She states the patient was able to tolerate pured diet with honey thickened liquids at that time, and was more awake/alert. She states upon her arrival to SNF, they advanced her diet to mechanical soft, and was noticing that the patient was holding the food in her mouth, and choking on her food. Patient was put back on pured diet, however still had minimal intake and the patient appeared to have some pain with swallowing. Patient sister reports that she has been more drowsy and fatigued. Denies any recent fevers or chills. She reports recurrent UTIs, however UA here has been negative. She also reports chronic constipation, however believes she had a small BM yesterday. Discussed the patient's CODE STATUS and goals of care with the patient's sister, however she is uncertain on CODE STATUS. She believes that the patient's would want full code and would want her to get stronger at rehab, however she is uncertain. Patient's sister agrees to palliative care consultation. Review of systems limited as the patient falls asleep throughout conversation/exam and has expressive aphasia and slurred speech. DS: Medications - Discharge Medications Prescriptions: linezolid [Zyvox] 600 mg G-TUBE Q12HR #18 tab lisinopril 10 mg G-TUBE DAILY #30 tab DS: Summary Hospital Course: 88-year-old female with history of Alzheimer's dementia, diabetes, hypothyroidism, recurrent UTIs, hypertension, chronic constipation, and recent admission 05/07-05/12 for CVA with residual right facial droop and right-sided weakness, presents from the [facility] SNF with worsening dysphagia and weakness. Sepsis with UTI: Had fever 101.3 overnight, with +leukocytosis, tachycardia HR 97, and suspected source-UTI. -ID consulted - Patient is now on Zyvox to address VRE in the Urine. -Patient remained afebrile and ID cleared for discharge. I discussed with ID prior to discharging patient. Failure to Thrive: suspect secondary to recent CVA and hospitalization in combination with dementia and chronic deconditioning. -Consult PT/OT/ST, needs rehab -Consulted palliative care. patient's 's goal remain aggressive at this time -Plan to return to SNF at discharge Dysphagia: acute on chronic. Secondary to recent stroke. -Consulted ST, patient failed swallow -TF now at goal - Glucerna at 45cc/hour. Recent CVA: with residual right facial droop, slurred speech, aphasia, and right sided weakness. -continue patient's plavix via peg -continue rehab efforts Diabetes Mellitus: chronic -hold patient's metformin -Monitor accu-checks and cover with SSI and low dose Levemir 5 units QHS. Hypertension: acute on chronic, BP elevated likely secondary to not receiving po meds while NPO -continue patient's Norvasc 10mg Qday via peg -continue IV Vasotec 2.5mg q6h prn Dementia: chronic -continue patient's Namenda via peg Hypothyroidism: chronic -continue patient's Synthroid -TSH and T4 within normal range. Chronic Constipation: last reported small BM on 05/17 -continue patient's Dulcolax suppository daily -constipation protocol meds prn LUE Swelling: suspect secondary to IV site infiltration -US Doppler negative Full code. Lovenox. - Time Spent with Patient Total time spent providing and/or coordinating discharge services: Less than 30 minutes - Quality: VTE Deep Vein Thrombosis/Pulmonary Embolism Present on Admission: No Exam Vital signs: Vital Signs 05/25/18 16:42 05/25/18 20:00 05/26/18 00:00 Temperature 97.6 F 99.8 F H 98.4 F Pulse Rate 60 82 86 Respiratory Rate 16 18 18 Blood Pressure 106/62 167/77 H 169/75 H Pulse Oximetry 91 L 99 100 05/26/18 04:00 05/26/18 05:28 05/26/18 08:00 Temperature 98 F 98 F Pulse Rate 86 81 84 Respiratory Rate 18 16 Blood Pressure 157/68 H 104/57 L Pulse Oximetry 100 99 05/26/18 12:00 Temperature 98.5 F Pulse Rate 91 H Respiratory Rate 17 Blood Pressure 164/70 H Pulse Oximetry Intake & Output 05/25/18 05/26/18 05/26/18 18:59 06:59 18:59 Intake Total 1200 / 1200 Output Total 350 / 350 Balance 850 / 850 Intake: Tube Feeding 450 / 450 Water Bolus Amount 750 / 750 Output: Urine 350 / 350 Other: # Voids 5 Date of Last Bowel Movement 05/25/18 05/25/18 Results Procedures completed during hospitalization: 05/20/18 - EGD with PEG placement Labs on day of discharge: Labs from last 24 hours 05/26/18 05/26/18 05/25/18 12:03 07:35 22:14 POC Glucose 248 H 195 H 218 H 05/25/18 17:49 POC Glucose 246 H Preliminary micro results at discharge 05/22/18 01:07 Aerobic Blood Culture - Preliminary Blood - Peripheral No growth in 4 days Anaerobic Blood Culture - Preliminary No growth in 4 days 05/22/18 01:00 Aerobic Blood Culture - Preliminary Blood - Peripheral No growth in 4 days Anaerobic Blood Culture - Preliminary No growth in 4 days - Impressions ITS Impressions Chest X-Ray 05/22/18 00:00 CONCLUSION: No acute disease Venous Doppler Study 05/23/18 00:00 CONCLUSION: The study is negative for upper extremity deep venous thrombosis. Discharge Plan - Discharge Disposition Patient Disposition: 03 Discharge to SNF - Discharge Condition Condition: Stable - Discharge Order Discharge Orders: Discharge Order (Routine); Ordered 05/26/18 Ordered By: Liz Cabrera - Discharge Details Anticipated Discharge Date: 05/26/18 - Physicians Team Primary Care Provider: Otis Huston Attending Provider: Liz Cabrera Other Providers: Sumanth Arredondo MD ; Radha Hendricks MD ; [facility] ; [facility] ; Leonor Potter MD
== END 2018-05-26 15:56 ==
LOC: NEPE 14:03 → NEDA 14:03 → NEPGCP 19:50 → N05 05-24 14:31
PROVIDERS: ADMIT Hospitalist; ATTEND Hospitalist
PROC: PANENDO (2018-05-20 11:30)